=== PATIENT | female | born 1970 | race Caucasian/White ===

== ENCOUNTER 2016-08-03 10:41 | Inpatient (IN) | payer OTHER ==
[~2016-08-03] VITALS: Ht 157.4 cm; Wt 110.0 kg
[2016-08-03] VITALS (8 sets, daily range): BP systolic 114–140; BP diastolic 73–95
--- NOTE | ~2016-08-03 | CON ---
[place], [place] REPORT OF CONSULTATION NAME: MELISSA ROBBINS [facility] #: [id number] UNIT #: [id number] ROOM: 522 DOCTOR: SARIKA WEAVER MD BIRTHDATE: [birth year] DOS: 08/03/2016 CARDIOLOGY CONSULTATION REASON FOR CONSULTATION: Chest pain. HISTORY OF PRESENT ILLNESS: This is one of multiple hospitalizations for this patient, who is a 46-year-old woman who is known to have coronary artery disease. She initially presented to a hospital in [place], [place], with chest pain in August 2014. She ruled out for myocardial infarction; however, a stress test was abnormal. She was taken to the catheterization laboratory on 09/11/2014. Her left main was normal. The LAD had a 90% proximal and a 50% distal stenosis. The first diagonal had a 70% stenosis. These lesions were treated with Promus drug-eluting stents. The right coronary artery was dominant and patent. The circumflex was also patent. The patient had good relief of her symptoms. She presented to the [facility] on 11/10/2014 with atypical chest pain. She ruled out for myocardial infarction. A pharmacologic stress test showed an ejection fraction of 78% with a small area of anterior ischemia. The patient was managed medically until 09/05/2015 when she presented again with chest pain. A myocardial infarction was ruled out and she was once again managed medically. She came back into the hospital in September of 2015 with worsening chest discomfort, fatigue and dyspnea. She had no evidence for myocardial damage. A pharmacologic myocardial perfusion study was felt to be normal and she was again treated medically. She presented again to the hospital in January of 2016 with chest pain. The perfusion study done at that time showed mild transient cavity dilation with a small area of distal anterolateral ischemia. Based on her recurrent chest discomfort and mildly abnormal stress test, she was referred to [facility] for catheterization. The catheterization showed a patent LAD stent and no significant coronary artery disease. It was felt that her pains were noncardiac in origin. She presented again to the hospital on 05/30/2016 with chest pain and ruled out for myocardial infarction. No other testing was done at that time. It was felt at that point that her pains were reproducible to palpation. Her symptoms resolved spontaneously, but recurred again today while she was doing laundry. The pain is a sharp left parasternal pain with some radiation to her neck and proximal left arm, it is not made worse by deep breath or exercise. Movement does make it worse. She is somewhat short of breath with the pain, but denies nausea or diaphoresis. PAST MEDICAL HISTORY: Includes the followin. Cholecystitis, the patient has been managed conservatively because of her atherosclerotic heart disease. 2. History of hypertension. 3. Gastroesophageal reflux disease. 4. Degenerative joint disease involving the left knee. 5. Diverticulitis. 6. Ovarian cyst. 7. Anxiety and depression. [place], [place] REPORT OF CONSULTATION NAME: MELISSA ROBBINS UNIT #: [id number] ROOM: 522 DOCTOR: SARIKA WEAVER MD BIRTHDATE: [birth year] 8. Lazy right eye (strabismus since childhood). 9. Presentation with unstable angina at [place], [place], in August of 2014. The patient did undergo angioplasty and stenting of the LAD and diagonal branch. Multiple hospitalizations with chest pain since then. 10. Catheterization on January 2016 showed no evidence for recurrent coronary disease. REVIEW OF SYSTEMS: The patient denies diplopia or loss of vision. She denies lightheadedness, syncope or focal weakness. She denies nausea or vomiting. She has had some dyspnea. She denies fevers, chills, sweats or recent weight change. She denies any coffee-ground emesis. She denies bleeding from any site. She denies polydipsia or polyuria. She denies heat or cold intolerance. She denies any change in her bowel or bladder habits. She denies any skin rashes. She denies any peripheral edema. The remainder of the review of systems is negative except as noted above. FAMILY HISTORY: Positive for coronary artery disease in her brother who had a catheterization. Parents do not have a history of heart disease, high blood pressure or diabetes. MEDICATIONS PRIOR TO ADMISSION: Aspirin 81 mg daily, clopidogrel 75 mg daily, furosemide 20 mg daily, lisinopril 5 mg daily, lorazepam 1 mg p.o. b.i.d. p.r.n., metformin 500 mg b.i.d., metoprolol 25 mg b.i.d., potassium 20 mEq daily, ranitidine 150 mg at bedtime and nitroglycerin sublingually p.r.n. ALLERGIES: She has no known drug allergies. SOCIAL HISTORY: The patient was a smoker, but quit about 2 years ago. She does not consume significant amounts of alcohol. PHYSICAL EXAMINATION: GENERAL: The patient is a morbidly obese white female who is awake, alert and oriented. VITAL SIGNS: Pulse is 70 and regular, blood pressure is 114/73. She is afebrile. She weighs 110 kg and has a body mass index of 44.4. HEENT: Normocephalic, atraumatic. Extraocular muscles are intact. Sclerae are clear. Pupils are equal, round and reactive to light. The oral mucosa is moist. Tongue is midline. NECK: Supple. She has no jugular distention. Carotids are full. She has no bruits. LUNGS: Respirations are unlabored. Her chest is clear to auscultation and percussion. She has no presacral edema. She does have tenderness along her left parasternal region, which does reproduce her presenting chest pain. CARDIOVASCULAR: Her heart has a regular rhythm with a soft S4 gallop, but no S3 or murmur. The PMI is not displaced. She has no precordial heave, lift or thrill. ABDOMEN: Soft and normally active without masses, organomegaly or bruits. EXTREMITIES: Showed no edema. Peripheral pulses are palpable in the feet bilaterally. [place], [place] REPORT OF CONSULTATION NAME: MELISSA ROBBINS UNIT #: [id number] ROOM: 522 DOCTOR: SARIKA WEAVER MD BIRTHDATE: [birth year] LABORATORY DATA: I reviewed her electrocardiogram, which shows sinus rhythm and is a normal tracing. CK-MB and troponin are all normal thus far. IMPRESSION: 1. Recurrent chest pain. The patient is known to have coronary artery disease and is status post stenting to the LAD and diagonal; however, her more recent pains have been atypical and a catheterization within the last 6 months showed no progression of disease or in-stent restenosis. In addition, her pain is reproducible upon palpation of her chest, it seems very unlikely therefore that her pains represent recurrent coronary artery disease and are much more likely to be musculoskeletal in origin. 2. Morbid obesity. 3. Type 2 diabetes mellitus. PLAN: I will follow serial enzymes and EKGs. If her symptoms have not changed by morning and if her EKG and enzymes remain normal, then I think we can conclude that her pains are musculoskeletal rather than coronary ischemia in origin and treat her with supportive care. I thank Dr. Romo for asking our advice regarding her care. SARIKA WEAVER MD CM:CONSTR:REPORT OF CONSULTATION 08 08/04/16 1526 interface
[~2016-08-03 10:41] MED LIST: ACID CONTROLLER20 MG PO; AMOXICILLIN500 MG PO; AMOXIL500 MG PO; ANAPROX DS550 MG PO; ASPIRIN325 MG PO; ASPIRIN81 M1 PO; AUGMENTIN 875 M1 TAB PO; B12,B-12,B 12500 MC1 PO; B12,B-12,B 12500 MCG PO; BACTRIM DS 8001 TA1 PO; BACTROBAN CREAM15 GM T; BENTYL20 MG PO; BIAXIN500 MG PO; CARAFATE1 G1 PO; CEPHALEXIN500 M1 PO; CIPRO250 MG PO; CIPRO500 MG PO; CIPROFLOXACIN500 MG PO; CLARITIN10 MG PO; CLEOCIN HCL150 MG PO; CLEOCIN150 MG PO; Carafate1 GM PO; DIFLUCAN150 MG PO; DONNATAL1 TAB PO; EFFEXOR XR75 M1 PO; EFFEXOR37.5 MG PO; HYDROCODONE BIT1 T11 PO; INDOMETHACIN25 M1 PO; K-Dur 20MEQ20 MEQ PO; KLONOPIN0.5 MG PO; LASIX20 MG PO; LIPITOR10 MG PO; LISINOPRIL/HCTZ1 TA4 PO; LISINOPRIL5 MG PO; MEDROL DOSEPAK4 MG PO; METFORMIN500 MG PO; MIRALAX POWDER255 GM PO; MOBIC15 MG PO; MOTRIN800 MG PO; Motrin,Rufen800 MG PO; NAPROSYN500 MG PO; NATURE'S BLEND F1 MG PO; NITROSTAT0.3 MG SL; NITROSTAT0.4 MG SL; PANTOPRAZOLE40 MG PO; PERCOCET 325 MG1 TA2 PO; PERCOCET 325 MG1 TA5 PO; PLAVIX75 MG PO; PRAVACHOL80 MG PO; PREDNICOT20 MG PO; PREDNISONE20 MG PO; PRILOSEC40 MG PO; PROTONIX IV40 MG PO; PROTONIX40 MG PO; PROVENTIL0.09 MG/AC IH; PYRIDIUM200 MG PO; REGLAN5 MG PO; ROBINUL FORTE2 MG PO; ROBITUSSIN AC 110 ML PO; SEPTRA DS 800 M1 TAB PO; TEMAZEPAM15 MG PO; TESSALON PERLE100 MG PO; TESSALON PERLE200 MG PO; TOPROL XL25 MG PO; TORADOL10 MG PO; TRAMADOL HCL50 MG PO; TRAZADONE HYDR100 MG PO; TRAZODONE100 MG PO; TYLENOL W/CODEI1 TA2 PO; ULTRAM50 MG PO; VENLAFAXINE HYD75 M3 PO; VENLAFAXINE150 MG PO; VICODIN 5/500 505 MG PO; VICODIN 500 MG-1 TAB PO; ZANTAC 150150 MG PO; ZESTRIL5 MG PO; ZITHROMAX Z PA250 MG PO; ZITHROMAX250 MG PO; ZOFRAN ODT4 MG SL; ZOFRAN4 MG PO; ZOLOFT100 MG PO; ZOLOFT50 MG PO; Zofran4 MG PO
[2016-08-03] MEDS ORDERED: LORAZEPAM1 MG PO (10:51)
[2016-08-03] MEDS ORDERED: NITROGLYCERIN0.4 MG SL (10:51)
[2016-08-03 11:15] LABS: BASO % 0.4 % (0.0-1.0); EOS # 0.1 10*3/uL (0.0-0.4); EOS % 0.7 % (1.0-4.0); HEMATOCRIT 41.1 % (37.0-47.0); HEMOGLOBIN 13.5 g/dl (12.0-16.0); LYMPH # 2.1 10*3/uL (1.3-4.4); LYMPH % 25.3 % (27.0-41.0); MEAN CELL VOLUME 88.2 fl (81.0-99.0); MEAN CORPUSCULAR HGB CONC 32.8 g/dl (33.0-37.0); MEAN PLATELET VOLUME 9.5 fl (9.6-12.3); MONO # 0.4 10*3/uL (0.1-1.0); MONO % 4.7 % (3.0-9.0); NEUT # 5.6 10*3/uL (2.3-7.9); NEUT % 68.5 % (47.0-73.0); PLATELET COUNT AUTOMATED 321 10*3/uL (130-400); RED BLOOD COUNT 4.66 10*6/uL (4.10-5.10); RED CELL DISTRI WIDTH 13.3 % (0-14.5); WHITE BLOOD COUNT 8.2 10*3/uL (4.8-10.8)
[2016-08-03 11:32] LABS: BUN 7 mg/dl (7-24); CARBON DIOXIDE 26 mmol/L (21-32); CHLORIDE 108 mmol/L (98-107); EST GLOM FILT AFRICAN AMERICAN > 60 ml/min; GLUCOSE 90 mg/dL (65-99); POTASSIUM 3.9 mmol/L (3.5-5.1); SODIUM 144 mmol/L (136-145)
[2016-08-03 11:37] LABS: TROPONIN I < 0.015 ng/ml (<0.5)
[2016-08-03 18:34] LABS: CPK 54 U/L (26-192)
[2016-08-03 18:36] LABS: CKMB < 0.5 ng/ml (0.5-3.6); TROPONIN I < 0.015 ng/ml (<0.5)
[2016-08-04] VITALS: BP 102/66
[2016-08-04 00:48] LABS: CKMB < 0.5 ng/ml (0.5-3.6); CPK 49 U/L (26-192); TROPONIN I < 0.015 ng/ml (<0.5)
[2016-08-04 06:12] LABS: BASO % 0.3 % (0.0-1.0); EOS # 0.1 10*3/uL (0.0-0.4); EOS % 1.8 % (1.0-4.0); HEMOGLOBIN 12.8 g/dl (12.0-16.0); LYMPH # 2.8 10*3/uL (1.3-4.4); MEAN CELL VOLUME 88.4 fl (81.0-99.0); MEAN CORPUSCULAR HGB CONC 32.8 g/dl (33.0-37.0); MEAN PLATELET VOLUME 9.4 fl (9.6-12.3); MONO # 0.4 10*3/uL (0.1-1.0); MONO % 5.2 % (3.0-9.0); NEUT # 3.9 10*3/uL (2.3-7.9); NEUT % 53.3 % (47.0-73.0); PLATELET COUNT AUTOMATED 294 10*3/uL (130-400); RED BLOOD COUNT 4.41 10*6/uL (4.10-5.10); RED CELL DISTRI WIDTH 13.3 % (0-14.5); WHITE BLOOD COUNT 7.3 10*3/uL (4.8-10.8)
[2016-08-04 06:36] LABS: CPK 45 U/L (26-192)
[2016-08-04 06:37] LABS: CKMB < 0.5 ng/ml (0.5-3.6); TROPONIN I < 0.015 ng/ml (<0.5)
[2016-08-04 06:42] LABS: ALBUMIN 3.3 gm/dl (3.1-4.5); ALKALINE PHOSPHATASE 64 U/L (45-117); BILIRUBIN, TOTAL 0.5 mg/dl (0.2-1.0); BUN 11 mg/dl (7-24); CARBON DIOXIDE 28 mmol/L (21-32); CHLORIDE 104 mmol/L (98-107); CHOLESTEROL 171 mg/dL (<200); EST GLOM FILT AFRICAN AMERICAN > 60 ml/min; FREE T4 1.17 ng/dl (0.76-1.46); GLUCOSE 83 mg/dL (65-99); HDL CHOLESTEROL 32 mg/dl (40-60); LDL CHOLESTEROL 88 mg/dL (9-159); MAGNESIUM 2.2 mg/dL (1.5-2.1); PHOSPHOROUS 3.9 mg/dL (2.5-4.9); POTASSIUM 3.6 mmol/L (3.5-5.1); SGOT/AST 14 IU/L (3-35); SGPT/ALT 19 U/L (12-78); SODIUM 143 mmol/L (136-145); TOTAL PROTEIN 7.2 gm/dL (6.4-8.2); TRIGLYCERIDES 257 mg/dl (<150); VLDL CHOLESTEROL 51 mg/dL (6-40)
[2016-08-04 07:05] LABS: FOLIC ACID 12.1 ng/mL (>5.38)
[2016-08-04 07:20] LABS: PROTHROMBIN TIME 10.7 SECONDS (9.0-12.4)
[2016-08-04 08:00] VITALS: BP 114/82
[2016-09-23] MEDS ORDERED: BACTRIM DS 8001 TA1 PO (20:27)
== END 2016-08-04 11:27 | disposition home or self-care (01) | DRG 313 ==
LOC: ED 10:41 → EDHOLD 12:26 → 5E 12:26
PROVIDERS: Emergency Medicine; Hospitalist
DX: R07.89 Other chest pain (principal); I25.10 Atherosclerotic heart disease of native coronary artery without angina pectoris; E11.65 Type 2 diabetes mellitus with hyperglycemia; E88.81 Metabolic syndrome and other insulin resistance; Z68.41 Body mass index [BMI] 40.0-44.9, adult; E66.01 Morbid (severe) obesity due to excess calories; I10 Essential (primary) hypertension; K21.9 Gastro-esophageal reflux disease without esophagitis; H50.9 Unspecified strabismus; R00.0 Tachycardia, unspecified; E78.00 Pure hypercholesterolemia, unspecified; M17.12 Unilateral primary osteoarthritis, left knee; F41.9 Anxiety disorder, unspecified; F32.9 Major depressive disorder, single episode, unspecified; Z95.5 Presence of coronary angioplasty implant and graft; Z90.49 Acquired absence of other specified parts of digestive tract; Z90.710 Acquired absence of both cervix and uterus; Z98.890 Other specified postprocedural states; Z98.51 Tubal ligation status; Z87.891 Personal history of nicotine dependence; Z83.3 Family history of diabetes mellitus; Z82.49 Family history of ischemic heart disease and other diseases of the circulatory system; Z82.3 Family history of stroke; Z84.89 Family history of other specified conditions; Z79.84 Long term (current) use of oral hypoglycemic drugs

== ENCOUNTER 2016-10-01 13:23 | Emergency (ER) | payer OTHER ==
[~2016-10-01] VITALS: Wt 110.2 kg
[~2016-10-01 13:23] MED LIST changes: +LORAZEPAM1 MG PO; +NITROGLYCERIN0.4 MG SL
[2016-10-01] MEDS ORDERED: PROZAC20 MG PO (13:27)
[2016-10-01 13:52] LABS: BASO % 0.4 % (0.0-1.0); EOS # 0.1 10*3/uL (0.0-0.4); EOS % 1.2 % (1.0-4.0); HEMATOCRIT 37.9 % (37.0-47.0); HEMOGLOBIN 12.7 g/dl (12.0-16.0); LYMPH % 24.5 % (27.0-41.0); MEAN CELL VOLUME 86.9 fl (81.0-99.0); MEAN CORPUSCULAR HGB 29.1 pg (27.0-31.0); MEAN CORPUSCULAR HGB CONC 33.5 g/dl (33.0-37.0); MEAN PLATELET VOLUME 9.3 fl (9.6-12.3); MONO # 0.4 10*3/uL (0.1-1.0); MONO % 5.2 % (3.0-9.0); NEUT # 5.7 10*3/uL (2.3-7.9); NEUT % 68.3 % (47.0-73.0); PLATELET COUNT AUTOMATED 323 10*3/uL (130-400); RED BLOOD COUNT 4.36 10*6/uL (4.10-5.10); RED CELL DISTRI WIDTH 13.4 % (0-14.5); WHITE BLOOD COUNT 8.3 10*3/uL (4.8-10.8)
[2016-10-01 14:09] LABS: ALBUMIN 3.5 gm/dl (3.1-4.5); ALKALINE PHOSPHATASE 62 U/L (45-117); BILIRUBIN, TOTAL 0.2 mg/dl (0.2-1.0); BUN 7 mg/dl (7-24); CARBON DIOXIDE 24 mmol/L (21-32); CHLORIDE 107 mmol/L (98-107); EST GLOM FILT AFRICAN AMERICAN > 60 ml/min; GLUCOSE 117 mg/dL (65-99); POTASSIUM 3.5 mmol/L (3.5-5.1); SGOT/AST 15 IU/L (3-35); SGPT/ALT 21 U/L (12-78); SODIUM 143 mmol/L (136-145); TOTAL PROTEIN 7.2 gm/dL (6.4-8.2)
[2016-10-01 14:15] LABS: TROPONIN I < 0.015 ng/ml (<0.045)
[2016-10-01] MEDS ORDERED: ROBITUSSIN AC 110 ML PO (15:28)
[2016-10-01] MEDS ORDERED: Motrin,Rufen800 MG PO (15:28)
[2016-10-01] MEDS ORDERED: ULTRAM50 MG PO (15:28)
[2016-10-01] MEDS ORDERED: OMNICEF300 MG PO (15:28)
== END 2016-10-01 15:35 | disposition home or self-care (01) ==
LOC: ED 13:23
PROVIDERS: Emergency Medicine Emergency Medical Services
DX: R07.89 Other chest pain (principal); J40 Bronchitis, not specified as acute or chronic; E53.8 Deficiency of other specified B group vitamins; E11.9 Type 2 diabetes mellitus without complications; I10 Essential (primary) hypertension; K21.9 Gastro-esophageal reflux disease without esophagitis; E78.00 Pure hypercholesterolemia, unspecified; E66.01 Morbid (severe) obesity due to excess calories; Z68.42 Body mass index [BMI] 45.0-49.9, adult; Z95.5 Presence of coronary angioplasty implant and graft; Z90.710 Acquired absence of both cervix and uterus; Z90.49 Acquired absence of other specified parts of digestive tract; Z98.51 Tubal ligation status; Z87.891 Personal history of nicotine dependence; Z79.899 Other long term (current) drug therapy; Z79.82 Long term (current) use of aspirin; Z79.01 Long term (current) use of anticoagulants

== ENCOUNTER 2016-11-19 16:33 | Inpatient (IN) | payer OTHER ==
[~2016-11-19] VITALS: Ht 157.4 cm; Wt 108.9 kg
--- NOTE | ~2016-11-19 | ST ---
[place], [place] EXERCISE STRESS TEST REPORT NAME: MELISSA ROBBINS [facility] #: [id number] UNIT #: [id number] ROOM: 404 DOCTOR: SARIKA WEAVER MD BIRTHDATE: [birth year] DOS: 11/21/2016 PHARMACOLOGIC STRESS TEST INDICATIONS: Chest pain. PROCEDURE: The patient was given a rapid infusion of regadenoson 0.4 mg intravenously followed by a saline flush. She did develop nausea and an unusual sensation, but did not have any chest pain. The resting electrocardiogram was normal. No acute changes occurred with the infusion. Her resting heart rate of 63 kita to 89. The resting blood pressure of 128/78 fell to 108/58. After the infusion of regadenoson, she was given radionuclide intravenously. IMPRESSION: 1. Well tolerated infusion of regadenoson. 2. Radionuclide administered. Please see the separate imaging report for further details of the patient's stress test results. SARIKA WEAVER MD CM:STRESS:EXERCISE STRESS TEST REPORT 1011 2102 SARIKA WEAVER MD
--- NOTE | ~2016-11-19 | EKG ---
[place], [place] ELECTROCARDIOGRAM REPORT NAME: MELISSA ROBBINS UNIT #: [id number] ROOM: 404 DOCTOR: SARIKA WEAVER MD BIRTHDATE: [birth year] DOS: 11/19/2016 TIME: 04:41 p.m. Sinus rhythm with rate 86. Nonspecific T-wave flattening. An abnormal electrocardiogram. SARIKA WEAVER MD CM:EKGRPT:ELECTROCARDIOGRAM REPORT 1224 1619 SARIKA WEAVER MD
--- NOTE | ~2016-11-19 | WRIGHTHP ---
[place], [place] PATIENT HISTORY AND PHYSICAL EXAM NAME: MELISSA ROBBINS [facility] #: [id number] UNIT #: [id number] ROOM: 404 DOCTOR: JENNA HENDRICKS DO BIRTHDATE: [birth year] DOS: PRIMARY CARE PHYSICIAN: Dr. Perez. The patient was seen and evaluated with the resident on 11/20/2016. Please see the resident's note for further details. ASSESSMENT: 1. Chest pain, rule out myocardial infarction. 2. Coronary artery disease with history of stent in August 2014. 3. Abnormal cardiac stress test in January 2016 leading to a cardiac catheterization at that time which showed no significant disease and no intervention was done at that time. 4. Diabetes mellitus type 2. 5. Hyperlipidemia. 6. Gastroesophageal reflux disease. 7. Ex-smoker. 8. Obesity. 9. Obstructive sleep apnea. 10. Anxiety. 11. Echocardiogram in May 2016 measured a normal ejection fraction. PLAN: The patient will be kept again overnight. Cardiology has been consulted and evaluated the patient. A stress test has been ordered for tomorrow. Probable discharge tomorrow if the test is negative. JENNA HENDRICKS DO CM:HISPHYS:PATIENT HISTORY AND PHYSICAL EXAMINATION 1458 1523 JENNA HENDRICKS DO 11/20/16 1524 interface
--- NOTE | ~2016-11-19 | PR ---
[place], [place] PROGRESS NOTE NAME: MELISSA ROBBINS [facility] #: [id number] UNIT #: [id number] ROOM: 404 DOCTOR: SARIKA WEAVER MD BIRTHDATE: [birth year] DOS: 11/21/2016 CARDIOLOGY PROGRESS NOTE SUBJECTIVE: The patient is a 46-year-old woman who is seen today 11/21/2016 for followup of her atherosclerotic heart disease and newly occurring chest discomfort. She is a 46-year-old woman who does have a history of atherosclerotic heart disease and is status post 2 previously placed stents 2 years ago in [place], [place]. She has risk factors of diabetes, hypertension and hyperlipidemia and also has a history of obstructive sleep apnea. She presented after she developed pressure in her left chest radiating to her left shoulder while doing some light work. She states that taking a deep breath may make the pain a little better, but there is nothing that she can do that makes it worse. The pain does come and go on its own. Since she has been in the hospital, she has had no elevation in cardiac biomarkers and generally feels a little bit better. PHYSICAL EXAMINATION: VITAL SIGNS: Today, her pulse is 57 and regular, blood pressure is 132/74, she is afebrile. She weighs 108.9 kilograms with a body mass index of 44. HEENT: Head is normocephalic and atraumatic. Extraocular muscles are intact. Sclerae are clear. NECK: Supple. She has no jugular distention. Carotids are full. She has no neck or supraclavicular masses. LUNGS: Respirations are unlabored. Her chest is clear to auscultation and percussion. She has no presacral edema. HEART: Has a regular rhythm with a soft S4 gallop, but no S3 or murmur. The PMI was not displaced. I could not reproduce her chest pain by palpation of her chest. ABDOMEN: Benign. EXTREMITIES: Showed no edema. DIAGNOSTIC DATA: Her electrocardiogram today shows sinus rhythm and is a normal tracing. IMPRESSION: 1. Chest pain with radiation to the left shoulder. No evidence for acute myocardial infarction. 2. History of coronary artery disease, status post previously placed stents. 3. Diabetes. 4. Hypertension. 5. Hyperlipidemia. 6. Obesity. 7. Obstructive sleep apnea. PLAN: There are both typical and atypical portions to the patient's presentation. In order to evaluate her further, we will proceed with a pharmacologic stress test. Further recommendations will depend upon the results of the stress examination. [place], [place] PROGRESS NOTE NAME: MELISSA ROBBINS UNIT #: [id number] ROOM: [facility] DOCTOR: SARIKA WEAVER MD BIRTHDATE: [birth year] SARIKA WEAVER MD CM:PNTRANS 1005 12 SARIKA WEAVER MD 11/21/16 2013 interface
--- NOTE | ~2016-11-19 | CON ---
[place], [place] REPORT OF CONSULTATION [id number] UNIT #: [id number] ROOM: 404 DOCTOR: FLOR CASH MD BIRTHDATE: [birth year] DOS: 11/20/2016 REQUESTING PHYSICIAN: Dr. Verduzco. REASON FOR CONSULTATION: Chest pain. ASSESSMENT: 1. Current presentation with classic chest pain, heaviness and tightness. 2. History of coronary artery disease with previously placed 2 stents 2 years ago in [place]. 3. Diabetes. 4. Hypertension. 5. Unknown level of lipid. 6. Obesity with known history of obstructive sleep apnea, currently patient on CPAP. 7. Possible early family history of heart disease. PLAN: Proceed with: 1. Cycle cardiac enzymes. 2. Keep the patient n.p.o. for a stress test in a.m. 3. Lopressor 25 mg 1 tablet p.o. b.i.d. 4. Enteric-coated aspirin 81 mg once a day. 5. Consider exercise and weight loss. 6. Call back for recurrent complaint of chest pain despite the possibility of normal stress test. 7. Obtain old record from [place]. 8. Okay to discharge following the stress test. HISTORY AND PHYSICAL: The patient is a pleasant 46-year-old female unknown to our practice, was referred by Dr. Verduzco for further evaluation of complaint of chest pain that occurred yesterday while the patient at work, walking with activity. The pain is substernal heaviness, tightness along with pressure, it did reach almost 8/10, lasted about 30 minutes with radiation towards the left shoulder and arm and in a circular fashion to the back. The patient had different kind of pain prior to stent placement. No nausea, vomiting or diaphoresis. The pain though did improve with nitroglycerin upon presentation to the Emergency Room. The patient has been relatively active. She appeared to be [place] Heart [employer] class 2-3, she denies ever any symptomatic palpitation or any associated dizziness, lightheadedness, or syncope. She sleeps on 1 pillow with no reported PND, orthopnea, or pedal edema. No fever, no chills, no night sweats, maintained good appetite. No recent weight loss. PAST MEDICAL HISTORY: As detailed in my assessment. SOCIAL HISTORY: The patient quit smoking 1 year ago. Also, the patient quit alcohol abuse about 4 months ago. Denies any illicit drug abuse, though. FAMILY HISTORY: The patient's mother at age 73 of [place] and congestive heart failure, she is not sure when did her heart problem started. The patient's father is unknown to the patient. She has 4 brothers and no sisters, one of her [place], [place] REPORT OF CONSULTATION NAME: MELISSA ROBBINS UNIT #: [id number] ROOM: 404 DOCTOR: FLOR CASH MD BIRTHDATE: [birth year] brothers at age 51 had a pacemaker. CURRENT MEDICATIONS: Lovenox, Zofran, bisacodyl, Tylenol and nitroglycerin along with aspirin. ALLERGIES: The patient has no known drug allergies. REVIEW OF SYSTEMS: Currently, the patient denies any headache, diplopia or blurry vision. No fever, no chills, no night sweats. No abdominal pain, no bright red blood per rectum, no tarry stools. The patient admits to joint pain, but no muscular pain, admits to low back pain. No anxiety, no depression. No polyuria, no polydipsia, no skin rash. Review of all other systems has been negative. PHYSICAL EXAMINATION: GENERAL: The patient is alert, oriented x3, pleasant, sitting up in bed, does not appear in distress. VITAL SIGNS: Blood pressure 132/80, heart rate 68, respiratory rate of 14, temperature 98.3. HEENT: Extraocular muscles intact. Pupils equal, round, and reactive to light. Conjunctivae: No pallor. Throat: No petechiae. NECK: Good upstroke. Unable to appreciate any bruit, no lymphadenopathy, no thyromegaly. HEART: S1, S2 with holosystolic murmur left upper sternal border, loud P2. CHEST AND BACK: No deformities. LUNGS: Significant decreased air movement, no naya wheezing or rales. ABDOMEN: Morbidly obese, soft, nontender, present bowel sounds, no masses, no bruits. LOWER EXTREMITIES: Mild edema bilateral with faint distal pulses. NEUROLOGIC: Grossly nonfocal. SKIN: No significant rash. LABORATORY DATA: White count 7.6, hemoglobin 12.7. Potassium 3.7, GFR more than 60, magnesium 2.3. Troponin less than 0.015 on two occasions. Total cholesterol is 183, LDL is 83, HDL 28. Triglyceride is 361. TSH 1.070. FLOR CASH MD CM:CONSTR:REPORT OF CONSULTATION 1021 11/20/16 1616 interface
[~2016-11-19 16:33] MED LIST changes: +OMNICEF300 MG PO; +PROZAC20 MG PO
[2016-11-19 16:37] VITALS: BP 123/76
[2016-11-19 16:48] LABS: BASO % 0.2 % (0.0-1.0); EOS # 0.1 10*3/uL (0.0-0.4); EOS % 1.2 % (1.0-4.0); HEMOGLOBIN 13.4 g/dl (12.0-16.0); IG # 0.1 10*3/uL (0.0-0.1); LYMPH # 2.8 10*3/uL (1.3-4.4); LYMPH % 26.7 % (27.0-41.0); MEAN CELL VOLUME 85.7 fl (81.0-99.0); MEAN CORPUSCULAR HGB 28.7 pg (27.0-31.0); MEAN CORPUSCULAR HGB CONC 33.5 g/dl (33.0-37.0); MEAN PLATELET VOLUME 9.5 fl (9.6-12.3); MONO # 0.4 10*3/uL (0.1-1.0); MONO % 3.8 % (3.0-9.0); NEUT # 7.1 10*3/uL (2.3-7.9); NEUT % 67.6 % (47.0-73.0); PLATELET COUNT AUTOMATED 380 10*3/uL (130-400); RED BLOOD COUNT 4.67 10*6/uL (4.10-5.10); RED CELL DISTRI WIDTH 13.2 % (0-14.5); WHITE BLOOD COUNT 10.5 10*3/uL (4.8-10.8)
[2016-11-19 16:57] LABS: PROTHROMBIN TIME 10.9 SECONDS (9.0-12.4)
[2016-11-19 17:07] LABS: ALBUMIN 3.5 gm/dl (3.1-4.5); ALKALINE PHOSPHATASE 70 U/L (45-117); BILIRUBIN, TOTAL 0.3 mg/dl (0.2-1.0); BUN 9 mg/dl (7-24); C-REACTIVE PROTEIN 1.73 MG/DL (0-0.3); CARBON DIOXIDE 27 mmol/L (21-32); CHLORIDE 104 mmol/L (98-107); CPK 113 U/L (26-192); EST GLOM FILT AFRICAN AMERICAN > 60 ml/min; GLUCOSE 103 mg/dL (65-99); MAGNESIUM 1.8 mg/dL (1.5-2.1); POTASSIUM 3.4 mmol/L (3.5-5.1); SGOT/AST 17 IU/L (3-35); SGPT/ALT 20 U/L (12-78); SODIUM 137 mmol/L (136-145); TOTAL PROTEIN 7.5 gm/dL (6.4-8.2)
[2016-11-19 17:08] LABS: TROPONIN I < 0.015 ng/ml (<0.045)
[2016-11-19 17:39] VITALS: BP 138/75
[2016-11-19 18:46] LABS: LA>2 REFLEX 2 HR DRAW NOW
[2016-11-19 18:51] VITALS: BP 139/82
[2016-11-20] VITALS: BP 133/86
[2016-11-20 06:32] LABS: BASO % 0.5 % (0.0-1.0); EOS # 0.2 10*3/uL (0.0-0.4); EOS % 2.4 % (1.0-4.0); HEMOGLOBIN 12.7 g/dl (12.0-16.0); LYMPH # 2.7 10*3/uL (1.3-4.4); LYMPH % 35.4 % (27.0-41.0); MEAN CELL VOLUME 88.2 fl (81.0-99.0); MEAN CORPUSCULAR HGB 29.5 pg (27.0-31.0); MEAN CORPUSCULAR HGB CONC 33.4 g/dl (33.0-37.0); MEAN PLATELET VOLUME 9.6 fl (9.6-12.3); MONO # 0.4 10*3/uL (0.1-1.0); MONO % 5.8 % (3.0-9.0); NEUT # 4.2 10*3/uL (2.3-7.9); NEUT % 55.5 % (47.0-73.0); NUCLEATED RED BLOOD CELL 0.4 % (0.0-0.0); PLATELET COUNT AUTOMATED 316 10*3/uL (130-400); RED BLOOD COUNT 4.31 10*6/uL (4.10-5.10); RED CELL DISTRI WIDTH 13.2 % (0-14.5); WHITE BLOOD COUNT 7.6 10*3/uL (4.8-10.8)
[2016-11-20 06:54] LABS: ALKALINE PHOSPHATASE 62 U/L (45-117); BILIRUBIN, TOTAL 0.3 mg/dl (0.2-1.0); BUN 9 mg/dl (7-24); CARBON DIOXIDE 26 mmol/L (21-32); CHLORIDE 107 mmol/L (98-107); CHOLESTEROL 183 mg/dL (<200); EST GLOM FILT AFRICAN AMERICAN > 60 ml/min; GLUCOSE 95 mg/dL (65-99); HDL CHOLESTEROL 28 mg/dl (40-60); LDL CHOLESTEROL 83 mg/dL (9-159); MAGNESIUM 2.3 mg/dL (1.5-2.1); POTASSIUM 3.7 mmol/L (3.5-5.1); SGOT/AST 19 IU/L (3-35); SGPT/ALT 19 U/L (12-78); SODIUM 142 mmol/L (136-145); TOTAL PROTEIN 6.7 gm/dL (6.4-8.2); TRIGLYCERIDES 361 mg/dl (<150); VLDL CHOLESTEROL 72 mg/dL (6-40)
[2016-11-20 08:00] VITALS: BP 130/82
[2016-11-20 12:00] VITALS: BP 149/90
[2016-11-20 16:00] VITALS: BP 132/77
[2016-11-20 20:00] VITALS: BP 147/98
[2016-11-21] VITALS: BP 138/87
[2016-11-21 07:32] LABS: BASO % 0.5 % (0.0-1.0); EOS # 0.2 10*3/uL (0.0-0.4); EOS % 2.3 % (1.0-4.0); HEMATOCRIT 39.4 % (37.0-47.0); HEMOGLOBIN 12.9 g/dl (12.0-16.0); IG # 0.1 10*3/uL (0.0-0.1); LYMPH # 2.4 10*3/uL (1.3-4.4); LYMPH % 29.4 % (27.0-41.0); MEAN CORPUSCULAR HGB 28.5 pg (27.0-31.0); MEAN CORPUSCULAR HGB CONC 32.7 g/dl (33.0-37.0); MEAN PLATELET VOLUME 9.7 fl (9.6-12.3); MONO # 0.5 10*3/uL (0.1-1.0); MONO % 5.5 % (3.0-9.0); NEUT # 5.1 10*3/uL (2.3-7.9); NEUT % 61.6 % (47.0-73.0); PLATELET COUNT AUTOMATED 317 10*3/uL (130-400); RED BLOOD COUNT 4.53 10*6/uL (4.10-5.10); RED CELL DISTRI WIDTH 13.2 % (0-14.5); WHITE BLOOD COUNT 8.2 10*3/uL (4.8-10.8)
[2016-11-21 08:00] VITALS: BP 132/74
[2016-11-21 08:02] LABS: ALBUMIN 3.2 gm/dl (3.1-4.5); ALKALINE PHOSPHATASE 66 U/L (45-117); BILIRUBIN, TOTAL 0.4 mg/dl (0.2-1.0); BUN 11 mg/dl (7-24); CARBON DIOXIDE 28 mmol/L (21-32); CHLORIDE 106 mmol/L (98-107); EST GLOM FILT AFRICAN AMERICAN > 60 ml/min; GLUCOSE 91 mg/dL (65-99); MAGNESIUM 2.4 mg/dL (1.5-2.1); POTASSIUM 3.9 mmol/L (3.5-5.1); SGOT/AST 16 IU/L (3-35); SGPT/ALT 17 U/L (12-78); SODIUM 143 mmol/L (136-145); TOTAL PROTEIN 7.1 gm/dL (6.4-8.2)
[2016-11-21 12:00] VITALS: BP 151/86
[2016-11-21 16:00] VITALS: BP 134/80
[2016-11-21] MEDS ORDERED: PRAVACHOL40 MG PO (19:40)
[2016-11-21] MEDS ORDERED: LOPRESSOR25 MG PO (19:40)
[2016-11-21 20:00] VITALS: BP 133/78
== END 2016-11-21 21:40 | disposition home or self-care (01) | DRG 391 ==
LOC: ED 16:33 → 4E 17:48 → EDHOLD 17:48 → 4E 18:07
PROVIDERS: Emergency Medicine; Family Medicine Adult Medicine; Student in an Organized Health Care Education/Training Program
PROC: 4A02XM4 Measurement of Cardiac Total Activity, External Approach (ICD-10-PCS; principal; 2016-11-21)
PROC: 3E073KZ Introduction of Other Diagnostic Substance into Coronary Artery, Percutaneous Approach (ICD-10-PCS; 2016-11-21)
DX: K21.9 Gastro-esophageal reflux disease without esophagitis (principal); J18.9 Pneumonia, unspecified organism; E44.1 Mild protein-calorie malnutrition; E11.65 Type 2 diabetes mellitus with hyperglycemia; Z68.42 Body mass index [BMI] 45.0-49.9, adult; F41.9 Anxiety disorder, unspecified; R07.89 Other chest pain; I25.10 Atherosclerotic heart disease of native coronary artery without angina pectoris; I10 Essential (primary) hypertension; E53.8 Deficiency of other specified B group vitamins; E66.01 Morbid (severe) obesity due to excess calories; E78.00 Pure hypercholesterolemia, unspecified; E78.5 Hyperlipidemia, unspecified; G47.33 Obstructive sleep apnea (adult) (pediatric); Z87.891 Personal history of nicotine dependence; Z95.5 Presence of coronary angioplasty implant and graft; Z90.710 Acquired absence of both cervix and uterus; Z90.49 Acquired absence of other specified parts of digestive tract; Z82.49 Family history of ischemic heart disease and other diseases of the circulatory system; Z82.3 Family history of stroke; Z84.89 Family history of other specified conditions; Z79.82 Long term (current) use of aspirin; Z79.899 Other long term (current) drug therapy

== ENCOUNTER → 2016-12-09 | Day surgery (SDC) | payer OTHER ==
[~2016-12-09] VITALS: Ht 157.4 cm; Wt 106.1 kg
[~2016-12-09] MED LIST changes: +LOPRESSOR25 MG PO; +PRAVACHOL40 MG PO
--- NOTE | ~2016-12-09 | PROC NOTE ---
[place], [place] PROCEDURE NOTE NAME: MELISSA ROBBINS [facility] #: [id number] UNIT #: [id number] ROOM: DOCTOR: BEAU CRESPO MD BIRTHDATE: [birth year] DOS: 12/09/2016 PREOPERATIVE DIAGNOSIS: Epigastric pain, history of gastroesophageal reflux disease. POSTOPERATIVE DIAGNOSIS: Gastroesophageal reflux disease, retained stomach contents. PROCEDURE: Esophagogastroduodenoscopy. ENDOSCOPIST: Beau Crespo MD DOBBY LOOM CHAIN PEGGER: None. ANESTHESIA: MAC. INDICATIONS: This is a 46-year-old lady with a history of epigastric pain and also previously diagnosed GERD and gastritis, who is here for an EGD. The procedure and its complications were explained to the patient in detail preoperatively. Complications that were discussed included but were not limited to bleeding, missed lesions and stomach perforation. She agreed to proceed. DESCRIPTION OF PROCEDURE: After identifying the patient, the patient was brought to the endoscopy suite and laid in the left lateral position. After time-out procedure was called, IV sedation was administered and a bite block was placed. An adult gastroscope was now passed through the bite block into the mouth and advanced sequentially into the pharynx, esophagus, stomach and the first 2 parts of the duodenum. Upon entering the stomach, there was found to be some retained food and also in the region of the pylorus, there was some retained food that could be visualized. There was no obvious obstruction distally in the region of the first and the second parts of the duodenum. Upon retroflexion of the scope, there were no mucosal lesions that could be seen or any active bleeding that could be visualized. The scope was then withdrawn and the esophagus was found to be normal. The patient was then taken to the recovery room in a sterile fashion. The patient was stable throughout the case. Beau Crespo MD CM:PROCNOTE:PROCEDURE NOTE [id number] 0203 BEAU CRESPO MD
[2016-12-09 08:03] VITALS: BP 91/40
[2016-12-09 08:15] VITALS: BP 96/42
[2016-12-09 08:29] VITALS: BP 110/73
== END | disposition home or self-care (01) ==
LOC: SDC 12-06 08:00
DX: R10.13 Epigastric pain (principal); K21.9 Gastro-esophageal reflux disease without esophagitis; F41.9 Anxiety disorder, unspecified; I10 Essential (primary) hypertension; F32.9 Major depressive disorder, single episode, unspecified; I25.10 Atherosclerotic heart disease of native coronary artery without angina pectoris; M17.12 Unilateral primary osteoarthritis, left knee; Z86.14 Personal history of Methicillin resistant Staphylococcus aureus infection; E11.9 Type 2 diabetes mellitus without complications; Z95.818 Presence of other cardiac implants and grafts; Z98.51 Tubal ligation status; Z98.890 Other specified postprocedural states; Z87.891 Personal history of nicotine dependence; Z82.49 Family history of ischemic heart disease and other diseases of the circulatory system; Z82.3 Family history of stroke

== ENCOUNTER 2016-12-26 14:17 | Emergency (ER) | payer OTHER ==
[~2016-12-26] VITALS: Ht 157.4 cm; Wt 106.1 kg
[2016-12-26 15:06] LABS: BASO % 0.2 % (0.0-1.0); EOS # 0.2 10*3/uL (0.0-0.4); EOS % 1.2 % (1.0-4.0); HEMATOCRIT 40.6 % (37.0-47.0); HEMOGLOBIN 13.4 g/dl (12.0-16.0); IG # 0.1 10*3/uL (0.0-0.1); LYMPH # 3.1 10*3/uL (1.3-4.4); LYMPH % 25.6 % (27.0-41.0); MEAN CELL VOLUME 85.8 fl (81.0-99.0); MEAN CORPUSCULAR HGB 28.3 pg (27.0-31.0); MEAN PLATELET VOLUME 9.9 fl (9.6-12.3); MONO # 0.6 10*3/uL (0.1-1.0); MONO % 4.8 % (3.0-9.0); NEUT # 8.1 10*3/uL (2.3-7.9); NEUT % 67.8 % (47.0-73.0); PLATELET COUNT AUTOMATED 394 10*3/uL (130-400); RED BLOOD COUNT 4.73 10*6/uL (4.10-5.10); RED CELL DISTRI WIDTH 13.2 % (0-14.5)
[2016-12-26 15:20] LABS: ALBUMIN 3.9 gm/dl (3.1-4.5); ALKALINE PHOSPHATASE 78 U/L (45-117); BILIRUBIN, TOTAL 0.6 mg/dl (0.2-1.0); BUN 8 mg/dl (7-24); CARBON DIOXIDE 25 mmol/L (21-32); CHLORIDE 104 mmol/L (98-107); EST GLOM FILT AFRICAN AMERICAN > 60 ml/min; GLUCOSE 85 mg/dL (65-99); SGOT/AST 22 IU/L (3-35); SGPT/ALT 21 U/L (12-78); SODIUM 142 mmol/L (136-145); TOTAL PROTEIN 8.4 gm/dL (6.4-8.2)
[2016-12-26 17:08] VITALS: BP 109/55
[2016-12-26 17:09] LABS: BILIRUBIN NEGATIVE (NEGATIVE); BLOOD NEGATIVE (NEGATIVE); CLARITY SL CLOUDY (CLEAR); COLOR YELLOW (YELLOW); GLUCOSE NEGATIVE (NEGATIVE); KETONE TRACE (NEGATIVE); LEUKO ESTERASE NEGATIVE (NEGATIVE); NITRITE NEGATIVE (NEGATIVE); PROTEIN NEGATIVE (NEGATIVE); SPECIFIC GRAVITY <= 1.005 (1.005-1.030); UROBILINOGEN 0.2 E.U./dl (0.2-1.0)
[2016-12-26 17:16] LABS: BACTERIA 1+; EPITHELIAL CELLS TNTC; URINE REFLEX COMMENT NO (NO)
[2016-12-26] MEDS ORDERED: OMEPRAZOLE40 MG PO (17:52)
== END 2016-12-26 17:32 | disposition home or self-care (01) ==
LOC: ED 14:17
PROVIDERS: Registered Nurse
DX: R10.31 Right lower quadrant pain (principal); Z79.82 Long term (current) use of aspirin; Z79.899 Other long term (current) drug therapy; Z87.891 Personal history of nicotine dependence

== ENCOUNTER 2017-01-09 11:21 | Emergency (ER) | payer OTHER ==
[~2017-01-09] VITALS: Ht 162.5 cm; Wt 90.7 kg
[2017-01-09 11:21] VITALS: BP 118/97
[~2017-01-09 11:21] MED LIST changes: +OMEPRAZOLE40 MG PO
[2017-01-09 11:58] LABS: BILIRUBIN NEGATIVE (NEGATIVE); BLOOD TRACE-INTACT (NEGATIVE); CLARITY CLOUDY (CLEAR); COLOR YELLOW (YELLOW); GLUCOSE NEGATIVE (NEGATIVE); KETONE NEGATIVE (NEGATIVE); LEUKO ESTERASE 1+ (NEGATIVE); NITRITE NEGATIVE (NEGATIVE); PROTEIN NEGATIVE (NEGATIVE); UROBILINOGEN 0.2 E.U./dl (0.2-1.0)
[2017-01-09 12:00] LABS: BASO % 0.2 % (0.0-1.0); EOS # 0.1 10*3/uL (0.0-0.4); EOS % 1.4 % (1.0-4.0); HEMATOCRIT 39.6 % (37.0-47.0); HEMOGLOBIN 12.8 g/dl (12.0-16.0); LYMPH # 2.1 10*3/uL (1.3-4.4); MEAN CELL VOLUME 87.2 fl (81.0-99.0); MEAN CORPUSCULAR HGB 28.2 pg (27.0-31.0); MEAN CORPUSCULAR HGB CONC 32.3 g/dl (33.0-37.0); MEAN PLATELET VOLUME 9.4 fl (9.6-12.3); MONO # 0.4 10*3/uL (0.1-1.0); MONO % 4.3 % (3.0-9.0); NEUT # 6.5 10*3/uL (2.3-7.9); NEUT % 70.7 % (47.0-73.0); PLATELET COUNT AUTOMATED 395 10*3/uL (130-400); RED BLOOD COUNT 4.54 10*6/uL (4.10-5.10); RED CELL DISTRI WIDTH 13.2 % (0-14.5); WHITE BLOOD COUNT 9.2 10*3/uL (4.8-10.8)
[2017-01-09 12:09] LABS: BACTERIA TRACE; EPITHELIAL CELLS TNTC; URINE REFLEX COMMENT YES (NO)
[2017-01-09 12:10] LABS: WBC 0-2 wbc/hpf (0-5)
[2017-01-09 12:16] LABS: ALBUMIN 3.4 gm/dl (3.1-4.5); ALKALINE PHOSPHATASE 72 U/L (45-117); BILIRUBIN, TOTAL 0.4 mg/dl (0.2-1.0); BUN 13 mg/dl (7-24); CARBON DIOXIDE 28 mmol/L (21-32); CHLORIDE 104 mmol/L (98-107); EST GLOM FILT AFRICAN AMERICAN > 60 ml/min; GLUCOSE 90 mg/dL (65-99); POTASSIUM 4.3 mmol/L (3.5-5.1); SGOT/AST 21 IU/L (3-35); SGPT/ALT 22 U/L (12-78); SODIUM 141 mmol/L (136-145); TOTAL PROTEIN 7.9 gm/dL (6.4-8.2)
[2017-01-09] MEDS ORDERED: NAPROSYN500 MG PO (14:52)
== END 2017-01-09 15:14 | disposition home or self-care (01) ==
LOC: ED 11:21
PROVIDERS: Emergency Medicine
DX: R10.31 Right lower quadrant pain (principal); R11.0 Nausea; Z87.891 Personal history of nicotine dependence; Z95.5 Presence of coronary angioplasty implant and graft; Z90.49 Acquired absence of other specified parts of digestive tract; I10 Essential (primary) hypertension; E78.00 Pure hypercholesterolemia, unspecified; I25.10 Atherosclerotic heart disease of native coronary artery without angina pectoris; K21.9 Gastro-esophageal reflux disease without esophagitis; E11.9 Type 2 diabetes mellitus without complications; Z79.82 Long term (current) use of aspirin; Z79.899 Other long term (current) drug therapy

== ENCOUNTER 2017-01-19 13:44 | Emergency (ER) | payer OTHER ==
[~2017-01-19] VITALS: Ht 157.4 cm; Wt 113.4 kg
[2017-01-19 14:04] VITALS: BP 154/94
[2017-01-19 14:37] LABS: BASO % 0.3 % (0.0-1.0); EOS # 0.1 10*3/uL (0.0-0.4); EOS % 1.1 % (1.0-4.0); HEMATOCRIT 37.4 % (37.0-47.0); HEMOGLOBIN 12.5 g/dl (12.0-16.0); LYMPH # 2.3 10*3/uL (1.3-4.4); LYMPH % 25.9 % (27.0-41.0); MEAN CELL VOLUME 85.4 fl (81.0-99.0); MEAN CORPUSCULAR HGB 28.5 pg (27.0-31.0); MEAN CORPUSCULAR HGB CONC 33.4 g/dl (33.0-37.0); MEAN PLATELET VOLUME 9.6 fl (9.6-12.3); MONO # 0.4 10*3/uL (0.1-1.0); MONO % 4.8 % (3.0-9.0); NEUT % 67.4 % (47.0-73.0); PLATELET COUNT AUTOMATED 320 10*3/uL (130-400); RED BLOOD COUNT 4.38 10*6/uL (4.10-5.10); RED CELL DISTRI WIDTH 13.3 % (0-14.5); WHITE BLOOD COUNT 8.8 10*3/uL (4.8-10.8)
[2017-01-19 14:40] LABS: ALBUMIN 3.4 gm/dl (3.1-4.5); ALKALINE PHOSPHATASE 66 U/L (45-117); BILIRUBIN, TOTAL 0.4 mg/dl (0.2-1.0); BUN 10 mg/dl (7-24); C-REACTIVE PROTEIN 0.99 MG/DL (0-0.3); CARBON DIOXIDE 27 mmol/L (21-32); CHLORIDE 106 mmol/L (98-107); EST GLOM FILT AFRICAN AMERICAN > 60 ml/min; GLUCOSE 86 mg/dL (65-99); POTASSIUM 3.6 mmol/L (3.5-5.1); SGOT/AST 21 IU/L (3-35); SGPT/ALT 22 U/L (12-78); SODIUM 141 mmol/L (136-145); TOTAL PROTEIN 7.5 gm/dL (6.4-8.2)
[2017-01-19 15:31] LABS: BILIRUBIN NEGATIVE (NEGATIVE); BLOOD NEGATIVE (NEGATIVE); CLARITY SL CLOUDY (CLEAR); COLOR YELLOW (YELLOW); GLUCOSE NEGATIVE (NEGATIVE); KETONE NEGATIVE (NEGATIVE); LEUKO ESTERASE NEGATIVE (NEGATIVE); NITRITE NEGATIVE (NEGATIVE); PROTEIN NEGATIVE (NEGATIVE); UROBILINOGEN 0.2 E.U./dl (0.2-1.0)
[2017-01-19 15:40] LABS: BACTERIA 1+
[2017-01-19 15:41] LABS: EPITHELIAL CELLS 21-30; URINE REFLEX COMMENT NO (NO)
[2017-01-19] MEDS ORDERED: ZANTAC 150150 MG PO (17:50)
[2017-01-19] MEDS ORDERED: ZOFRAN ODT4 MG SL (17:50)
== END 2017-01-19 18:09 | disposition home or self-care (01) ==
LOC: ED 13:44
PROVIDERS: Physician Assistant
DX: R10.31 Right lower quadrant pain (principal); R11.2 Nausea with vomiting, unspecified; Z87.891 Personal history of nicotine dependence; Z95.5 Presence of coronary angioplasty implant and graft; Z90.49 Acquired absence of other specified parts of digestive tract; Z79.82 Long term (current) use of aspirin; Z79.899 Other long term (current) drug therapy; Z87.442 Personal history of urinary calculi

== ENCOUNTER 2017-02-26 23:55 | Inpatient (IN) | payer OTHER ==
[~2017-02-26] VITALS: Ht 157.4 cm; Wt 112.0 kg
--- NOTE | ~2017-02-26 | CON ---
[place], [place] REPORT OF CONSULTATION NAME: MELISSA ROBBINS UNIT #: [id number] ROOM: 519 DOCTOR: TALYA CAMPANA BIRTHDATE: [birth year] DOS: 02/28/2017 HISTORY OF PRESENT ILLNESS: The patient is a 46-year-old female with history of coronary artery stent placed at the age of 44, presented via the Emergency Room with chest discomfort. No acute EKG changes suggestion of myocardial injury or infarction. She was admitted. In November, she had a negative stress test. Cardiac you, she has done quite well. She also states that she has a ____ and gastroesophageal reflux disease which appears to be normal. Right now, she has remained chest pain free, as mentioned no acute EKG changes suggestion of myocardial ischemia. PAST MEDICAL HISTORY: Significant for coronary artery disease, diabetes mellitus, hypertension, hyperlipidemia, metabolic syndrome, ____, obesity and pericarditis. PAST SURGICAL HISTORY: History of coronary artery stent placement, hysterectomy and cholecystectomy. SOCIAL HISTORY: Currently nondrinker, does not use drugs. Former cigarette smoker, smoked about 1 pack per day for 6 years. FAMILY HISTORY: Positive for coronary artery disease. ALLERGIES: None. HOME MEDICATIONS: Aspirin, metformin, nitroglycerin, potassium and Zantac. REVIEW OF SYSTEMS: CONSTITUTIONAL: No fever, no chills. HEENT: No visual disturbances or hearing problems. CARDIOVASCULAR: As per HPI. GASTROINTESTINAL: No nausea, no vomiting, sometimes abdominal pain. GENITOURINARY: Denies any dysuria, hematuria. ENDOCRINE: Intact. SKIN: Normal. PHYSICAL EXAMINATION: VITAL SIGNS: Blood pressure is 130/70. She is in sinus rhythm. HEENT: Unremarkable. NECK: Supple, no JVD, no thyromegaly, no lymphadenopathy. LUNGS: Clear to auscultation and percussion. CARDIOVASCULAR: Heart sounds are regular. No murmur, no rub. ABDOMEN: Soft, nontender. NEUROLOGICAL: Stable. LABORATORY DATA: Sodium 142, potassium 3.2. GFR is normal. Liver functions are normal. Troponins have been negative. INR is normal. Hemoglobin 11.4 and hematocrit 35.2. IMPRESSION: The patient with known coronary artery with chest pain, [place], [place] REPORT OF CONSULTATION NAME: MELISSA ROBBINS UNIT #: [id number] ROOM: [facility] DOCTOR: ANA BABIN MD BIRTHDATE: [birth year] gastroesophageal reflux disease, diabetes, hypertension and hyperlipidemia. Recent stress test is normal. RECOMMENDATIONS: I agree with getting CT of the abdomen and pelvis, which basically was done yesterday and basically showed several small stones in the left kidney, but no evidence of any hydronephrosis, no acute etiology. Continue the present care. Supplement the potassium. Continue the clopidogrel and aspirin. The patient is not on any antianginals or beta- blockers in spite after having significant coronary artery disease. I would recommend to start the patient on a very small dose of beta-blockers and maximize with small dose of nitrates like metoprolol 25 b.i.d. and Imdur 30 mg daily. Aggressive medical management as per guidelines because of the recent stress test and if she continues to be symptomatic ____ in spite of a negative stress test, then we have no other choice other than proceeding with a heart catheterization as per guidelines and appropriate use criteria and we will follow up. ANA BABIN MD CM:CONSTR:REPORT OF CONSULTATION 0707 03/01/17 1110 interface
[2017-02-26 23:55] VITALS: BP 109/61
[2017-02-27] VITALS (7 sets, daily range): BP systolic 107–148; BP diastolic 70–96
[2017-02-27 00:26] LABS: BASO % 0.2 % (0.0-1.0); EOS # 0.1 10*3/uL (0.0-0.4); EOS % 1.6 % (1.0-4.0); HEMATOCRIT 35.1 % (37.0-47.0); HEMOGLOBIN 11.6 g/dl (12.0-16.0); LYMPH # 3.3 10*3/uL (1.3-4.4); MEAN CELL VOLUME 86.9 fl (81.0-99.0); MEAN CORPUSCULAR HGB 28.7 pg (27.0-31.0); MEAN PLATELET VOLUME 9.2 fl (9.6-12.3); MONO # 0.6 10*3/uL (0.1-1.0); MONO % 6.5 % (3.0-9.0); NEUT # 4.9 10*3/uL (2.3-7.9); NEUT % 54.4 % (47.0-73.0); PLATELET COUNT AUTOMATED 298 10*3/uL (130-400); RED BLOOD COUNT 4.04 10*6/uL (4.10-5.10); RED CELL DISTRI WIDTH 13.6 % (0-14.5); WHITE BLOOD COUNT 8.9 10*3/uL (4.8-10.8)
[2017-02-27 00:35] LABS: PROTHROMBIN TIME 10.4 SECONDS (9.0-12.4)
[2017-02-27 00:38] LABS: ALKALINE PHOSPHATASE 69 U/L (45-117); BILIRUBIN, TOTAL 0.2 mg/dl (0.2-1.0); BUN 8 mg/dl (7-24); CARBON DIOXIDE 29 mmol/L (21-32); CHLORIDE 105 mmol/L (98-107); EST GLOM FILT AFRICAN AMERICAN > 60 ml/min; GLUCOSE 115 mg/dL (65-99); MAGNESIUM 1.7 mg/dL (1.5-2.1); POTASSIUM 3.6 mmol/L (3.5-5.1); SGOT/AST 16 IU/L (3-35); SGPT/ALT 20 U/L (12-78); SODIUM 140 mmol/L (136-145); TOTAL PROTEIN 6.9 gm/dL (6.4-8.2)
[2017-02-27 00:39] LABS: TROPONIN I < 0.015 ng/ml (<0.045)
[2017-02-27] MEDS ORDERED: KLONOPIN1 M1 PO (02:00)
[2017-02-27 06:28] LABS: BASO % 0.2 % (0.0-1.0); EOS # 0.2 10*3/uL (0.0-0.4); EOS % 2.3 % (1.0-4.0); HEMATOCRIT 35.8 % (37.0-47.0); HEMOGLOBIN 11.4 g/dl (12.0-16.0); LYMPH # 2.4 10*3/uL (1.3-4.4); LYMPH % 37.4 % (27.0-41.0); MEAN CELL VOLUME 87.3 fl (81.0-99.0); MEAN CORPUSCULAR HGB 27.8 pg (27.0-31.0); MEAN CORPUSCULAR HGB CONC 31.8 g/dl (33.0-37.0); MEAN PLATELET VOLUME 9.5 fl (9.6-12.3); MONO # 0.4 10*3/uL (0.1-1.0); MONO % 5.6 % (3.0-9.0); NEUT # 3.5 10*3/uL (2.3-7.9); PLATELET COUNT AUTOMATED 264 10*3/uL (130-400); RED CELL DISTRI WIDTH 13.6 % (0-14.5); WHITE BLOOD COUNT 6.4 10*3/uL (4.8-10.8)
[2017-02-27 06:54] LABS: ALBUMIN 2.9 gm/dl (3.1-4.5); BILIRUBIN, TOTAL 0.2 mg/dl (0.2-1.0); BUN 7 mg/dl (7-24); CARBON DIOXIDE 26 mmol/L (21-32); CHLORIDE 109 mmol/L (98-107); EST GLOM FILT AFRICAN AMERICAN > 60 ml/min; GLUCOSE 101 mg/dL (65-99); MAGNESIUM 2.1 mg/dL (1.5-2.1); PHOSPHOROUS 3.1 mg/dL (2.5-4.9); POTASSIUM 3.2 mmol/L (3.5-5.1); SGOT/AST 16 IU/L (3-35); SGPT/ALT 18 U/L (12-78); SODIUM 142 mmol/L (136-145); TOTAL PROTEIN 6.7 gm/dL (6.4-8.2)
[2017-02-27 06:55] LABS: PROTHROMBIN TIME 10.4 SECONDS (9.0-12.4)
[2017-02-27 07:03] LABS: ALKALINE PHOSPHATASE 63 U/L (45-117)
[2017-02-27 16:59] LABS: BILIRUBIN NEGATIVE (NEGATIVE); BLOOD NEGATIVE (NEGATIVE); CLARITY SL CLOUDY (CLEAR); COLOR YELLOW (YELLOW); GLUCOSE NEGATIVE (NEGATIVE); KETONE NEGATIVE (NEGATIVE); LEUKO ESTERASE NEGATIVE (NEGATIVE); NITRITE NEGATIVE (NEGATIVE); PH 6.5 (5.0-9.0); PROTEIN NEGATIVE (NEGATIVE); SPECIFIC GRAVITY <= 1.005 (1.005-1.030); UROBILINOGEN 0.2 E.U./dl (0.2-1.0)
[2017-02-27 17:08] LABS: BACTERIA 1+; RBC 0-2 rbc/hpf (0-2)
[2017-02-28] VITALS: BP 147/64
[2017-02-28 04:00] VITALS: BP 163/86
[2017-02-28 06:49] LABS: BASO % 0.3 % (0.0-1.0); EOS # 0.2 10*3/uL (0.0-0.4); EOS % 2.5 % (1.0-4.0); HEMOGLOBIN 11.8 g/dl (12.0-16.0); LYMPH # 2.3 10*3/uL (1.3-4.4); LYMPH % 30.2 % (27.0-41.0); MEAN CELL VOLUME 86.7 fl (81.0-99.0); MEAN CORPUSCULAR HGB 27.6 pg (27.0-31.0); MEAN CORPUSCULAR HGB CONC 31.9 g/dl (33.0-37.0); MEAN PLATELET VOLUME 9.5 fl (9.6-12.3); MONO # 0.4 10*3/uL (0.1-1.0); MONO % 5.4 % (3.0-9.0); NEUT # 4.7 10*3/uL (2.3-7.9); NEUT % 61.1 % (47.0-73.0); PLATELET COUNT AUTOMATED 271 10*3/uL (130-400); RED BLOOD COUNT 4.27 10*6/uL (4.10-5.10); RED CELL DISTRI WIDTH 13.5 % (0-14.5); WHITE BLOOD COUNT 7.7 10*3/uL (4.8-10.8)
[2017-02-28 07:06] LABS: BUN 8 mg/dl (7-24); CARBON DIOXIDE 31 mmol/L (21-32); CHLORIDE 107 mmol/L (98-107); EST GLOM FILT AFRICAN AMERICAN > 60 ml/min; GLUCOSE 92 mg/dL (65-99); SODIUM 142 mmol/L (136-145)
[2017-02-28 08:00] VITALS: BP 154/86
[2017-02-28 12:00] VITALS: BP 126/83
[2017-02-28] MEDS ORDERED: IMDUR SA30 MG PO (12:04)
== END 2017-02-28 13:15 | disposition home or self-care (01) | DRG 391 ==
LOC: ED 23:55 → 5E 02-27 02:01 → EDHOLD 02-27 02:01 → 4E 02-27 02:09 → 5E 02-27 02:35
PROVIDERS: Emergency Medicine Emergency Medical Services; Hospitalist; Internal Medicine
DX: K21.9 Gastro-esophageal reflux disease without esophagitis (principal); J18.9 Pneumonia, unspecified organism; E11.8 Type 2 diabetes mellitus with unspecified complications; K31.84 Gastroparesis; E88.81 Metabolic syndrome and other insulin resistance; E44.1 Mild protein-calorie malnutrition; E11.43 Type 2 diabetes mellitus with diabetic autonomic (poly)neuropathy; Z68.42 Body mass index [BMI] 45.0-49.9, adult; E66.01 Morbid (severe) obesity due to excess calories; I25.10 Atherosclerotic heart disease of native coronary artery without angina pectoris; I10 Essential (primary) hypertension; E78.00 Pure hypercholesterolemia, unspecified; E53.8 Deficiency of other specified B group vitamins; H50.9 Unspecified strabismus; R07.89 Other chest pain; Z90.710 Acquired absence of both cervix and uterus; Z90.49 Acquired absence of other specified parts of digestive tract; Z79.4 Long term (current) use of insulin; Z98.61 Coronary angioplasty status; Z87.891 Personal history of nicotine dependence; Z83.3 Family history of diabetes mellitus; Z82.49 Family history of ischemic heart disease and other diseases of the circulatory system; Z82.3 Family history of stroke

== ENCOUNTER 2017-03-05 10:17 | Emergency (ER) | payer OTHER ==
[~2017-03-05] VITALS: Wt 108.9 kg
[~2017-03-05 10:17] MED LIST changes: +IMDUR SA30 MG PO; +KLONOPIN1 M1 PO
[2017-03-05 10:21] VITALS: BP 154/96
[2017-03-05] MEDS ORDERED: LEVOFLOXACIN500 MG PO (11:22)
[2017-03-05] MEDS ORDERED: Fioricet 325 MG1 TAB PO (11:23)
== END 2017-03-05 11:32 | disposition home or self-care (01) ==
LOC: ED 10:17
DX: L03.032 Cellulitis of left toe (principal); K21.9 Gastro-esophageal reflux disease without esophagitis; I10 Essential (primary) hypertension; E11.9 Type 2 diabetes mellitus without complications; I25.10 Atherosclerotic heart disease of native coronary artery without angina pectoris; E78.00 Pure hypercholesterolemia, unspecified; Z79.82 Long term (current) use of aspirin; Z79.899 Other long term (current) drug therapy; Z87.891 Personal history of nicotine dependence

== ENCOUNTER 2017-03-29 11:48 | Emergency (ER) | payer OTHER ==
[~2017-03-29] VITALS: Ht 157.4 cm; Wt 108.9 kg
--- NOTE | ~2017-03-29 | EKG ---
[place], [place] ELECTROCARDIOGRAM REPORT NAME: MELISSA ROBBINS UNIT #: [id number] ROOM: DOCTOR: PAMELA DOLAN BIRTHDATE: [birth year] DOS: 03/29/2017 TIME: 1336 hours. Normal sinus rhythm at 76 beats per minute. The tracing is within normal limits. No previous tracing is available for comparison. Pamela Dolan NP CM:EKGRPT:ELECTROCARDIOGRAM REPORT [id number] 2155 PAMELA DOLAN
[~2017-03-29 11:48] MED LIST changes: +Fioricet 325 MG1 TAB PO; +LEVOFLOXACIN500 MG PO
[2017-03-29 12:26] LABS: BASO % 0.3 % (0.0-1.0); EOS # 0.1 10*3/uL (0.0-0.4); EOS % 1.5 % (1.0-4.0); HEMATOCRIT 39.2 % (37.0-47.0); HEMOGLOBIN 12.7 g/dl (12.0-16.0); LYMPH # 1.8 10*3/uL (1.3-4.4); LYMPH % 28.4 % (27.0-41.0); MEAN CELL VOLUME 85.8 fl (81.0-99.0); MEAN CORPUSCULAR HGB 27.8 pg (27.0-31.0); MEAN CORPUSCULAR HGB CONC 32.4 g/dl (33.0-37.0); MEAN PLATELET VOLUME 9.7 fl (9.6-12.3); MONO # 0.3 10*3/uL (0.1-1.0); MONO % 5.3 % (3.0-9.0); NEUT % 64.2 % (47.0-73.0); PLATELET COUNT AUTOMATED 268 10*3/uL (130-400); RED BLOOD COUNT 4.57 10*6/uL (4.10-5.10); RED CELL DISTRI WIDTH 14.2 % (0-14.5); WHITE BLOOD COUNT 6.2 10*3/uL (4.8-10.8)
[2017-03-29 13:49] LABS: CKMB 1.1 ng/ml (0.5-3.6); CPK 69 U/L (26-192); LDH 194 U/L (84-246); TROPONIN I < 0.015 ng/ml (<0.045)
[2017-03-29 13:58] LABS: BUN 11 mg/dl (7-24); CHLORIDE 106 mmol/L (98-107); CREATININE 0.68 mg/dL (0.55-1.02); POTASSIUM 3.2 mmol/L (3.5-5.1); SODIUM 144 mmol/L (136-145)
[2017-03-29 13:59] LABS: ALBUMIN 3.1 gm/dl (3.1-4.5); ALKALINE PHOSPHATASE 72 U/L (45-117); SGOT/AST 16 IU/L (3-35); SGPT/ALT 20 U/L (12-78); TOTAL PROTEIN 7.5 gm/dL (6.4-8.2)
[2017-03-29 14:07] VITALS: BP 134/79
[2017-03-29] MEDS ORDERED: NORCO 5-325 TA1 EACH PO (14:49)
[2017-03-29] MEDS ORDERED: CEPHALEXIN500 M1 PO (14:49)
== END 2017-03-29 15:25 | disposition home or self-care (01) ==
LOC: ED 11:48
PROVIDERS: Physician Assistant
DX: M79.604 Pain in right leg (principal); Z79.899 Other long term (current) drug therapy; Z79.82 Long term (current) use of aspirin; Z87.891 Personal history of nicotine dependence

== ENCOUNTER 2017-05-09 13:20 | Inpatient (IN) | payer OTHER ==
[~2017-05-09] VITALS: Ht 157.4 cm; Wt 108.5 kg
--- NOTE | ~2017-05-09 | CON ---
[place], [place] REPORT OF CONSULTATION NAME: MELISSA ROBBINS UNIT #: [id number] ROOM: 412 DOCTOR: ANA BABIN MD BIRTHDATE: [birth year] DOS: HISTORY OF PRESENT ILLNESS: A 47-year-old female apparently with significant left-sided chest discomfort and coronary artery disease, stent placement in 2014. Re-admitted with chest discomfort. The patient had a stress test in November, which was completely normal. Her echo showed an ejection fraction well preserved. EKG showed no acute abnormality. The patient was started on nitroglycerin and her pain is a lot better. Right now, she is chest pain free, but she states that she is having intermittent chest pain on and off for the last 6 months and recently getting worse. She is already on aspirin and Plavix. PAST MEDICAL HISTORY: Coronary artery disease, diabetes, hypertension, hyperlipidemia, history of pericarditis. PAST SURGICAL HISTORY: Hysterectomy, stent placement, cholecystectomy. SOCIAL HISTORY: Nonalcoholic nondrinker, former smoker. FAMILY HISTORY: Positive for coronary artery disease. ALLERGIES: None. HOME MEDICATIONS: Aspirin, Lasix, metformin, potassium and sucralfate. REVIEW OF SYSTEMS: CONSTITUTIONAL: No fever, no chills. HEENT: No visual disturbances or hearing problems. CARDIOVASCULAR: Does have chest discomfort. RESPIRATORY: No nausea, no vomiting. GASTROINTESTINAL: No nausea, no vomiting. NEUROLOGIC: No syncope. ENDOCRINE: Intact. PHYSICAL EXAMINATION: VITAL SIGNS: Blood pressure is 130/80. HEENT: Unremarkable. NECK: Supple, no JVD. LUNGS: Clear to auscultation and percussion. HEART: Heart sounds are regular. No murmur, no rub. ABDOMEN: Soft, nontender. NEUROLOGICAL: Stable. LABORATORY DATA: Electrolytes are normal. Creatinine is normal. INR is normal, hemoglobin 12.4, hematocrit 37.4. EKG sinus rhythm with nonspecific ST-T changes. IMPRESSION: The patient with known history of severe coronary artery stent placement with having recurrent angina, hypertension, hyperlipidemia. RECOMMENDATIONS: Maximize the medicines. Add nitrates to the current regimen. [place], [place] REPORT OF CONSULTATION NAME: MELISSA ROBBINS UNIT #: [id number] ROOM: 412 DOCTOR: ANA BABIN MD BIRTHDATE: [birth year] The patient is also a diabetic with metabolic syndrome. Because of her persistent chest discomfort on maximum medications and the patient continues to be symptomatic, we will schedule her for a heart catheterization intervention. Discussed with the patient in detail risks and benefits, she wants to do it as an outpatient. ANA BABIN MD CM:CONSTR:REPORT OF CONSULTATION 1036 05/10/17 2017 interface
[~2017-05-09 13:20] MED LIST changes: +NORCO 5-325 TA1 EACH PO
[2017-05-09 13:32] VITALS: BP 123/65
[2017-05-09 13:56] LABS: BASO % 0.3 % (0.0-1.0); EOS # 0.1 10*3/uL (0.0-0.4); EOS % 1.4 % (1.0-4.0); HEMATOCRIT 37.4 % (37.0-47.0); HEMOGLOBIN 12.4 g/dl (12.0-16.0); LYMPH # 2.3 10*3/uL (1.3-4.4); LYMPH % 29.4 % (27.0-41.0); MEAN CELL VOLUME 84.4 fl (81.0-99.0); MEAN CORPUSCULAR HGB CONC 33.2 g/dl (33.0-37.0); MEAN PLATELET VOLUME 9.8 fl (9.6-12.3); MONO # 0.4 10*3/uL (0.1-1.0); NEUT # 4.9 10*3/uL (2.3-7.9); NEUT % 63.5 % (47.0-73.0); PLATELET COUNT AUTOMATED 290 10*3/uL (130-400); RED BLOOD COUNT 4.43 10*6/uL (4.10-5.10); RED CELL DISTRI WIDTH 13.3 % (0-14.5); WHITE BLOOD COUNT 7.8 10*3/uL (4.8-10.8)
--- NOTE | 2017-05-09 13:57 | NUR ---
ATTEMPTED TO GIVE THE PATIENT ASA. PATIENT STATES EMS GAVE HER 4 IN [facility] ALONG WITH NITRO X 2 WITH NO RELIEF OFD HER PAIN. MADE AWARE. ROBERT PRADO RN
[2017-05-09 14:16] LABS: ALBUMIN 2.9 gm/dl (3.1-4.5); ALKALINE PHOSPHATASE 63 U/L (45-117); BUN 8 mg/dl (7-24); CHLORIDE 110 mmol/L (98-107); CREATININE 0.85 mg/dL (0.55-1.02); MAGNESIUM 2.1 mg/dL (1.5-2.1); POTASSIUM 3.5 mmol/L (3.5-5.1); SGOT/AST 16 IU/L (3-35); SGPT/ALT 21 U/L (12-78); SODIUM 143 mmol/L (136-145); TOTAL PROTEIN 7.1 gm/dL (6.4-8.2)
[2017-05-09 14:18] LABS: TROPONIN I < 0.015 ng/ml (<0.045)
[2017-05-09 14:19] LABS: ACT PARTIAL THROMBO TIME 25.1 SECONDS (20.8-31.5)
[2017-05-09 15:02] VITALS: BP 133/8
--- NOTE | 2017-05-09 15:40 | NUR ---
A 47, admitted to , under the services of MANUEL Diaz DO with a diagnosis of CHEST PAIN. Chief complaint is MIDSTERNAL CHEST PAIN RADIATING TO LEFT ARM\. Patient arrived via bed from ER. Monitor applied. Initial assessment completed. Vital signs taken and recorded. MANUEL DIAZ DO notified of admission to the unit. Orders received. See assessment for past medical history, medications and allergies. Patient and/or family oriented to unit. [facility] visitation policy reviewed. Clothing/patient valuable form completed. LISSA DE LA VEGA
[2017-05-09 16:00] VITALS: BP 136/74
[2017-05-09] MEDS ORDERED: CLONAZEPAM1 MG PO (16:46)
[2017-05-09] MEDS ORDERED: CARAFATE1 GM PO (16:47)
--- NOTE | 2017-05-09 17:33 | NUR ---
PAGED AT THIS TIME FOR CONSULT
--- NOTE | 2017-05-09 17:37 | NUR ---
SPOKE WITH REGARDING CONSULT ,HE WILL SEE HER IN THE AM
[2017-05-09 20:00] VITALS: BP 147/86
--- NOTE | 2017-05-09 23:00 | NUR ---
PATIENT LYING IN BED, DENIES ANY CHEST PAIN AT THIS TIME. PATIENT STATED THE MORPHINE WAS EFFECTIVE FOR PAIN. WILL CONTINUE TO MONITOR. PATIENT LEFT WITH CALL LIGHT IN REACH.
--- NOTE | 2017-05-09 23:00 | NUR ---
PT STATES THAT PRN MORPHINE WAS EFFECTIVE FOR PAIN RELIEF.
[2017-05-10] VITALS: BP 143/81
--- NOTE | 2017-05-10 00:23 | NUR ---
24 HR chart check completed.
--- NOTE | 2017-05-10 01:30 | NUR ---
PATIENT HAS COMPLAINT OF CHEST PAIN, RATES 9/10. MORPHINE GIVEN. WILL MONITOR AND REASSESS.
[2017-05-10 05:57] LABS: BASO % 0.4 % (0.0-1.0); EOS # 0.2 10*3/uL (0.0-0.4); EOS % 2.2 % (1.0-4.0); HEMATOCRIT 36.1 % (37.0-47.0); HEMOGLOBIN 11.7 g/dl (12.0-16.0); LYMPH # 2.8 10*3/uL (1.3-4.4); LYMPH % 33.9 % (27.0-41.0); MEAN CELL VOLUME 85.7 fl (81.0-99.0); MEAN CORPUSCULAR HGB 27.8 pg (27.0-31.0); MEAN CORPUSCULAR HGB CONC 32.4 g/dl (33.0-37.0); MEAN PLATELET VOLUME 10.1 fl (9.6-12.3); MONO # 0.4 10*3/uL (0.1-1.0); MONO % 4.9 % (3.0-9.0); NEUT # 4.8 10*3/uL (2.3-7.9); NEUT % 58.2 % (47.0-73.0); PLATELET COUNT AUTOMATED 281 10*3/uL (130-400); RED BLOOD COUNT 4.21 10*6/uL (4.10-5.10); RED CELL DISTRI WIDTH 13.6 % (0-14.5); WHITE BLOOD COUNT 8.2 10*3/uL (4.8-10.8)
[2017-05-10 06:02] LABS: ALBUMIN 2.9 gm/dl (3.1-4.5); BUN 13 mg/dl (7-24); CHLORIDE 107 mmol/L (98-107); CHOLESTEROL 159 mg/dL (<200); CREATININE 0.65 mg/dL (0.55-1.02); MAGNESIUM 2.3 mg/dL (1.5-2.1); PHOSPHOROUS 4.6 mg/dL (2.5-4.9); POTASSIUM 3.8 mmol/L (3.5-5.1); SGOT/AST 16 IU/L (3-35); SGPT/ALT 20 U/L (12-78); SODIUM 143 mmol/L (136-145); TOTAL PROTEIN 6.8 gm/dL (6.4-8.2); TRIGLYCERIDES 347 mg/dl (<150); VLDL CHOLESTEROL 69 mg/dL (6-40)
[2017-05-10 06:03] LABS: ALKALINE PHOSPHATASE 58 U/L (45-117); HDL CHOLESTEROL 25 mg/dl (40-60); LDL CHOLESTEROL 65 mg/dL (9-159)
[2017-05-10 07:14] LABS: VITAMIN D, 25-HYDROXY 15.2 ng/mL (30-100)
[2017-05-10 08:00] VITALS: BP 110/78
--- NOTE | 2017-05-10 09:00 | NUR ---
Marketing Professional in to talk to patient. Patient states lives at home with alone. There are no steps in the home. Physician: delia [facility]: [facility] Home health services: none Patient's level of ADLs: INDEPENDENT Patient has working utilities: all working DME: none Follow-up physician's appointment after d/c: will be made by hospitalist nurse director upon discharge Does patient want to access PORTAL?: no Discharge plan discussed with patient, patient lives at home alone, is independent in adls and ambulation, patient states she will return home and denies any home needs. ERICA EDWARDS
[2017-05-10] MEDS ORDERED: VITAMIN D32000 UNIT PO (10:36)
[2017-05-10] MEDS ORDERED: IMDUR SA30 MG PO (10:36)
[2017-05-10] MEDS ORDERED: NATURE'S BLEND F1 MG PO (10:36)
--- NOTE | 2017-05-10 11:18 | NUR ---
Discharge instructions reviewed with patient/family. Patient receptive and verbalizes understanding. Follow-up care arranged. Written instructions given to patient/family. FIFI ROMERO
== END 2017-05-10 11:18 | disposition home or self-care (01) | DRG 303 ==
LOC: ED 13:20 → EDHOLD 14:35 → 4E 14:35
PROVIDERS: Internal Medicine; Student in an Organized Health Care Education/Training Program; ADMIT Internal Medicine
DX: I25.110 Atherosclerotic heart disease of native coronary artery with unstable angina pectoris (principal); E88.81 Metabolic syndrome and other insulin resistance; E44.0 Moderate protein-calorie malnutrition; E66.01 Morbid (severe) obesity due to excess calories; K31.84 Gastroparesis; E11.65 Type 2 diabetes mellitus with hyperglycemia; Z68.41 Body mass index [BMI] 40.0-44.9, adult; R10.31 Right lower quadrant pain; I10 Essential (primary) hypertension; K21.9 Gastro-esophageal reflux disease without esophagitis; E78.00 Pure hypercholesterolemia, unspecified; Z90.49 Acquired absence of other specified parts of digestive tract; Z90.710 Acquired absence of both cervix and uterus; Z95.5 Presence of coronary angioplasty implant and graft; Z87.891 Personal history of nicotine dependence; Z83.3 Family history of diabetes mellitus; Z82.49 Family history of ischemic heart disease and other diseases of the circulatory system; Z82.3 Family history of stroke; Z79.82 Long term (current) use of aspirin; Z79.84 Long term (current) use of oral hypoglycemic drugs; Z79.899 Other long term (current) drug therapy

== ENCOUNTER 2017-06-13 13:59 | Inpatient (IN) | payer OTHER ==
[~2017-06-13] VITALS: Ht 157.5 cm; Wt 112.1 kg
[2017-06-13] VITALS (7 sets, daily range): BP systolic 120–148; BP diastolic 54–96
[~2017-06-13 13:59] MED LIST changes: +CARAFATE1 GM PO; +CLONAZEPAM1 MG PO; +VITAMIN D32000 UNIT PO
[2017-06-13 14:19] LABS: BASO % 0.4 % (0.0-1.0); EOS # 0.1 10*3/uL (0.0-0.4); EOS % 1.2 % (1.0-4.0); HEMATOCRIT 41.6 % (37.0-47.0); HEMOGLOBIN 13.7 g/dl (12.0-16.0); LYMPH # 2.7 10*3/uL (1.3-4.4); LYMPH % 24.6 % (27.0-41.0); MEAN CELL VOLUME 84.9 fl (81.0-99.0); MEAN CORPUSCULAR HGB CONC 32.9 g/dl (33.0-37.0); MEAN PLATELET VOLUME 9.5 fl (9.6-12.3); MONO # 0.7 10*3/uL (0.1-1.0); MONO % 6.2 % (3.0-9.0); NEUT # 7.4 10*3/uL (2.3-7.9); NEUT % 66.8 % (47.0-73.0); PLATELET COUNT AUTOMATED 352 10*3/uL (130-400); RED CELL DISTRI WIDTH 13.8 % (0-14.5); WHITE BLOOD COUNT 11.1 10*3/uL (4.8-10.8)
[2017-06-13 14:27] LABS: ACT PARTIAL THROMBO TIME 24.2 SECONDS (20.8-31.5)
[2017-06-13 14:36] LABS: ALBUMIN 3.5 gm/dl (3.1-4.5); ALKALINE PHOSPHATASE 84 U/L (45-117); BUN 8 mg/dl (7-24); CHLORIDE 108 mmol/L (98-107); POTASSIUM 3.8 mmol/L (3.5-5.1); SGOT/AST 19 IU/L (3-35); SGPT/ALT 22 U/L (12-78); SODIUM 142 mmol/L (136-145); TOTAL PROTEIN 7.8 gm/dL (6.4-8.2)
[2017-06-13 14:38] LABS: TROPONIN I < 0.015 ng/ml (<0.045)
[2017-06-13 16:00] LABS: BILIRUBIN NEGATIVE (NEGATIVE); BLOOD NEGATIVE (NEGATIVE); CLARITY SL CLOUDY (CLEAR); COLOR YELLOW (YELLOW); GLUCOSE NEGATIVE (NEGATIVE); KETONE TRACE (NEGATIVE); LEUKO ESTERASE NEGATIVE (NEGATIVE); NITRITE NEGATIVE (NEGATIVE); SPECIFIC GRAVITY 1.015 (1.005-1.030)
[2017-06-13 16:15] LABS: BACTERIA TRACE; EPITHELIAL CELLS 21-30; WBC 0-2 wbc/hpf (0-5)
--- NOTE | 2017-06-13 19:20 | NUR ---
A 47, admitted to , under the services of JENNA Cross DO with a diagnosis of CHEST PAIN/ABDOMINAL PAIN. Chief complaint is CHEST PAIN. Patient arrived via ambulatory from ER. Monitor applied. Initial assessment completed. Vital signs taken and recorded. JENNA CROSS DO notified of admission to the unit. Orders received. See assessment for past medical history, medications and allergies. Patient and/or family oriented to unit. visitation policy reviewed. Clothing/patient valuable form completed. RADHA BELL
--- NOTE | 2017-06-13 19:30 | NUR ---
ASSUMED CARE OF PT AT THIS TIME, RESPS EASY AND NONLABORED WITH NO S/S OF DISTRESS CALL LIGHT WITH IN REACH
[2017-06-13] MEDS ORDERED: METFORMIN500 MG PO (19:32)
--- NOTE | 2017-06-13 20:18 | NUR ---
PT C//O LLQ PAIN, RATING PAIN 02/23, REQUESTED PAIN MEDICATION ADMINSISTERED NORCO PO PRN PER ORDERS, CALL LIGHT WITH IN REACH
--- NOTE | 2017-06-13 21:38 | NUR ---
DR. DAHL NOTIFIED OF CONSULT, PT TO REMAIN NPO
--- NOTE | 2017-06-13 22:51 | NUR ---
GENET INEFFECTIVE, REQUESTED MORPHINE ADMISNITERED IVP PRN PER ORDER, WILL CONTINUE TO MONITOR, CALL LIGHT WITH IN REACH
[2017-06-14] VITALS: BP 138/99
--- NOTE | 2017-06-14 03:08 | NUR ---
RESTING IN BED WITH EYES CLOSED RESPS EASY AND NONLABORED WITH NO S/S OF DISTRESS CALL LIGHT WTIH IN REACH
--- NOTE | 2017-06-14 04:59 | NUR ---
PT C/O RLQ PAIN, REQUESTED AND ADMINSITERED MORPHINE IVP PRN PER ORDERS, WILL MONITOR EFFECTS, CALL LIGHT WITH IN REACH
--- NOTE | 2017-06-14 06:09 | NUR ---
PT RESTING IN BED AT THIS TIME, REPORTS DECREASED PAIN LEVEL, RESPS EASY AND NONLABORED WITH NO S/S OF DISTRESS CALL LIGHT WITH IN REACH
[2017-06-14 07:21] LABS: BASO % 0.2 % (0.0-1.0); EOS # 0.1 10*3/uL (0.0-0.4); HEMATOCRIT 38.7 % (37.0-47.0); HEMOGLOBIN 12.1 g/dl (12.0-16.0); LYMPH # 2.2 10*3/uL (1.3-4.4); LYMPH % 35.1 % (27.0-41.0); MEAN CELL VOLUME 87.8 fl (81.0-99.0); MEAN CORPUSCULAR HGB 27.4 pg (27.0-31.0); MEAN CORPUSCULAR HGB CONC 31.3 g/dl (33.0-37.0); MEAN PLATELET VOLUME 9.5 fl (9.6-12.3); MONO # 0.4 10*3/uL (0.1-1.0); MONO % 5.5 % (3.0-9.0); NEUT # 3.6 10*3/uL (2.3-7.9); NEUT % 56.6 % (47.0-73.0); PLATELET COUNT AUTOMATED 256 10*3/uL (130-400); RED BLOOD COUNT 4.41 10*6/uL (4.10-5.10); RED CELL DISTRI WIDTH 13.9 % (0-14.5); WHITE BLOOD COUNT 6.4 10*3/uL (4.8-10.8)
[2017-06-14 07:53] LABS: BUN 8 mg/dl (7-24); CHLORIDE 112 mmol/L (98-107); CHOLESTEROL 185 mg/dL (<200); CREATININE 0.64 mg/dL (0.55-1.02); POTASSIUM 3.6 mmol/L (3.5-5.1); SODIUM 145 mmol/L (136-145)
[2017-06-14 07:57] LABS: ACT PARTIAL THROMBO TIME 26.2 SECONDS (20.8-31.5)
[2017-06-14 08:00] VITALS: BP 145/92
[2017-06-14 08:02] LABS: HDL CHOLESTEROL 30 mg/dl (40-60); LDL CHOLESTEROL 104 mg/dL (9-159); TRIGLYCERIDES 254 mg/dl (<150); VLDL CHOLESTEROL 51 mg/dL (6-40)
[2017-06-14 08:30] LABS: VITAMIN D, 25-HYDROXY 20.7 ng/mL (30-100)
--- NOTE | 2017-06-14 08:30 | NUR ---
Bench Assembly Inspector in to talk to patient. Patient states lives at HOME with A FRIEND. There are MANY STEPS steps in the home. Physician: DR VILLEGAS Pharmacy: [facility] Home health services: NONE Patient's level of ADLs: INDEPENDENT Patient has working utilities: YES DME: NONE Follow-up physician's appointment after d/c: MÓNICA BE MADE PRIOR TO DC Does patient want to access PORTAL?: Discharge plan HOME. TODD PARK
--- NOTE | 2017-06-14 09:30 | NUR ---
PRN PAIN MED GIVEN FOR PT REPORT 8/10 RLQ PAIN.
--- NOTE | 2017-06-14 10:30 | NUR ---
PRN PAIN MED EFFECTIVE, PT REPORTS PAIN 5/10 TO RLQ.
--- NOTE | 2017-06-14 10:58 | NUR ---
PHONE CALL TO DR DAHL ABOUT PT BEING ON MULTIPLE BLOOD THINNERS. HE STATED TO HOLD AT THIS TIME.
[2017-06-14 12:00] VITALS: BP 129/80
--- NOTE | 2017-06-14 13:00 | NUR ---
PRN PAIN MED GIVEN FOR 7/10 PAIN TO RLQ.
--- NOTE | 2017-06-14 14:00 | NUR ---
PRN PAIN MED MINIMALLY EFFECTIVE, PT REPORTS HER PAIN 5/10.
--- NOTE | 2017-06-14 16:10 | NUR ---
Discharge instructions reviewed with patient/family. Patient receptive and verbalizes understanding. Follow-up care arranged. Written instructions given to patient/family. DAVID RYDER
== END 2017-06-14 16:35 | disposition home or self-care (01) | DRG 871 ==
LOC: ED 13:59 → EDHOLD 18:23 → 4E 18:23
PROVIDERS: Emergency Medicine; Internal Medicine; ADMIT Emergency Medicine
DX: A41.9 Sepsis, unspecified organism (principal); K35.3 Acute appendicitis with localized peritonitis; E66.01 Morbid (severe) obesity due to excess calories; E88.81 Metabolic syndrome and other insulin resistance; E87.8 Other disorders of electrolyte and fluid balance, not elsewhere classified; E11.65 Type 2 diabetes mellitus with hyperglycemia; I24.9 Acute ischemic heart disease, unspecified; Z68.41 Body mass index [BMI] 40.0-44.9, adult; F41.9 Anxiety disorder, unspecified; K31.84 Gastroparesis; E11.43 Type 2 diabetes mellitus with diabetic autonomic (poly)neuropathy; I10 Essential (primary) hypertension; E78.00 Pure hypercholesterolemia, unspecified; I25.118 Atherosclerotic heart disease of native coronary artery with other forms of angina pectoris; A08.4 Viral intestinal infection, unspecified; R07.89 Other chest pain; E55.9 Vitamin D deficiency, unspecified; X58.XXXA Exposure to other specified factors, initial encounter; K21.9 Gastro-esophageal reflux disease without esophagitis; S29.011A Strain of muscle and tendon of front wall of thorax, initial encounter; Z79.1 Long term (current) use of non-steroidal anti-inflammatories (NSAID); Z79.899 Other long term (current) drug therapy; Z90.710 Acquired absence of both cervix and uterus; Z95.5 Presence of coronary angioplasty implant and graft; Z90.49 Acquired absence of other specified parts of digestive tract; Z98.51 Tubal ligation status; Z87.891 Personal history of nicotine dependence; Z83.3 Family history of diabetes mellitus; Z82.49 Family history of ischemic heart disease and other diseases of the circulatory system; Z82.3 Family history of stroke; Z90.721 Acquired absence of ovaries, unilateral; Z79.82 Long term (current) use of aspirin; Z79.84 Long term (current) use of oral hypoglycemic drugs; Y93.89 Activity, other specified; Y92.89 Other specified places as the place of occurrence of the external cause; Y99.8 Other external cause status

== ENCOUNTER 2017-07-20 00:23 | Inpatient (IN) | payer OTHER ==
[~2017-07-20] VITALS: Ht 157.4 cm; Wt 108.2 kg
[2017-07-20] VITALS (13 sets, daily range): BP systolic 102–155; BP diastolic 68–91
--- NOTE | ~2017-07-20 | PR ---
[place], [place] PROGRESS NOTE [id number] UNIT #: [id number] ROOM: 415 DOCTOR: ANA BABIN MD BIRTHDATE: [birth year] DOS: 07/21/2017 SUBJECTIVE: A 24-hour events noted. Discussed with the nursing staff. Dr. Redding saw this patient on behalf of me yesterday. Cardiac enzymes have been negative. I had done a heart catheterization on her showed the patency of the previously placed stents and the recent catheterization was completely normal. Hemodynamically, the patient is stable. Denies any chest discomfort. NECK: Supple, no JVD. LUNGS: Clear. HEART: Sounds are regular. ABDOMEN: Soft, nontender. NEUROLOGIC: Stable. REVIEW OF SYSTEMS: A 6-8 systems reviewed and negative. Lab work reviewed. Cardiac enzymes have been negative. IMPRESSION: The patient with hypertension with atypical chest discomfort with a recent heart catheterization of patent coronary arteries. RECOMMENDATIONS: Probable noncardiac chest pain. Increase activity and will follow up. ANA BABIN MD CM:PNTRANS [id number] ANA BABIN MD 07/21/17 0744 interface
--- NOTE | ~2017-07-20 | CON ---
[place], [place] REPORT OF CONSULTATION NAME: [facility] ROBBINS [id number] UNIT #: [id number] ROOM: 415 DOCTOR: FERN VILLEGAS MD BIRTHDATE: [birth year] DOS: 07/20/2017 HISTORY OF PRESENT ILLNESS: This is a 47-year-old -[place] woman with a history of coronary artery disease. She had stent deployed in the left anterior descending artery in the remote past and in February 2015, she had a heart catheterization, which demonstrated widely patent stents and no abnormalities. I believe she had another heart catheterization done in April of last year, which demonstrated normal circumflex, normal left and right coronary artery and widely patent stent in the LAD with only mildly jailed small diagonal branch. She came to the hospital because she had a dizzy spell where she had this feeling of being off balance for about 15 minutes, not accompanied by any vertigo, nausea or any double vision or . She felt a little hot around that time. She had very localized pain over the left fourth intercostal space that lasted for about 15 minutes. She has not had any PND, orthopnea, or swelling of the lower extremities. She does have some exertional shortness of breath because of obesity. PAST MEDICAL HISTORY: Includes coronary artery disease as described above, diabetes mellitus type 2, essential hypertension, gastroparesis, GERD, hypercholesterolemia, metabolic syndrome, morbid obesity. She has had an endometrial ablative procedure, hysterectomy. PHYSICAL EXAMINATION: GENERAL: This is a patient who is moderately obese, alert, oriented, comfortable, not diaphoretic. VITAL SIGNS: Temperature is normal, pulse is regular at 72, blood pressure 150/91. NECK: Normal JVP. No bruit in the neck. HEART: There is no cardiomegaly. No murmurs are present. EXTREMITIES: Good pedal pulses. Legs are large, but no pitting edema. LUNGS: Clear to auscultation. ECG showed normal sinus rhythm with slightly low voltage T waves and troponin levels are normal. IMPRESSION: 1. Acute chest pain is very localized and is noncardiac, recent heart catheterization was unremarkable, therefore she does not require any further workup. This pain was noncardiac. 2. She was unsteady on her feet for about 15 minutes, but I do not suspect any dysrhythmias. From cardiac standpoint, she may be discharged to home. I thank you on behalf of Dr. Chicas for this consult. [place], [place] REPORT OF CONSULTATION NAME: MELISSA ROBBINS UNIT #: [id number] ROOM: 415 DOCTOR: FERN VILLEGAS MD BIRTHDATE: [birth year] FERN VILLEGAS MD CM:CONSTR:REPORT OF CONSULTATION 16 07/21/17 0021 interface
[2017-07-20 00:43] LABS: BASO % 0.1 % (0.0-1.0); EOS # 0.2 10*3/uL (0.0-0.4); EOS % 1.9 % (1.0-4.0); HEMATOCRIT 37.6 % (37.0-47.0); HEMOGLOBIN 12.4 g/dl (12.0-16.0); LYMPH # 2.3 10*3/uL (1.3-4.4); LYMPH % 27.6 % (27.0-41.0); MEAN CELL VOLUME 85.8 fl (81.0-99.0); MEAN CORPUSCULAR HGB 28.3 pg (27.0-31.0); MONO # 0.6 10*3/uL (0.1-1.0); MONO % 6.6 % (3.0-9.0); NEUT # 5.3 10*3/uL (2.3-7.9); NEUT % 63.6 % (47.0-73.0); PLATELET COUNT AUTOMATED 288 10*3/uL (130-400); RED BLOOD COUNT 4.38 10*6/uL (4.10-5.10); RED CELL DISTRI WIDTH 13.9 % (0-14.5); WHITE BLOOD COUNT 8.4 10*3/uL (4.8-10.8)
[2017-07-20 00:52] LABS: ACT PARTIAL THROMBO TIME 25.9 SECONDS (20.8-31.5)
[2017-07-20 01:01] LABS: ALBUMIN 3.2 gm/dl (3.1-4.5); ALKALINE PHOSPHATASE 78 U/L (45-117); BUN 15 mg/dl (7-24); CHLORIDE 110 mmol/L (98-107); CREATININE 0.79 mg/dL (0.55-1.02); POTASSIUM 3.5 mmol/L (3.5-5.1); SGOT/AST 21 IU/L (3-35); SGPT/ALT 22 U/L (12-78); SODIUM 144 mmol/L (136-145); TOTAL PROTEIN 7.1 gm/dL (6.4-8.2)
[2017-07-20 01:17] LABS: TROPONIN I < 0.015 ng/ml (<0.045)
[2017-07-20 06:31] LABS: BASO % 0.1 % (0.0-1.0); EOS # 0.1 10*3/uL (0.0-0.4); EOS % 2.1 % (1.0-4.0); HEMATOCRIT 36.7 % (37.0-47.0); LYMPH # 1.9 10*3/uL (1.3-4.4); LYMPH % 28.2 % (27.0-41.0); MEAN CELL VOLUME 85.9 fl (81.0-99.0); MEAN CORPUSCULAR HGB 28.1 pg (27.0-31.0); MEAN CORPUSCULAR HGB CONC 32.7 g/dl (33.0-37.0); MEAN PLATELET VOLUME 9.6 fl (9.6-12.3); MONO # 0.4 10*3/uL (0.1-1.0); MONO % 5.9 % (3.0-9.0); NEUT # 4.3 10*3/uL (2.3-7.9); NEUT % 63.6 % (47.0-73.0); PLATELET COUNT AUTOMATED 245 10*3/uL (130-400); RED BLOOD COUNT 4.27 10*6/uL (4.10-5.10); WHITE BLOOD COUNT 6.8 10*3/uL (4.8-10.8)
[2017-07-20 07:00] LABS: ALBUMIN 3.2 gm/dl (3.1-4.5); ALKALINE PHOSPHATASE 73 U/L (45-117); BUN 14 mg/dl (7-24); CHLORIDE 108 mmol/L (98-107); CHOLESTEROL 148 mg/dL (<200); CREATININE 0.68 mg/dL (0.55-1.02); HDL CHOLESTEROL 27 mg/dl (40-60); LDL CHOLESTEROL 72 mg/dL (9-159); PHOSPHOROUS 5.3 mg/dL (2.5-4.9); POTASSIUM 3.1 mmol/L (3.5-5.1); SGOT/AST 10 IU/L (3-35); SGPT/ALT 19 U/L (12-78); SODIUM 144 mmol/L (136-145); TOTAL PROTEIN 6.8 gm/dL (6.4-8.2); TRIGLYCERIDES 245 mg/dl (<150); VLDL CHOLESTEROL 49 mg/dL (6-40)
[2017-07-20 07:05] LABS: THYROID STIM HORMONE (HS) 0.838 uIU/ml (0.358-4.75)
[2017-07-20 08:37] LABS: VITAMIN D, 25-HYDROXY 21.1 ng/mL (30-100)
[2017-07-21] VITALS: BP 148/85
[2017-07-21 06:06] LABS: BUN 11 mg/dl (7-24); CHLORIDE 105 mmol/L (98-107); POTASSIUM 3.3 mmol/L (3.5-5.1); SODIUM 142 mmol/L (136-145)
[2017-07-21 06:12] LABS: BASO % 0.3 % (0.0-1.0); EOS # 0.2 10*3/uL (0.0-0.4); EOS % 2.4 % (1.0-4.0); HEMOGLOBIN 12.4 g/dl (12.0-16.0); LYMPH # 1.8 10*3/uL (1.3-4.4); MEAN CELL VOLUME 87.4 fl (81.0-99.0); MEAN CORPUSCULAR HGB 28.5 pg (27.0-31.0); MEAN CORPUSCULAR HGB CONC 32.6 g/dl (33.0-37.0); MEAN PLATELET VOLUME 10.2 fl (9.6-12.3); MONO # 0.3 10*3/uL (0.1-1.0); MONO % 5.2 % (3.0-9.0); NEUT # 4.1 10*3/uL (2.3-7.9); NEUT % 63.9 % (47.0-73.0); PLATELET COUNT AUTOMATED 287 10*3/uL (130-400); RED BLOOD COUNT 4.35 10*6/uL (4.10-5.10); RED CELL DISTRI WIDTH 13.9 % (0-14.5); WHITE BLOOD COUNT 6.4 10*3/uL (4.8-10.8)
[2017-07-21 09:00] VITALS: BP 129/70
[2017-07-21] MEDS ORDERED: VICODIN 5-3001 EACH PO (10:37)
[2017-07-21] MEDS ORDERED: SIMVASTATIN40 MG PO (10:37)
[2017-07-21] MEDS ORDERED: SEPTDS PO (10:37)
[2017-07-21] MEDS ORDERED: B12,B-12,B 12500 MC1 PO (10:37)
[2017-07-21] MEDS ORDERED: VITAMIN D31000 UNI1 PO (10:37)
== END 2017-07-21 10:59 | disposition home or self-care (01) | DRG 313 ==
LOC: ED 00:23 → 4E 03:41 → EDHOLD 03:41 → 4E 03:46
PROVIDERS: Emergency Medicine Emergency Medical Services; Hospitalist; Internal Medicine Hospice and Palliative Medicine
DX: R07.89 Other chest pain (principal); I25.10 Atherosclerotic heart disease of native coronary artery without angina pectoris; E88.81 Metabolic syndrome and other insulin resistance; E87.8 Other disorders of electrolyte and fluid balance, not elsewhere classified; K31.84 Gastroparesis; E66.01 Morbid (severe) obesity due to excess calories; E11.43 Type 2 diabetes mellitus with diabetic autonomic (poly)neuropathy; Z68.41 Body mass index [BMI] 40.0-44.9, adult; K21.9 Gastro-esophageal reflux disease without esophagitis; F41.9 Anxiety disorder, unspecified; I10 Essential (primary) hypertension; L73.2 Hidradenitis suppurativa; E78.00 Pure hypercholesterolemia, unspecified; Z95.5 Presence of coronary angioplasty implant and graft; Z82.49 Family history of ischemic heart disease and other diseases of the circulatory system; Z79.82 Long term (current) use of aspirin; Z87.891 Personal history of nicotine dependence; Z79.899 Other long term (current) drug therapy; Z79.84 Long term (current) use of oral hypoglycemic drugs; Z90.721 Acquired absence of ovaries, unilateral; Z90.49 Acquired absence of other specified parts of digestive tract; Z90.79 Acquired absence of other genital organ(s); Z83.3 Family history of diabetes mellitus; Z82.3 Family history of stroke; Z83.1 Family history of other infectious and parasitic diseases; Z84.89 Family history of other specified conditions; Z98.51 Tubal ligation status

== ENCOUNTER 2017-07-28 15:18 | Emergency (ER) | payer OTHER ==
[~2017-07-28] VITALS: Ht 157.4 cm; Wt 108.9 kg
[~2017-07-28 15:18] MED LIST changes: +SEPTDS PO; +SIMVASTATIN40 MG PO; +VICODIN 5-3001 EACH PO; +VITAMIN D31000 UNI1 PO
[2017-07-28 15:25] VITALS: BP 144/114
[2017-07-28 15:42] LABS: BASO % 0.3 % (0.0-1.0); EOS # 0.2 10*3/uL (0.0-0.4); EOS % 2.1 % (1.0-4.0); HEMATOCRIT 37.3 % (37.0-47.0); HEMOGLOBIN 12.2 g/dl (12.0-16.0); LYMPH # 2.1 10*3/uL (1.3-4.4); LYMPH % 28.9 % (27.0-41.0); MEAN CORPUSCULAR HGB 27.5 pg (27.0-31.0); MEAN CORPUSCULAR HGB CONC 32.7 g/dl (33.0-37.0); MEAN PLATELET VOLUME 9.6 fl (9.6-12.3); MONO # 0.4 10*3/uL (0.1-1.0); MONO % 5.4 % (3.0-9.0); NEUT # 4.5 10*3/uL (2.3-7.9); PLATELET COUNT AUTOMATED 322 10*3/uL (130-400); RED BLOOD COUNT 4.44 10*6/uL (4.10-5.10); RED CELL DISTRI WIDTH 13.5 % (0-14.5); WHITE BLOOD COUNT 7.1 10*3/uL (4.8-10.8)
[2017-07-28 15:59] LABS: ALBUMIN 3.2 gm/dl (3.1-4.5); ALKALINE PHOSPHATASE 79 U/L (45-117); BUN 12 mg/dl (7-24); CHLORIDE 107 mmol/L (98-107); LIPASE 222 U/L (73-393); POTASSIUM 3.6 mmol/L (3.5-5.1); SGOT/AST 19 IU/L (3-35); SGPT/ALT 28 U/L (12-78); SODIUM 143 mmol/L (136-145); TOTAL PROTEIN 7.2 gm/dL (6.4-8.2)
[2017-07-28 16:01] LABS: BILIRUBIN NEGATIVE (NEGATIVE); BLOOD NEGATIVE (NEGATIVE); CLARITY CLEAR (CLEAR); COLOR YELLOW (YELLOW); GLUCOSE NEGATIVE (NEGATIVE); KETONE NEGATIVE (NEGATIVE); LEUKO ESTERASE NEGATIVE (NEGATIVE); NITRITE NEGATIVE (NEGATIVE); PH 5.5 (5.0-9.0); SPECIFIC GRAVITY 1.025 (1.005-1.030); UROBILINOGEN 0.2 E.U./dl (0.2-1.0)
[2017-07-28 16:09] LABS: BACTERIA 2+; MUCOUS TRACE; RBC 0-2 rbc/hpf (0-2)
[2017-07-28] MEDS ORDERED: MIRALAX POWDER17 G1 PO (16:36)
[2017-07-28] MEDS ORDERED: ZOFRAN4 MG PO (16:36)
[2017-08-01] MEDS ORDERED: ZANTAC 150150 MG PO (10:52)
== END 2017-07-28 16:40 | disposition home or self-care (01) ==
LOC: ED 15:18
PROVIDERS: Nurse Practitioner Family
DX: K59.00 Constipation, unspecified (principal); I10 Essential (primary) hypertension; E11.9 Type 2 diabetes mellitus without complications; K21.9 Gastro-esophageal reflux disease without esophagitis; E78.00 Pure hypercholesterolemia, unspecified; E66.01 Morbid (severe) obesity due to excess calories; Z98.890 Other specified postprocedural states; Z98.51 Tubal ligation status; Z90.710 Acquired absence of both cervix and uterus; Z79.82 Long term (current) use of aspirin; Z79.899 Other long term (current) drug therapy

== ENCOUNTER → 2017-08-03 | Day surgery (SDC) | payer OTHER ==
[~2017-08-03] VITALS: Ht 157.4 cm; Wt 108.9 kg
[~2017-08-03] MED LIST changes: +MIRALAX POWDER17 G1 PO
--- NOTE | ~2017-08-03 | PROC NOTE ---
[place], [place] PROCEDURE NOTE NAME: MELISSA ROBBINS [facility] #: [id number] UNIT #: [id number] ROOM: DOCTOR: BEAU CRESPO MD BIRTHDATE: [birth year] DOS: 08/03/2017 PREOPERATIVE DIAGNOSIS: Right axillary cyst. POSTOPERATIVE DIAGNOSIS: Right axillary cyst. PROCEDURE: Excision of right axillary cyst. SURGEON: Beau Crespo MD MAITRE D: MS4. ANESTHESIA: MAC with local. INDICATIONS: This is a 47-year-old lady who has got a history of an infected right axillary cyst who is here for the above-mentioned procedure. The procedure and its complications are explained to the patient in detail preoperatively. Complications that have been discussed included but were not limited to bleeding, infection, hematoma/seroma/abscess formation, and prolonged pain. She agreed to proceed. DESCRIPTION OF PROCEDURE: After identifying the patient, the patient was brought to the operating suite and laid in the supine position. After IV sedation was administered, the parts were painted and draped in the usual sterile fashion and a time-out procedure was called. An elliptical incision was marked over the cyst and local anesthesia (approximately 9 mL of 1% plain lidocaine) were injected. The skin and the subcutaneous tissue were incised in an elliptical fashion and the specimen was removed with the help of electrocautery and sent for histopathological diagnosis. Thereafter, hemostasis was achieved with the help of electrocautery and the skin edges were then approximated with the help of 3-0 Vicryl in a running fashion. Dressing was placed. The patient tolerated the procedure well and was brought back to the recovery room in stable fashion. There were no complications. Dr. Beau Crespo, the attending surgeon, was present throughout the operating case. Beau Crespo MD CM:PROCNOTE:PROCEDURE NOTE 0924 1102 BEAU CRESPO MD
[2017-08-03 07:11] VITALS: BP 137/63
[2017-08-03 07:59] VITALS: BP 138/73
[2017-08-03 08:14] VITALS: BP 107/54
[2017-08-03 08:29] VITALS: BP 156/83
[2017-08-03 08:39] VITALS: BP 137/80
== END | disposition home or self-care (01) ==
LOC: SDC 07-31 10:15
DX: L72.0 Epidermal cyst (principal); E11.9 Type 2 diabetes mellitus without complications; F41.9 Anxiety disorder, unspecified; I10 Essential (primary) hypertension; K21.9 Gastro-esophageal reflux disease without esophagitis; F32.9 Major depressive disorder, single episode, unspecified; I25.10 Atherosclerotic heart disease of native coronary artery without angina pectoris; Z86.14 Personal history of Methicillin resistant Staphylococcus aureus infection; Z95.5 Presence of coronary angioplasty implant and graft; Z90.710 Acquired absence of both cervix and uterus; Z82.49 Family history of ischemic heart disease and other diseases of the circulatory system; Z87.891 Personal history of nicotine dependence; Z79.899 Other long term (current) drug therapy

== ENCOUNTER 2017-08-11 12:47 | Emergency (ER) | payer OTHER ==
[~2017-08-11] VITALS: Ht 157.4 cm; Wt 108.4 kg
--- NOTE | ~2017-08-11 | EKG ---
[place], [place] ELECTROCARDIOGRAM REPORT NAME: MELISSA ROBBINS UNIT #: [id number] ROOM: DOCTOR: FERN VILLEGAS MD BIRTHDATE: [birth year] DOS: 08/11/2017 ELECTROCARDIOGRAM REPORT TIME: 1413 hours. RESULTS: 1. Normal sinus rhythm at 68 beats per minute. 2. Tracing is within normal limits. 3. No previous tracing is available for comparison. FERN VILLEGAS MD CM:EKGRPT:ELECTROCARDIOGRAM REPORT 1720 2308 FERN VILLEGAS MD
[2017-08-11 13:00] VITALS: BP 128/84
[2017-08-11 13:22] LABS: BILIRUBIN NEGATIVE (NEGATIVE); BLOOD TRACE-LYSED (NEGATIVE); CLARITY CLOUDY (CLEAR); COLOR YELLOW (YELLOW); GLUCOSE NEGATIVE (NEGATIVE); KETONE NEGATIVE (NEGATIVE); LEUKO ESTERASE 1+ (NEGATIVE); NITRITE NEGATIVE (NEGATIVE); UROBILINOGEN 0.2 E.U./dl (0.2-1.0)
[2017-08-11 13:36] LABS: BACTERIA 1+; EPITHELIAL CELLS TNTC; WBC 16-20 wbc/hpf (0-5)
[2017-08-11 14:28] LABS: BASO % 0.3 % (0.0-1.0); EOS # 0.1 10*3/uL (0.0-0.4); EOS % 2.1 % (1.0-4.0); HEMATOCRIT 36.6 % (37.0-47.0); HEMOGLOBIN 12.1 g/dl (12.0-16.0); LYMPH # 2.5 10*3/uL (1.3-4.4); LYMPH % 36.6 % (27.0-41.0); MEAN CELL VOLUME 86.1 fl (81.0-99.0); MEAN CORPUSCULAR HGB 28.5 pg (27.0-31.0); MEAN CORPUSCULAR HGB CONC 33.1 g/dl (33.0-37.0); MEAN PLATELET VOLUME 9.5 fl (9.6-12.3); MONO # 0.4 10*3/uL (0.1-1.0); MONO % 6.5 % (3.0-9.0); NEUT # 3.7 10*3/uL (2.3-7.9); NEUT % 54.1 % (47.0-73.0); PLATELET COUNT AUTOMATED 266 10*3/uL (130-400); RED BLOOD COUNT 4.25 10*6/uL (4.10-5.10); RED CELL DISTRI WIDTH 13.9 % (0-14.5); WHITE BLOOD COUNT 6.8 10*3/uL (4.8-10.8)
[2017-08-11 14:44] LABS: ALBUMIN 3.3 gm/dl (3.1-4.5); ALKALINE PHOSPHATASE 66 U/L (45-117); BUN 7 mg/dl (7-24); CHLORIDE 107 mmol/L (98-107); CREATININE 0.62 mg/dL (0.55-1.02); LIPASE 201 U/L (73-393); POTASSIUM 3.8 mmol/L (3.5-5.1); SGOT/AST 19 IU/L (3-35); SGPT/ALT 22 U/L (12-78); SODIUM 141 mmol/L (136-145); TOTAL PROTEIN 7.2 gm/dL (6.4-8.2); TROPONIN I < 0.015 ng/ml (<0.045)
== END 2017-08-11 17:44 | disposition home or self-care (01) ==
LOC: ED 12:47
PROVIDERS: Student in an Organized Health Care Education/Training Program
DX: R10.31 Right lower quadrant pain (principal); I25.10 Atherosclerotic heart disease of native coronary artery without angina pectoris; I10 Essential (primary) hypertension; K21.9 Gastro-esophageal reflux disease without esophagitis; E11.9 Type 2 diabetes mellitus without complications; E66.01 Morbid (severe) obesity due to excess calories; E78.00 Pure hypercholesterolemia, unspecified; Z87.891 Personal history of nicotine dependence; Z98.890 Other specified postprocedural states; Z98.51 Tubal ligation status; Z90.710 Acquired absence of both cervix and uterus; Z79.899 Other long term (current) drug therapy; Z79.82 Long term (current) use of aspirin

== ENCOUNTER 2017-08-15 00:15 | Emergency (ER) | payer OTHER ==
[~2017-08-15] VITALS: Wt 108.4 kg
[2017-08-15 00:33] LABS: BASO % 0.6 % (0.0-1.0); EOS # 0.2 10*3/uL (0.0-0.4); EOS % 3.1 % (1.0-4.0); HEMATOCRIT 39.2 % (37.0-47.0); HEMOGLOBIN 12.9 g/dl (12.0-16.0); LYMPH # 2.6 10*3/uL (1.3-4.4); LYMPH % 37.9 % (27.0-41.0); MEAN CELL VOLUME 86.3 fl (81.0-99.0); MEAN CORPUSCULAR HGB 28.4 pg (27.0-31.0); MEAN CORPUSCULAR HGB CONC 32.9 g/dl (33.0-37.0); MEAN PLATELET VOLUME 9.8 fl (9.6-12.3); MONO # 0.5 10*3/uL (0.1-1.0); MONO % 6.8 % (3.0-9.0); NEUT # 3.5 10*3/uL (2.3-7.9); NEUT % 51.3 % (47.0-73.0); PLATELET COUNT AUTOMATED 303 10*3/uL (130-400); RED BLOOD COUNT 4.54 10*6/uL (4.10-5.10); WHITE BLOOD COUNT 6.8 10*3/uL (4.8-10.8)
[2017-08-15 00:47] LABS: ACT PARTIAL THROMBO TIME 24.9 SECONDS (20.8-31.5)
[2017-08-15 00:50] LABS: ALBUMIN 3.6 gm/dl (3.1-4.5); ALKALINE PHOSPHATASE 73 U/L (45-117); BUN 11 mg/dl (7-24); CHLORIDE 110 mmol/L (98-107); CREATININE 0.87 mg/dL (0.55-1.02); LIPASE 256 U/L (73-393); POTASSIUM 3.5 mmol/L (3.5-5.1); SGOT/AST 22 IU/L (3-35); SGPT/ALT 23 U/L (12-78); SODIUM 147 mmol/L (136-145); TOTAL PROTEIN 7.7 gm/dL (6.4-8.2)
[2017-08-15 00:51] LABS: TROPONIN I < 0.015 ng/ml (<0.045)
[2017-08-15 01:32] VITALS: BP 118/71
== END 2017-08-15 01:44 | disposition home or self-care (01) ==
LOC: ED 00:15
PROVIDERS: Nurse Practitioner Family
DX: M94.0 Chondrocostal junction syndrome [Tietze] (principal); R07.9 Chest pain, unspecified; E11.9 Type 2 diabetes mellitus without complications; I10 Essential (primary) hypertension; K21.9 Gastro-esophageal reflux disease without esophagitis; E78.00 Pure hypercholesterolemia, unspecified; E66.01 Morbid (severe) obesity due to excess calories; I25.10 Atherosclerotic heart disease of native coronary artery without angina pectoris; Z87.891 Personal history of nicotine dependence; Z98.890 Other specified postprocedural states; Z90.710 Acquired absence of both cervix and uterus; Z98.51 Tubal ligation status; Z79.82 Long term (current) use of aspirin; Z79.899 Other long term (current) drug therapy

== ENCOUNTER 2017-08-25 10:53 | Emergency (ER) | payer OTHER ==
[~2017-08-25] VITALS: Ht 157.4 cm; Wt 108.4 kg
[2017-08-25 12:07] LABS: BASO % 0.3 % (0.0-1.0); EOS # 0.1 10*3/uL (0.0-0.4); EOS % 1.4 % (1.0-4.0); HEMATOCRIT 37.9 % (37.0-47.0); HEMOGLOBIN 12.5 g/dl (12.0-16.0); LYMPH # 1.7 10*3/uL (1.3-4.4); LYMPH % 29.2 % (27.0-41.0); MEAN CELL VOLUME 84.4 fl (81.0-99.0); MEAN CORPUSCULAR HGB 27.8 pg (27.0-31.0); MEAN PLATELET VOLUME 9.5 fl (9.6-12.3); MONO # 0.3 10*3/uL (0.1-1.0); MONO % 5.8 % (3.0-9.0); NEUT # 3.7 10*3/uL (2.3-7.9); NEUT % 63.1 % (47.0-73.0); PLATELET COUNT AUTOMATED 272 10*3/uL (130-400); RED BLOOD COUNT 4.49 10*6/uL (4.10-5.10); RED CELL DISTRI WIDTH 13.8 % (0-14.5); WHITE BLOOD COUNT 5.9 10*3/uL (4.8-10.8)
[2017-08-25 12:30] LABS: ALBUMIN 3.4 gm/dl (3.1-4.5); ALKALINE PHOSPHATASE 73 U/L (45-117); BUN 10 mg/dl (7-24); CHLORIDE 109 mmol/L (98-107); CREATININE 0.73 mg/dL (0.55-1.02); POTASSIUM 3.7 mmol/L (3.5-5.1); SGOT/AST 21 IU/L (3-35); SGPT/ALT 24 U/L (12-78); SODIUM 143 mmol/L (136-145); TOTAL PROTEIN 7.5 gm/dL (6.4-8.2)
[2017-08-25 13:29] LABS: BILIRUBIN 1+ (NEGATIVE); BLOOD NEGATIVE (NEGATIVE); CLARITY CLEAR (CLEAR); COLOR YELLOW (YELLOW); GLUCOSE NEGATIVE (NEGATIVE); KETONE NEGATIVE (NEGATIVE); LEUKO ESTERASE NEGATIVE (NEGATIVE); NITRITE NEGATIVE (NEGATIVE); PH 7.5 (5.0-9.0); SPECIFIC GRAVITY 1.015 (1.005-1.030)
[2017-08-25 13:37] LABS: BACTERIA 2+; MUCOUS 1+
[2017-08-25 15:51] VITALS: BP 128/79
== END 2017-08-25 16:27 | disposition home or self-care (01) ==
LOC: ED 10:53
PROVIDERS: Emergency Medicine
DX: R10.31 Right lower quadrant pain (principal); R11.2 Nausea with vomiting, unspecified; E11.9 Type 2 diabetes mellitus without complications; I10 Essential (primary) hypertension; K21.9 Gastro-esophageal reflux disease without esophagitis; E78.00 Pure hypercholesterolemia, unspecified; E66.01 Morbid (severe) obesity due to excess calories; I25.10 Atherosclerotic heart disease of native coronary artery without angina pectoris; Z98.51 Tubal ligation status; Z87.891 Personal history of nicotine dependence; Z90.49 Acquired absence of other specified parts of digestive tract; Z98.890 Other specified postprocedural states; Z95.5 Presence of coronary angioplasty implant and graft; Z79.82 Long term (current) use of aspirin

== ENCOUNTER 2017-08-28 21:33 | Emergency (ER) | payer OTHER ==
[~2017-08-28] VITALS: Ht 157.4 cm; Wt 108.4 kg
[2017-08-28 21:41] VITALS: BP 126/71
[2017-08-28 22:05] LABS: BASO % 0.4 % (0.0-1.0); EOS # 0.1 10*3/uL (0.0-0.4); EOS % 2.3 % (1.0-4.0); HEMATOCRIT 36.3 % (37.0-47.0); HEMOGLOBIN 12.3 g/dl (12.0-16.0); LYMPH # 2.2 10*3/uL (1.3-4.4); LYMPH % 39.1 % (27.0-41.0); MEAN CELL VOLUME 83.3 fl (81.0-99.0); MEAN CORPUSCULAR HGB 28.2 pg (27.0-31.0); MEAN CORPUSCULAR HGB CONC 33.9 g/dl (33.0-37.0); MEAN PLATELET VOLUME 9.8 fl (9.6-12.3); MONO # 0.4 10*3/uL (0.1-1.0); MONO % 6.3 % (3.0-9.0); NEUT # 2.9 10*3/uL (2.3-7.9); NEUT % 51.7 % (47.0-73.0); PLATELET COUNT AUTOMATED 259 10*3/uL (130-400); RED BLOOD COUNT 4.36 10*6/uL (4.10-5.10); RED CELL DISTRI WIDTH 13.7 % (0-14.5); WHITE BLOOD COUNT 5.6 10*3/uL (4.8-10.8)
[2017-08-28 22:14] LABS: ACT PARTIAL THROMBO TIME 25.8 SECONDS (20.8-31.5)
[2017-08-28 22:25] LABS: ALBUMIN 3.3 gm/dl (3.1-4.5); BUN 11 mg/dl (7-24); CHLORIDE 108 mmol/L (98-107); CREATININE 0.75 mg/dL (0.55-1.02); POTASSIUM 3.5 mmol/L (3.5-5.1); SGOT/AST 17 IU/L (3-35); SGPT/ALT 23 U/L (12-78); SODIUM 143 mmol/L (136-145)
[2017-08-28 22:27] LABS: ALKALINE PHOSPHATASE 72 U/L (45-117)
[2017-08-28 22:28] LABS: TROPONIN I < 0.015 ng/ml (<0.045)
== END 2017-08-29 00:37 | disposition home or self-care (01) ==
LOC: ED 21:33
PROVIDERS: Student in an Organized Health Care Education/Training Program
DX: R07.89 Other chest pain (principal); E11.9 Type 2 diabetes mellitus without complications; I10 Essential (primary) hypertension; K21.9 Gastro-esophageal reflux disease without esophagitis; E66.01 Morbid (severe) obesity due to excess calories; I25.10 Atherosclerotic heart disease of native coronary artery without angina pectoris; E78.00 Pure hypercholesterolemia, unspecified; Z79.899 Other long term (current) drug therapy; Z87.891 Personal history of nicotine dependence; Z98.51 Tubal ligation status; Z98.890 Other specified postprocedural states; Z90.49 Acquired absence of other specified parts of digestive tract; Z79.82 Long term (current) use of aspirin

== ENCOUNTER 2017-09-27 10:47 | Inpatient (IN) | payer OTHER ==
[2017-09-27] VITALS (9 sets, daily range): BP systolic 103–150; BP diastolic 55–81
[~2017-09-27] VITALS: Ht 157.4 cm; Wt 100.5 kg
--- NOTE | ~2017-09-27 | CON ---
[place], [place] REPORT OF CONSULTATION [id number] UNIT #: [id number] ROOM: 516 DOCTOR: FERN VILLEGAS MD BIRTHDATE: [birth year] DOS: 09/28/2017 HISTORY OF PRESENT ILLNESS: This is a 47-year-old -Turkish woman with a history of coronary artery disease. She has a stent in the left anterior descending artery and she had a heart catheterization done in February 2015, which demonstrated patent stents and normal LV systolic function. She has never had heart failure or rhythm disorder of the heart. She has essential hypertension, has had diabetes mellitus with gastroparesis and GERD, hypercholesterolemia, morbid obesity. She has had hysterectomy in the remote past. She does not smoke nor does she drink alcoholic beverages. She lives at home. She is a very active lady who manages her household. She is generally active without any chest pain or undue shortness of breath, has not had any swelling of the lower extremities, orthopnea; however, she the night before this admission, she woke up with lower retrosternal chest squeezing feeling that lasted for about 15 minutes. It went into the left anterior part of the chest, but it did not radiate to the shoulder, neck, or into the back. She had no accompanying palpitations, sweating, nausea or any breathing difficulty. She did not pass out. Since admission, she has been well and has not had any symptoms. HOME MEDICATIONS: Aspirin, cholecalciferol, clonazepam, clopidogrel, B12, p.o. doxycycline, fluoxetine, furosemide, Wallace 5/325, lorazepam, metformin, MiraLax, potassium chloride, ranitidine, Carafate, and sublingual nitroglycerin. PHYSICAL EXAMINATION: GENERAL: The is a patient who is short and moderately obese, very pleasant, alert. Her complexion is fine, i.e., no cyanosis, jaundice, or anemia. VITAL SIGNS: Pulse is 64 and regular, blood pressure 129/77. NECK: Normal JVP. No bruit in the neck. HEART: There is no cardiomegaly, no murmurs are present. EXTREMITIES: Good pedal pulses and no edema in the lower extremity. RESPIRATORY: Lungs are clear to percussion and auscultation. However, there is quite a bit of tenderness over the third, fourth and fifth left costochondral junctions and not so on the right side. DIAGNOSTIC STUDIES: ECG are normal. Troponin I levels are also normal. I walked this lady for 500 yards at a good pace and she did not have any symptoms. IMPRESSION: This patient probably had pain due to her gastroesophageal reflux problem. I doubt that this represented ischemia. She is asymptomatic and walked aggressively in the hallway without symptoms. From cardiac standpoint, she can be discharged home. She has an appointment to see me in the near future and she should keep that. I thank you for this consult. [place], [place] REPORT OF CONSULTATION NAME: MELISSA ROBBINS UNIT #: [id number] ROOM: 516 DOCTOR: FERN VILLEGAS MD BIRTHDATE: [birth year] FERN VILLEGAS MD CM:CONSTR:REPORT OF CONSULTATION 1054 09/28/17 1139 interface
[~2017-09-27 10:47] MED LIST changes: +DOXYCYCLINE50 M2 PO
[2017-09-27 11:02] LABS: BASO % 0.4 % (0.0-1.0); EOS # 0.1 10*3/uL (0.0-0.4); EOS % 1.1 % (1.0-4.0); LYMPH # 1.6 10*3/uL (1.3-4.4); LYMPH % 30.5 % (27.0-41.0); MEAN CELL VOLUME 84.7 fl (81.0-99.0); MEAN CORPUSCULAR HGB 27.5 pg (27.0-31.0); MEAN CORPUSCULAR HGB CONC 32.5 g/dl (33.0-37.0); MEAN PLATELET VOLUME 9.1 fl (9.6-12.3); MONO # 0.4 10*3/uL (0.1-1.0); MONO % 6.7 % (3.0-9.0); NEUT # 3.2 10*3/uL (2.3-7.9); NEUT % 61.1 % (47.0-73.0); PLATELET COUNT AUTOMATED 284 10*3/uL (130-400); RED BLOOD COUNT 4.72 10*6/uL (4.10-5.10); RED CELL DISTRI WIDTH 13.5 % (0-14.5); WHITE BLOOD COUNT 5.2 10*3/uL (4.8-10.8)
[2017-09-27 11:14] LABS: ACT PARTIAL THROMBO TIME 24.8 SECONDS (20.8-31.5)
[2017-09-27 11:19] LABS: ALBUMIN 3.5 gm/dl (3.1-4.5); ALKALINE PHOSPHATASE 80 U/L (45-117); BUN 12 mg/dl (7-24); CHLORIDE 106 mmol/L (98-107); CREATININE 0.71 mg/dL (0.55-1.02); POTASSIUM 3.9 mmol/L (3.5-5.1); SGOT/AST 18 IU/L (3-35); SGPT/ALT 22 U/L (12-78); SODIUM 140 mmol/L (136-145); TOTAL PROTEIN 7.4 gm/dL (6.4-8.2); TROPONIN I < 0.015 ng/ml (<0.045)
[2017-09-27] MEDS ORDERED: PROZAC40 M1 PO (13:39)
[2017-09-28] VITALS: BP 134/76
[2017-09-28 04:00] VITALS: BP 129/77
[2017-09-28 06:01] LABS: BASO % 0.4 % (0.0-1.0); EOS # 0.1 10*3/uL (0.0-0.4); EOS % 1.6 % (1.0-4.0); HEMATOCRIT 40.5 % (37.0-47.0); HEMOGLOBIN 13.3 g/dl (12.0-16.0); LYMPH # 1.6 10*3/uL (1.3-4.4); LYMPH % 29.6 % (27.0-41.0); MEAN CELL VOLUME 86.2 fl (81.0-99.0); MEAN CORPUSCULAR HGB 28.3 pg (27.0-31.0); MEAN CORPUSCULAR HGB CONC 32.8 g/dl (33.0-37.0); MEAN PLATELET VOLUME 9.3 fl (9.6-12.3); MONO # 0.3 10*3/uL (0.1-1.0); MONO % 5.8 % (3.0-9.0); NEUT # 3.4 10*3/uL (2.3-7.9); NEUT % 62.1 % (47.0-73.0); PLATELET COUNT AUTOMATED 267 10*3/uL (130-400); RED CELL DISTRI WIDTH 13.6 % (0-14.5); WHITE BLOOD COUNT 5.5 10*3/uL (4.8-10.8)
[2017-09-28 06:22] LABS: ALBUMIN 3.2 gm/dl (3.1-4.5); ALKALINE PHOSPHATASE 79 U/L (45-117); BUN 10 mg/dl (7-24); CHLORIDE 106 mmol/L (98-107); CHOLESTEROL 184 mg/dL (<200); CREATININE 0.71 mg/dL (0.55-1.02); HDL CHOLESTEROL 25 mg/dl (40-60); LDL CHOLESTEROL 104 mg/dL (9-159); PHOSPHOROUS 3.5 mg/dL (2.5-4.9); POTASSIUM 3.6 mmol/L (3.5-5.1); SGOT/AST 20 IU/L (3-35); SGPT/ALT 26 U/L (12-78); SODIUM 141 mmol/L (136-145); TOTAL PROTEIN 6.9 gm/dL (6.4-8.2); TRIGLYCERIDES 274 mg/dl (<150); VLDL CHOLESTEROL 55 mg/dL (6-40)
[2017-09-28 08:00] VITALS: BP 102/60
[2017-09-28 12:00] VITALS: BP 113/70
[2017-09-28] MEDS ORDERED: METFORMIN500 MG PO (12:05)
== END 2017-09-28 14:50 | disposition home or self-care (01) | DRG 392 ==
LOC: ED 10:47 → EDHOLD 12:48 → 5E 12:48
PROVIDERS: Emergency Medicine; Family Medicine
DX: K21.9 Gastro-esophageal reflux disease without esophagitis (principal); E11.69 Type 2 diabetes mellitus with other specified complication; K31.84 Gastroparesis; E88.81 Metabolic syndrome and other insulin resistance; E83.41 Hypermagnesemia; E66.01 Morbid (severe) obesity due to excess calories; E11.43 Type 2 diabetes mellitus with diabetic autonomic (poly)neuropathy; Z68.41 Body mass index [BMI] 40.0-44.9, adult; E83.51 Hypocalcemia; I25.10 Atherosclerotic heart disease of native coronary artery without angina pectoris; H50.9 Unspecified strabismus; Z95.5 Presence of coronary angioplasty implant and graft; E78.00 Pure hypercholesterolemia, unspecified; I10 Essential (primary) hypertension; Z90.721 Acquired absence of ovaries, unilateral; Z90.79 Acquired absence of other genital organ(s); F41.9 Anxiety disorder, unspecified; Z98.890 Other specified postprocedural states; K59.00 Constipation, unspecified; E78.5 Hyperlipidemia, unspecified; Z87.891 Personal history of nicotine dependence; Z82.3 Family history of stroke; Z82.49 Family history of ischemic heart disease and other diseases of the circulatory system; Z79.82 Long term (current) use of aspirin; Z79.84 Long term (current) use of oral hypoglycemic drugs; Z79.899 Other long term (current) drug therapy; Z90.49 Acquired absence of other specified parts of digestive tract

== ENCOUNTER 2017-10-13 19:10 | Emergency (ER) | payer OTHER ==
[~2017-10-13] VITALS: Ht 154.9 cm; Wt 81.6 kg
[~2017-10-13 19:10] MED LIST changes: +PROZAC40 M1 PO
[2017-10-13 19:13] VITALS: BP 180/112
[2017-10-13] MEDS ORDERED: KEFLEX500 M1 PO (19:16)
[2017-10-13] MEDS ORDERED: SEPTDS PO (19:16)
[2017-10-13] MEDS ORDERED: Bactroban Oint22 GM T (19:16)
== END 2017-10-13 19:22 | disposition home or self-care (01) ==
LOC: ED 19:10
DX: S40.861A Insect bite (nonvenomous) of right upper arm, initial encounter (principal); I25.10 Atherosclerotic heart disease of native coronary artery without angina pectoris; E11.9 Type 2 diabetes mellitus without complications; K21.9 Gastro-esophageal reflux disease without esophagitis; E78.00 Pure hypercholesterolemia, unspecified; E66.01 Morbid (severe) obesity due to excess calories; I10 Essential (primary) hypertension; Z87.891 Personal history of nicotine dependence; Z98.890 Other specified postprocedural states; Z98.51 Tubal ligation status; Z79.899 Other long term (current) drug therapy; Z79.82 Long term (current) use of aspirin; W57.XXXA Bitten or stung by nonvenomous insect and other nonvenomous arthropods, initial encounter; Y93.89 Activity, other specified; Y92.89 Other specified places as the place of occurrence of the external cause; Y99.9 Unspecified external cause status

== ENCOUNTER 2017-11-08 17:40 | Emergency (ER) | payer OTHER ==
[~2017-11-08] VITALS: Wt 99.3 kg
[~2017-11-08 17:40] MED LIST changes: +Bactroban Oint22 GM T; +KEFLEX500 M1 PO
[2017-11-08 17:42] VITALS: BP 168/93
[2017-11-08] MEDS ORDERED: VIBRAMYCIN100 MG PO (19:50)
[2017-11-08] MEDS ORDERED: DELTASONE20 M1 PO (19:50)
== END 2017-11-08 20:10 | disposition home or self-care (01) ==
LOC: ED 17:40
DX: J40 Bronchitis, not specified as acute or chronic (principal); Z87.891 Personal history of nicotine dependence; Z98.890 Other specified postprocedural states; Z90.710 Acquired absence of both cervix and uterus; Z98.51 Tubal ligation status; Z79.899 Other long term (current) drug therapy; Z79.82 Long term (current) use of aspirin

== ENCOUNTER → 2017-11-20 | Outpatient (CLI) | payer OTHER ==
[~2017-11-20] MED LIST changes: +DELTASONE20 M1 PO; +VIBRAMYCIN100 MG PO
== END | disposition home or self-care (01) ==
LOC: NM 07:00
DX: R10.11 Right upper quadrant pain (principal)

== ENCOUNTER 2017-11-27 14:07 | Emergency (ER) | payer OTHER ==
[~2017-11-27] VITALS: Ht 157.4 cm; Wt 99.8 kg
[2017-11-27 14:35] LABS: BASO % 0.3 % (0.0-1.0); EOS # 0.1 10*3/uL (0.0-0.4); EOS % 0.9 % (1.0-4.0); HEMATOCRIT 41.2 % (37.0-47.0); HEMOGLOBIN 14.1 g/dl (12.0-16.0); LYMPH % 30.4 % (27.0-41.0); MEAN CELL VOLUME 82.7 fl (81.0-99.0); MEAN CORPUSCULAR HGB 28.3 pg (27.0-31.0); MEAN CORPUSCULAR HGB CONC 34.2 g/dl (33.0-37.0); MEAN PLATELET VOLUME 9.7 fl (9.6-12.3); MONO # 0.5 10*3/uL (0.1-1.0); MONO % 7.8 % (3.0-9.0); NEUT % 60.5 % (47.0-73.0); PLATELET COUNT AUTOMATED 310 10*3/uL (130-400); RED BLOOD COUNT 4.98 10*6/uL (4.10-5.10); RED CELL DISTRI WIDTH 14.2 % (0-14.5); WHITE BLOOD COUNT 6.7 10*3/uL (4.8-10.8)
[2017-11-27 14:50] LABS: BILIRUBIN NEGATIVE (NEGATIVE); BLOOD NEGATIVE (NEGATIVE); CLARITY SL CLOUDY (CLEAR); COLOR YELLOW (YELLOW); GLUCOSE NEGATIVE (NEGATIVE); KETONE NEGATIVE (NEGATIVE); LEUKO ESTERASE NEGATIVE (NEGATIVE); NITRITE NEGATIVE (NEGATIVE); PH 5.5 (5.0-9.0); UROBILINOGEN 0.2 E.U./dl (0.2-1.0)
[2017-11-27 14:51] LABS: ALBUMIN 3.5 gm/dl (3.1-4.5); ALKALINE PHOSPHATASE 81 U/L (45-117); BUN 10 mg/dl (7-24); CHLORIDE 107 mmol/L (98-107); CREATININE 0.67 mg/dL (0.55-1.02); LIPASE 412 U/L (73-393); POTASSIUM 3.3 mmol/L (3.5-5.1); SGOT/AST 21 IU/L (3-35); SGPT/ALT 27 U/L (12-78); SODIUM 142 mmol/L (136-145); TOTAL PROTEIN 7.6 gm/dL (6.4-8.2)
[2017-11-27 14:53] LABS: B-hCG (QUALITATIVE) NEGATIVE (NEGATIVE)
[2017-11-27 14:57] LABS: BACTERIA 2+; MUCOUS TRACE; WBC 0-2 wbc/hpf (0-5)
[2017-11-27 14:58] LABS: ACT PARTIAL THROMBO TIME 21.5 SECONDS (20.8-31.5)
[2017-11-27 15:22] VITALS: BP 130/80
== END 2017-11-27 16:32 | disposition home or self-care (01) ==
LOC: ED 14:07
PROVIDERS: Emergency Medicine
DX: G89.29 Other chronic pain (principal); R10.31 Right lower quadrant pain; R11.0 Nausea; R35.0 Frequency of micturition; R91.1 Solitary pulmonary nodule; E11.9 Type 2 diabetes mellitus without complications; K21.9 Gastro-esophageal reflux disease without esophagitis; E78.00 Pure hypercholesterolemia, unspecified; I10 Essential (primary) hypertension; Z87.891 Personal history of nicotine dependence; Z79.899 Other long term (current) drug therapy; Z79.82 Long term (current) use of aspirin; Z90.49 Acquired absence of other specified parts of digestive tract

== ENCOUNTER → 2018-01-24 | Day surgery (SDC) | payer OTHER ==
[~2018-01-24] VITALS: Ht 170.1 cm; Wt 98.4 kg
[~2018-01-24] MED LIST changes: +GLUCOPHAGE500 M1 PO; +PROTONIX20 MG PO; -PROZAC40 M1 PO
--- NOTE | ~2018-01-24 | O ---
[place], [place] OPERATIVE NOTE NAME: MELISSA ROBBINS UNIT #: [id number] ROOM: DOCTOR: ANAM VIEIRA MD BIRTHDATE: [birth year] DOS: 01/24/2018 GASTROENDOSCOPIC REPORT INDICATIONS: A 47-year-old patient who was presented with chief complaint of right lower quadrant abdominal pain, dyspepsia, nausea. ALLERGIES: The patient is allergic to no medication. FAMILY HISTORY: Noncontributory. PAST SURGICAL HISTORY: Cholecystectomy, hysterectomy, cardiac stents x 2. PAST MEDICAL HISTORY: Obesity, anxiety, depression, diabetes mellitus. SOCIAL HISTORY: CT scan has been done in [facility] that is not available to us yet. PROCEDURE: Today's procedure part of investigation is panendoscopy and colonoscopy. PREMEDICATION: Propofol. SCOPE: Olympus forward-viewing gastroscope Q10 video. REPORT: After putting the patient in left lateral position and application of lubricant to the scope, the scope was introduced. Thereafter, under direct visualization, advanced through the length of esophagus without difficulty. Esophagus, cervical, thoracic distally within normal limit. Gastric pouch was entered. Gastritis of moderate degree noticed. Antral biopsy obtained. Duodenal bulb, second and third part within normal limit. The patient extubated, tolerated procedure well. IMPRESSION: Moderate gastritis, status post biopsy. PLAN AND DISCUSSION: The patient has been on Zantac 150 mg orally and Carafate 1 tablet at bedtime. I am going to hold both the above and we are going to start her on omeprazole 40 mg daily. Antireflux measures with elevation of the head of the bed 6 inches all time and I am going to proceed with colonoscopy. COLONOSCOPY INDICATIONS: The patient has presented with right lower quadrant pain, undergoing investigation. PROCEDURE: Today's procedure part of investigation is colonoscopy plus piecemeal polypectomy. PREMEDICATION: Propofol. [place], [place] OPERATIVE NOTE NAME: MELISSA ROBBINS UNIT #: [id number] ROOM: DOCTOR[facility] [birth year] SCOPE: Olympus forward-viewing colonoscope 10L video. REPORT: After putting the patient in left lateral position and application of lubricant to rectal pouch and digital examination, scope was introduced. Thereafter, under direct visualization, advanced through the length of colon without difficulty. Colon mucosa and vascularity carefully examined. Base of the cecum explored, appendiceal orifice identified, ileocecal valve was defined. Photographic series obtained. Air was suctioned out, scope was withdrawn to about sigmoid colon, a sessile polypoid lesion with piecemeal polypectomy removed. Air was suctioned out. The patient was extubated, tolerated the procedure well. IMPRESSION: Sessile colonic polyp, sigmoid colon, status post piecemeal polypectomy. PLAN: High fiber fruit diet, low fat diet. We are still awaiting the CT scan result from [facility]. She is advised to see if she can seek that records from medical record and otherwise clinically we will reassess the patient. I thank you very much indeed for your kind referral. The patient advised to have a routine followup with you in office. Workup in progress. ANAM VIEIRA MD CM:OPRECORD:OPERATIVE NOTE 0810 0835 ANAM VIEIRA MD 01/24/18 0833 interface
[2018-01-24 07:28] VITALS: BP 163/94
[2018-01-24 08:05] VITALS: BP 108/62
[2018-01-24 08:20] VITALS: BP 128/83
[2018-01-24 08:35] VITALS: BP 133/81
== END | disposition home or self-care (01) ==
LOC: SDC 01-18 08:45
DX: D12.5 Benign neoplasm of sigmoid colon (principal); K29.50 Unspecified chronic gastritis without bleeding; E11.9 Type 2 diabetes mellitus without complications; I25.10 Atherosclerotic heart disease of native coronary artery without angina pectoris; M17.12 Unilateral primary osteoarthritis, left knee; F32.9 Major depressive disorder, single episode, unspecified; F41.9 Anxiety disorder, unspecified; E66.01 Morbid (severe) obesity due to excess calories; E66.09 Other obesity due to excess calories; Z90.710 Acquired absence of both cervix and uterus; Z90.49 Acquired absence of other specified parts of digestive tract; Z95.5 Presence of coronary angioplasty implant and graft; Z79.899 Other long term (current) drug therapy; Z82.3 Family history of stroke; Z82.49 Family history of ischemic heart disease and other diseases of the circulatory system; Z68.34 Body mass index [BMI] 34.0-34.9, adult

== ENCOUNTER 2018-02-06 13:37 | Inpatient (IN) | payer OTHER ==
[~2018-02-06] VITALS: Ht 157.4 cm; Wt 100.7 kg
--- NOTE | ~2018-02-06 | EKG ---
[place], [place] ELECTROCARDIOGRAM REPORT NAME: MELISSA ROBBINS UNIT #: [id number] ROOM: 532 DOCTOR: BALDEMAR DRAFT REPORT BIRTHDATE: [birth year] [facility] Test Date: 2018-02-06 Test Time: 16:53:03 Pat Name: MELISSA ROBBINS Department: Room: Gender: F Civil Engineer: OLIVA : 1970 Requested By: JENNA HENDRICKS Order Number: [id number] Reading MD: Regulo hCicas MD Measurements Intervals [place] Rate: 59 P: 42 NC: 111 QRS: 16 QRSD: 102 T: 19 QT: 473 QTc: 469 Interpretive Statements Sinus rhythm Borderline short NC interval Electronically Signed On 02-08-2018 11:30:11 PDT by Regulo Chicas MD CM:EKGRPT:ELECTROCARDIOGRAM REPORT 1653 1130 JENNA BADILLO DRAFT REPORT JENNA HENDRICKS DO
--- NOTE | ~2018-02-06 | EKG ---
[place], [place] ELECTROCARDIOGRAM REPORT NAME: MELISSA ROBBINS UNIT #: [id number] ROOM: 532 DOCTOR: BALDEMAR DRAFT REPORT BIRTHDATE: [birth year] [facility] Test Date: 2018-02-06 Test Time: 19:55:44 Pat Name: MELISSA ROBBINS Department: Room: Gender: F Customer Engagement Specialist: OLIVA : 1970 Requested By: JENNA HENDRICKS Order Number: [id number] Reading MD: Regulo Chicas MD Measurements Intervals [place] Rate: 59 P: 51 RI: 119 QRS: 23 QRSD: 98 T: 23 QT: 457 QTc: 453 Interpretive Statements Sinus rhythm Borderline short RI interval Electronically Signed On 02-08-2018 11:30:27 PDT by Regulo Chicas MD CM:EKGRPT:ELECTROCARDIOGRAM REPORT 54 1130 JENNA BADILLO DRAFT REPORT JENNA HENDRICKS DO
--- NOTE | ~2018-02-06 | CON ---
[place], [place] REPORT OF CONSULTATION NAME: MELISSA ROBBINS UNIT #: [id number] ROOM: 532 DOCTOR: ANA BABIN MD BIRTHDATE: [birth year] DOS: 02/07/2018 HISTORY OF PRESENT ILLNESS: The patient well known to me with a history of previous coronary artery disease, stent placement in 2014. Admitted with left-sided precordial chest discomfort. The patient does have a history of diabetes mellitus and hypertension. The patient is alert, oriented x 3, no acute EKG changes suggestion of myocardial injury or infarction. Right now, she is chest pain free. PAST MEDICAL HISTORY: Hypertension, hyperlipidemia, coronary artery disease, diabetes mellitus, morbid obesity, metabolic syndrome. PAST SURGICAL HISTORY: Esophagoduodenoscopy, endometrial ablation, cervical biopsy, cardiac catheterization and stent placement. SOCIAL HISTORY: Nondrinker, does not use any drugs. Former smoker. HOME MEDICATIONS: Lasix, metformin, omeprazole, and potassium. REVIEW OF SYSTEMS: CONSTITUTIONAL: No fever, no chills. HEENT: Unremarkable. NECK: Supple, no JVD. LUNGS: Clear. REVIEW OF SYSTEMS: CONSTITUTIONAL: No fever, no chills. HEENT: No visual disturbances. CARDIOVASCULAR: As per HPI. GASTROINTESTINAL: No nausea, no vomiting. GENITOURINARY: No dysuria. NEUROLOGIC: No syncope. All other review of systems are negative. PHYSICAL EXAMINATION: GENERAL: The patient is alert, oriented x 3. VITAL SIGNS: Blood pressure is 120/70. The patient is in sinus rhythm. NECK: Supple, no JVD. LUNGS: Clear. HEART: Heart sounds are regular. ABDOMEN: Soft, nontender. NEUROLOGICAL: Stable. LABORATORY DATA: Electrolytes are normal. LDL is 114, hemoglobin 13.6, hematocrit 41.4, electrolytes are normal. INR is normal. EKG sinus with nonspecific ST-T changes. IMPRESSION: The patient with known history of coronary artery disease, stent placement, diabetes, looks like she did have another catheterization in May, which was unremarkable with the stent patent. No acute EKG changes. [place], [place] REPORT OF CONSULTATION NAME: MELISSA ROBBINS UNIT #: [id number] ROOM: 532 DOCTOR: ANA BABIN MD BIRTHDATE: [birth year] Cardiac enzymes are all been negative. RECOMMENDATIONS: Add isosorbide to the current regimen. Schedule a stress test and we will closely follow up. ANA BABIN MD CM:CONSTR:REPORT OF CONSULTATION 1803 02/08/18 0136 interface
--- NOTE | ~2018-02-06 | EKG ---
[place], [place] ELECTROCARDIOGRAM REPORT NAME: MELISSA ROBBINS UNIT #: [id number] ROOM: 532 DOCTOR: BALDEMAR DRAFT REPORT BIRTHDATE: [birth year] [facility] Test Date: 2018-02-06 Test Time: 13:40:22 Pat Name: MELISSA ROBBINS Department: Room: Gender: F Senior Energy Consultant: : 1970 Requested By: JENNA HENDRICKS Order Number: [id number] Reading MD: Regulo Chicas MD Measurements Intervals [place] Rate: 77 P: 58 NE: 116 QRS: 23 QRSD: 78 T: 29 QT: 407 QTc: 461 Interpretive Statements Sinus rhythm Borderline short NE interval Low voltage, precordial leads Electronically Signed On 02-08-2018 11:29:31 PDT by Regulo Chicas MD CM:EKGRPT:ELECTROCARDIOGRAM REPORT 1340 1129 JENNA BADILLO DRAFT REPORT JENNA HENDRICKS DO
[~2018-02-06 13:37] MED LIST changes: -GLUCOPHAGE500 M1 PO
[2018-02-06 13:38] VITALS: BP 166/108
[2018-02-06 14:07] LABS: BASO % 0.3 % (0.0-1.0); EOS # 0.1 10*3/uL (0.0-0.4); EOS % 1.3 % (1.0-4.0); HEMATOCRIT 41.1 % (37.0-47.0); HEMOGLOBIN 13.9 g/dl (12.0-16.0); LYMPH # 2.3 10*3/uL (1.3-4.4); LYMPH % 34.9 % (27.0-41.0); MEAN CELL VOLUME 84.6 fl (81.0-99.0); MEAN CORPUSCULAR HGB 28.6 pg (27.0-31.0); MEAN CORPUSCULAR HGB CONC 33.8 g/dl (33.0-37.0); MEAN PLATELET VOLUME 9.3 fl (9.6-12.3); MONO # 0.4 10*3/uL (0.1-1.0); MONO % 5.5 % (3.0-9.0); NEUT # 3.8 10*3/uL (2.3-7.9); NEUT % 57.4 % (47.0-73.0); PLATELET COUNT AUTOMATED 299 10*3/uL (130-400); RED BLOOD COUNT 4.86 10*6/uL (4.10-5.10); WHITE BLOOD COUNT 6.7 10*3/uL (4.8-10.8)
[2018-02-06 14:13] LABS: ACT PARTIAL THROMBO TIME 23.5 SECONDS (20.8-31.5)
[2018-02-06 14:27] LABS: ALBUMIN 3.5 gm/dl (3.1-4.5); ALKALINE PHOSPHATASE 76 U/L (45-117); BUN 11 mg/dl (7-24); CHLORIDE 107 mmol/L (98-107); CREATININE 0.79 mg/dL (0.55-1.02); POTASSIUM 3.7 mmol/L (3.5-5.1); SGOT/AST 14 IU/L (3-35); SGPT/ALT 23 U/L (12-78); SODIUM 140 mmol/L (136-145); TOTAL PROTEIN 7.6 gm/dL (6.4-8.2)
[2018-02-06 14:33] VITALS: BP 160/92
[2018-02-06 14:37] LABS: TROPONIN I < 0.015 ng/ml (<0.045)
[2018-02-06 15:44] VITALS: BP 132/86
[2018-02-06 16:00] VITALS: BP 142/88
[2018-02-06 20:00] VITALS: BP 130/76
[2018-02-07] VITALS: BP 105/46
[2018-02-07 06:23] LABS: BASO % 0.3 % (0.0-1.0); EOS # 0.1 10*3/uL (0.0-0.4); EOS % 1.4 % (1.0-4.0); HEMATOCRIT 41.4 % (37.0-47.0); HEMOGLOBIN 13.6 g/dl (12.0-16.0); LYMPH # 2.5 10*3/uL (1.3-4.4); LYMPH % 39.6 % (27.0-41.0); MEAN CELL VOLUME 86.3 fl (81.0-99.0); MEAN CORPUSCULAR HGB 28.3 pg (27.0-31.0); MEAN CORPUSCULAR HGB CONC 32.9 g/dl (33.0-37.0); MEAN PLATELET VOLUME 9.5 fl (9.6-12.3); MONO # 0.4 10*3/uL (0.1-1.0); MONO % 6.1 % (3.0-9.0); NEUT # 3.4 10*3/uL (2.3-7.9); NEUT % 52.3 % (47.0-73.0); PLATELET COUNT AUTOMATED 256 10*3/uL (130-400); RED CELL DISTRI WIDTH 13.1 % (0-14.5); WHITE BLOOD COUNT 6.4 10*3/uL (4.8-10.8)
[2018-02-07 06:51] LABS: BUN 12 mg/dl (7-24); CHLORIDE 104 mmol/L (98-107); CHOLESTEROL 213 mg/dL (<200); CREATININE 0.75 mg/dL (0.55-1.02); POTASSIUM 3.5 mmol/L (3.5-5.1); SODIUM 139 mmol/L (136-145); TRIGLYCERIDES 353 mg/dl (<150); VLDL CHOLESTEROL 71 mg/dL (6-40)
[2018-02-07 06:58] LABS: FREE T4 1.13 ng/dl (0.76-1.46); HDL CHOLESTEROL 28 mg/dl (40-60); LDL CHOLESTEROL 114 mg/dL (9-159)
[2018-02-07 08:00] VITALS: BP 138/82
[2018-02-07 12:00] VITALS: BP 136/71
[2018-02-07 16:00] VITALS: BP 105/59
[2018-02-07 20:00] VITALS: BP 113/65
[2018-02-07] MEDS ORDERED: IMDUR SA30 MG PO (20:13)
[2018-02-20] MEDS ORDERED: GLUCOPHAGE500 M1 PO (06:09)
== END 2018-02-07 20:51 | disposition home or self-care (01) | DRG 205 ==
LOC: ED 13:37 → EDHOLD 15:27 → 5E 15:27 → EDHOLD 15:50 → 5E 15:56
PROVIDERS: Emergency Medicine; Internal Medicine
DX: M94.0 Chondrocostal junction syndrome [Tietze] (principal); J18.9 Pneumonia, unspecified organism; E11.69 Type 2 diabetes mellitus with other specified complication; E66.01 Morbid (severe) obesity due to excess calories; I25.10 Atherosclerotic heart disease of native coronary artery without angina pectoris; E88.81 Metabolic syndrome and other insulin resistance; H50.9 Unspecified strabismus; Z95.5 Presence of coronary angioplasty implant and graft; R10.13 Epigastric pain; R79.82 Elevated C-reactive protein (CRP); R79.89 Other specified abnormal findings of blood chemistry; K21.9 Gastro-esophageal reflux disease without esophagitis; E78.00 Pure hypercholesterolemia, unspecified; I10 Essential (primary) hypertension; F41.9 Anxiety disorder, unspecified; E55.9 Vitamin D deficiency, unspecified; E53.8 Deficiency of other specified B group vitamins; E78.5 Hyperlipidemia, unspecified; G89.29 Other chronic pain; R10.9 Unspecified abdominal pain; K59.00 Constipation, unspecified; Z90.710 Acquired absence of both cervix and uterus; Z90.721 Acquired absence of ovaries, unilateral; Z79.899 Other long term (current) drug therapy; Z79.82 Long term (current) use of aspirin; Z90.49 Acquired absence of other specified parts of digestive tract; Z98.51 Tubal ligation status; Z87.891 Personal history of nicotine dependence; Z83.3 Family history of diabetes mellitus; Z82.49 Family history of ischemic heart disease and other diseases of the circulatory system; Z82.3 Family history of stroke; Z83.1 Family history of other infectious and parasitic diseases; Z68.34 Body mass index [BMI] 34.0-34.9, adult

== ENCOUNTER → 2018-02-20 | Outpatient (CLI) | payer OTHER ==
[~2018-02-20] MED LIST changes: +GLUCOPHAGE500 M1 PO
--- NOTE | ~2018-02-20 | ST ---
[place], [place] EXERCISE STRESS TEST REPORT [id number] UNIT #: [id number] ROOM: DOCTOR: ANA BABIN MD BIRTHDATE: [birth year] DOS: 02/20/2018 Baseline cardiogram sinus rhythm with nonspecific ST-T changes. The patient had a constant chest pain, 0.4 mg Lexiscan, duration of 10 seconds. With Lexiscan, no new EKG changes. No chest pain, unchanged EKG. Blood pressure and heart rate response normal. Nuclear images will be reported separately. ANA BABIN MD CM:STRESS:EXERCISE STRESS TEST REPORT 4 1 ANA BABIN MD
== END | disposition home or self-care (01) ==
LOC: CARD 03:27
DX: R07.2 Precordial pain (principal)

== ENCOUNTER 2018-02-26 11:54 | Emergency (ER) | payer OTHER ==
[~2018-02-26] VITALS: Ht 157.4 cm; Wt 102.1 kg
[2018-02-26 12:08] VITALS: BP 120/63
[2018-02-26 12:23] LABS: BASO % 0.3 % (0.0-1.0); EOS # 0.1 10*3/uL (0.0-0.4); EOS % 1.3 % (1.0-4.0); HEMATOCRIT 41.4 % (37.0-47.0); HEMOGLOBIN 13.8 g/dl (12.0-16.0); LYMPH # 2.1 10*3/uL (1.3-4.4); LYMPH % 34.4 % (27.0-41.0); MEAN CELL VOLUME 86.3 fl (81.0-99.0); MEAN CORPUSCULAR HGB 28.8 pg (27.0-31.0); MEAN CORPUSCULAR HGB CONC 33.3 g/dl (33.0-37.0); MEAN PLATELET VOLUME 9.1 fl (9.6-12.3); MONO # 0.3 10*3/uL (0.1-1.0); MONO % 5.4 % (3.0-9.0); NEUT # 3.6 10*3/uL (2.3-7.9); NEUT % 58.4 % (47.0-73.0); PLATELET COUNT AUTOMATED 288 10*3/uL (130-400); RED CELL DISTRI WIDTH 13.2 % (0-14.5); WHITE BLOOD COUNT 6.1 10*3/uL (4.8-10.8)
[2018-02-26 12:26] LABS: BILIRUBIN NEGATIVE (NEGATIVE); BLOOD NEGATIVE (NEGATIVE); CLARITY CLEAR (CLEAR); COLOR YELLOW (YELLOW); GLUCOSE NEGATIVE (NEGATIVE); KETONE NEGATIVE (NEGATIVE); LEUKO ESTERASE NEGATIVE (NEGATIVE); NITRITE NEGATIVE (NEGATIVE); UROBILINOGEN 0.2 E.U./dl (0.2-1.0)
[2018-02-26 12:41] LABS: ALBUMIN 3.6 gm/dl (3.1-4.5); ALKALINE PHOSPHATASE 75 U/L (45-117); BUN 11 mg/dl (7-24); CHLORIDE 105 mmol/L (98-107); LIPASE 193 U/L (73-393); POTASSIUM 4.1 mmol/L (3.5-5.1); SGOT/AST 17 IU/L (3-35); SGPT/ALT 27 U/L (12-78); SODIUM 141 mmol/L (136-145); TOTAL PROTEIN 7.7 gm/dL (6.4-8.2)
[2018-02-26 12:47] LABS: BACTERIA 2+; RBC 0-2 rbc/hpf (0-2)
== END 2018-02-26 13:42 | disposition home or self-care (01) ==
LOC: ED 11:54
PROVIDERS: Emergency Medicine
DX: G89.29 Other chronic pain (principal); R10.9 Unspecified abdominal pain; E11.9 Type 2 diabetes mellitus without complications; I10 Essential (primary) hypertension; K21.9 Gastro-esophageal reflux disease without esophagitis; E78.00 Pure hypercholesterolemia, unspecified; Z79.899 Other long term (current) drug therapy; Z79.82 Long term (current) use of aspirin; Z87.891 Personal history of nicotine dependence

== ENCOUNTER 2018-04-15 12:47 | Emergency (ER) | payer OTHER ==
[~2018-04-15] VITALS: Ht 157.4 cm; Wt 97.1 kg
[2018-04-15 14:33] VITALS: BP 163/94
[2018-04-15] MEDS ORDERED: AMOXICILLIN500 M2 PO (14:54)
[2018-04-15] MEDS ORDERED: PREDNISONE20 M1 PO (14:54)
[2018-06-19] MEDS ORDERED: AMOXICILLIN500 M2 PO (20:33)
[2018-06-19] MEDS ORDERED: NAPROSYN500 MG PO (20:33)
== END 2018-04-15 15:00 | disposition home or self-care (01) ==
LOC: ED 12:47
DX: J20.9 Acute bronchitis, unspecified (principal); Z79.899 Other long term (current) drug therapy; Z79.82 Long term (current) use of aspirin; Z87.891 Personal history of nicotine dependence

== ENCOUNTER → 2018-05-04 | Outpatient (CLI) | payer OTHER ==
[~2018-05-04] MED LIST changes: +AMOXICILLIN500 M2 PO; +LISINOPRIL20 MG PO; +PREDNISONE20 M1 PO; +SIMVASTATIN20 MG PO
== END | disposition home or self-care (01) ==
LOC: US 09:59
DX: K76.0 Fatty (change of) liver, not elsewhere classified (principal); N20.0 Calculus of kidney

== ENCOUNTER → 2018-06-05 | Outpatient (CLI) | payer OTHER | END | disposition home or self-care (01) | LOC: CT 15:04 | DX: R91.1 Solitary pulmonary nodule (principal); I10 Essential (primary) hypertension; Z90.49 Acquired absence of other specified parts of digestive tract ==

== ENCOUNTER 2018-06-24 14:55 | Inpatient (IN) | payer OTHER ==
[~2018-06-24] VITALS: Ht 157.4 cm; Wt 104.5 kg
--- NOTE | ~2018-06-24 | EKG ---
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1970 Requested By: MERLY JAY Order Number: [id number] Reading MD: Regulo Chicas MD Measurements Intervals [place] Rate: 71 P: 187 [place]: 118 QRS: -28 QRSD: 62 T: QT: 526 QTc: 572 Interpretive Statements Sinus or ectopic atrial rhythm Borderline short [place] interval Inferior infarct, old Lateral leads are also involved Prolonged QT interval Compared to ECG 02/06/2018 19:55:44 Ectopic atrial rhythm now present Myocardial infarct finding now present Prolonged QT interval now present Sinus rhythm no longer present Electronically Signed On 06-25-2018 8:12:00 PST by Regulo Chicas MD CM:EKGRPT:ELECTROCARDIOGRAM REPORT [id number] MERLY MCDERMOTT DRAFT REPORT MERLY JAY MD
--- NOTE | ~2018-06-24 | EKG ---
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
--- NOTE | ~2018-06-24 | EKG ---
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
[~2018-06-24 14:55] MED LIST changes: -LISINOPRIL20 MG PO; -SIMVASTATIN20 MG PO
[2018-06-24 15:00] VITALS: BP 142/89
[2018-06-24 15:10] LABS: BASO % 0.3 % (0.0-1.0); EOS # 0.1 10*3/uL (0.0-0.4); EOS % 1.8 % (1.0-4.0); HEMATOCRIT 40.4 % (37.0-47.0); HEMOGLOBIN 13.8 g/dl (12.0-16.0); LYMPH % 33.6 % (27.0-41.0); MEAN CELL VOLUME 86.3 fl (81.0-99.0); MEAN CORPUSCULAR HGB 29.5 pg (27.0-31.0); MEAN CORPUSCULAR HGB CONC 34.2 g/dl (33.0-37.0); MEAN PLATELET VOLUME 9.5 fl (9.6-12.3); MONO # 0.4 10*3/uL (0.1-1.0); MONO % 6.9 % (3.0-9.0); NEUT # 3.5 10*3/uL (2.3-7.9); NEUT % 57.1 % (47.0-73.0); PLATELET COUNT AUTOMATED 292 10*3/uL (130-400); RED BLOOD COUNT 4.68 10*6/uL (4.10-5.10); RED CELL DISTRI WIDTH 13.7 % (0-14.5); WHITE BLOOD COUNT 6.1 10*3/uL (4.8-10.8)
[2018-06-24] MEDS ORDERED: SIMVASTATIN20 MG PO (15:18)
[2018-06-24] MEDS ORDERED: OMEPRAZOLE40 MG PO (15:18)
[2018-06-24] MEDS ORDERED: LISINOPRIL20 MG PO (15:18)
[2018-06-24 15:19] LABS: ACT PARTIAL THROMBO TIME 23.5 SECONDS (20.8-31.5)
[2018-06-24 15:25] LABS: ALBUMIN 3.6 gm/dl (3.1-4.5); ALKALINE PHOSPHATASE 66 U/L (45-117); BUN 13 mg/dl (7-24); CHLORIDE 110 mmol/L (98-107); CREATININE 0.68 mg/dL (0.55-1.02); POTASSIUM 3.6 mmol/L (3.5-5.1); SGOT/AST 19 IU/L (3-35); SGPT/ALT 28 U/L (12-78); SODIUM 143 mmol/L (136-145); TOTAL PROTEIN 7.4 gm/dL (6.4-8.2)
[2018-06-24 15:29] LABS: TROPONIN I < 0.015 ng/ml (<0.045)
[2018-06-24 18:00] VITALS: BP 125/87
[2018-06-24 20:00] VITALS: BP 104/64
[2018-06-24 20:45] VITALS: BP 106/64
[2018-06-25] VITALS: BP 125/77
[2018-06-25 06:36] LABS: BASO % 0.2 % (0.0-1.0); EOS # 0.2 10*3/uL (0.0-0.4); EOS % 2.8 % (1.0-4.0); HEMATOCRIT 37.7 % (37.0-47.0); HEMOGLOBIN 12.2 g/dl (12.0-16.0); LYMPH # 2.4 10*3/uL (1.3-4.4); LYMPH % 45.4 % (27.0-41.0); MEAN CELL VOLUME 87.7 fl (81.0-99.0); MEAN CORPUSCULAR HGB 28.4 pg (27.0-31.0); MEAN CORPUSCULAR HGB CONC 32.4 g/dl (33.0-37.0); MEAN PLATELET VOLUME 9.7 fl (9.6-12.3); MONO # 0.4 10*3/uL (0.1-1.0); MONO % 6.7 % (3.0-9.0); NEUT # 2.4 10*3/uL (2.3-7.9); NEUT % 44.5 % (47.0-73.0); PLATELET COUNT AUTOMATED 240 10*3/uL (130-400); RED CELL DISTRI WIDTH 13.6 % (0-14.5); WHITE BLOOD COUNT 5.4 10*3/uL (4.8-10.8)
[2018-06-25 06:46] LABS: BUN 13 mg/dl (7-24); CHLORIDE 111 mmol/L (98-107); CHOLESTEROL 158 mg/dL (<200); CREATININE 0.63 mg/dL (0.55-1.02); PHOSPHOROUS 4.2 mg/dL (2.5-4.9); POTASSIUM 3.5 mmol/L (3.5-5.1); SODIUM 145 mmol/L (136-145); TRIGLYCERIDES 306 mg/dl (<150); VLDL CHOLESTEROL 61 mg/dL (6-40)
[2018-06-25 06:55] LABS: HDL CHOLESTEROL 25 mg/dl (40-60); LDL CHOLESTEROL 72 mg/dL (9-159); THYROID STIM HORMONE (HS) 0.964 uIU/ml (0.358-4.75)
[2018-06-25 07:47] LABS: VITAMIN D, 25-HYDROXY 28.1 ng/mL (30-100)
== END 2018-06-25 10:30 | disposition home or self-care (01) | DRG 641 ==
LOC: ED 14:55 → 5E 16:27 → EDHOLD 16:27 → 5E 16:57
PROVIDERS: Emergency Medicine; Student in an Organized Health Care Education/Training Program
DX: E86.0 Dehydration (principal); Z68.41 Body mass index [BMI] 40.0-44.9, adult; F41.9 Anxiety disorder, unspecified; E83.41 Hypermagnesemia; K21.9 Gastro-esophageal reflux disease without esophagitis; I25.118 Atherosclerotic heart disease of native coronary artery with other forms of angina pectoris; I10 Essential (primary) hypertension; E66.01 Morbid (severe) obesity due to excess calories; E11.69 Type 2 diabetes mellitus with other specified complication; E11.65 Type 2 diabetes mellitus with hyperglycemia; E78.5 Hyperlipidemia, unspecified; Z72.0 Tobacco use; Z71.6 Tobacco abuse counseling; Z95.5 Presence of coronary angioplasty implant and graft; Z90.710 Acquired absence of both cervix and uterus; Z90.721 Acquired absence of ovaries, unilateral; Z90.79 Acquired absence of other genital organ(s); Z90.49 Acquired absence of other specified parts of digestive tract; Z98.51 Tubal ligation status; Z83.3 Family history of diabetes mellitus; Z82.49 Family history of ischemic heart disease and other diseases of the circulatory system; Z82.3 Family history of stroke; Z79.82 Long term (current) use of aspirin; Z79.899 Other long term (current) drug therapy; Z79.02 Long term (current) use of antithrombotics/antiplatelets

== ENCOUNTER 2018-07-25 17:52 | Emergency (ER) | payer OTHER ==
[~2018-07-25] VITALS: Ht 157.4 cm; Wt 117.9 kg
[~2018-07-25 17:52] MED LIST changes: +LISINOPRIL20 MG PO; +SIMVASTATIN20 MG PO
[2018-07-25 18:32] LABS: BILIRUBIN NEGATIVE (NEGATIVE); BLOOD NEGATIVE (NEGATIVE); CLARITY SL CLOUDY (CLEAR); COLOR YELLOW (YELLOW); GLUCOSE NEGATIVE (NEGATIVE); KETONE NEGATIVE (NEGATIVE); LEUKO ESTERASE NEGATIVE (NEGATIVE); NITRITE NEGATIVE (NEGATIVE); SPECIFIC GRAVITY 1.025 (1.005-1.030)
[2018-07-25 18:33] LABS: BASO % 0.3 % (0.0-1.0); EOS # 0.1 10*3/uL (0.0-0.4); EOS % 1.7 % (1.0-4.0); HEMATOCRIT 39.7 % (37.0-47.0); HEMOGLOBIN 13.3 g/dl (12.0-16.0); LYMPH # 2.1 10*3/uL (1.3-4.4); LYMPH % 30.7 % (27.0-41.0); MEAN CELL VOLUME 86.3 fl (81.0-99.0); MEAN CORPUSCULAR HGB 28.9 pg (27.0-31.0); MEAN CORPUSCULAR HGB CONC 33.5 g/dl (33.0-37.0); MEAN PLATELET VOLUME 9.5 fl (9.6-12.3); MONO # 0.5 10*3/uL (0.1-1.0); MONO % 7.3 % (3.0-9.0); NEUT # 4.1 10*3/uL (2.3-7.9); NEUT % 59.6 % (47.0-73.0); PLATELET COUNT AUTOMATED 302 10*3/uL (130-400); RED CELL DISTRI WIDTH 13.7 % (0-14.5); WHITE BLOOD COUNT 6.9 10*3/uL (4.8-10.8)
[2018-07-25 18:44] LABS: BACTERIA TRACE
[2018-07-25 18:50] LABS: ALBUMIN 3.3 gm/dl (3.1-4.5); ALKALINE PHOSPHATASE 78 U/L (45-117); BUN 13 mg/dl (7-24); CHLORIDE 108 mmol/L (98-107); CREATININE 0.75 mg/dL (0.55-1.02); LIPASE 160 U/L (73-393); SGOT/AST 23 IU/L (3-35); SGPT/ALT 30 U/L (12-78); SODIUM 141 mmol/L (136-145); TOTAL PROTEIN 7.5 gm/dL (6.4-8.2)
[2018-07-25 20:15] VITALS: BP 111/678
[2018-07-25] MEDS ORDERED: ZANTAC 150150 MG PO (20:43)
== END 2018-07-25 20:45 | disposition home or self-care (01) ==
LOC: ED 17:52
PROVIDERS: Physician Assistant
DX: K29.70 Gastritis, unspecified, without bleeding (principal); F17.200 Nicotine dependence, unspecified, uncomplicated; Z79.899 Other long term (current) drug therapy; Z79.82 Long term (current) use of aspirin; Z79.84 Long term (current) use of oral hypoglycemic drugs; Z90.710 Acquired absence of both cervix and uterus; Z90.49 Acquired absence of other specified parts of digestive tract

== ENCOUNTER 2020-12-24 19:43 | Emergency (ER) | payer OTHER ==
[~2020-12-24] VITALS: Ht 157.4 cm; Wt 127.5 kg
[2020-12-24 20:00] VITALS: BP 156/78
[2020-12-24 20:29] LABS: BASO % 0.4 % (0.0-1.0); EOS # 0.1 10*3/uL (0.0-0.4); HEMATOCRIT 36.7 % (37.0-47.0); LYMPH # 2.3 10*3/uL (1.3-4.4); LYMPH % 31.5 % (27.0-41.0); MEAN CELL VOLUME 89.7 fl (81.0-99.0); MEAN CORPUSCULAR HGB 29.3 pg (27.0-31.0); MEAN CORPUSCULAR HGB CONC 32.7 g/dl (33.0-37.0); MEAN PLATELET VOLUME 9.2 fl (9.6-12.3); MONO # 0.5 10*3/uL (0.1-1.0); MONO % 6.9 % (3.0-9.0); NEUT # 4.4 10*3/uL (2.3-7.9); NEUT % 59.7 % (47.0-73.0); PLATELET COUNT AUTOMATED 329 10*3/uL (130-400); RED BLOOD COUNT 4.09 10*6/uL (4.10-5.10); RED CELL DISTRI WIDTH 13.5 % (0-14.5); WHITE BLOOD COUNT 7.3 10*3/uL (4.8-10.8)
[2020-12-24 20:45] LABS: ALBUMIN 3.3 gm/dl (3.1-4.5); ALKALINE PHOSPHATASE 64 U/L (45-117); BUN 12 mg/dl (7-24); CHLORIDE 107 mmol/L (98-107); CREATININE 0.82 mg/dL (0.55-1.02); LIPASE 226 U/L (73-393); POTASSIUM 3.5 mmol/L (3.5-5.1); SGOT/AST 22 IU/L (3-35); SGPT/ALT 38 U/L (12-78); SODIUM 139 mmol/L (136-145); TOTAL PROTEIN 7.4 gm/dL (6.4-8.2)
[2020-12-24 20:54] LABS: BILIRUBIN Negative (Negative); BLOOD Negative (Negative); CLARITY Clear (Clear); COLOR Yellow (Yellow); GLUCOSE Negative (Negative); KETONE Negative (Negative); LEUKO ESTERASE Negative (Negative); NITRITE Negative (Negative); PH 5.5 (4.5-8.0)
[2020-12-24 21:02] LABS: RBC 0-2 rbc/hpf (0-2)
[2020-12-24 21:03] LABS: BACTERIA 1+; EPITHELIAL CELLS 41-50
== END 2020-12-24 23:34 | disposition home or self-care (01) ==
LOC: ED 19:43
PROVIDERS: Physician Assistant
DX: R10.31 Right lower quadrant pain (principal); Z90.49 Acquired absence of other specified parts of digestive tract; Z90.711 Acquired absence of uterus with remaining cervical stump; Z98.51 Tubal ligation status; Z79.899 Other long term (current) drug therapy; Z79.82 Long term (current) use of aspirin; Z95.5 Presence of coronary angioplasty implant and graft; F17.200 Nicotine dependence, unspecified, uncomplicated

== ENCOUNTER → 2021-07-16 | Outpatient (CLI) | payer OTHER ==
[2021-07-16 12:11] LABS: BUN 8 mg/dl (7-24); CHLORIDE 109 mmol/L (98-107); POTASSIUM 3.4 mmol/L (3.5-5.1); SODIUM 141 mmol/L (136-145)
== END ==
LOC: LAB 10:29
PROVIDERS: ATTEND Nurse Practitioner Family
DX: E87.6 Hypokalemia (principal)

== ENCOUNTER 2021-07-17 12:37 | Emergency (ER) | payer OTHER ==
[~2021-07-17] VITALS: Wt 121.6 kg
[2021-07-17 12:43] VITALS: BP 164/95
[2021-07-17 13:34] LABS: BASO % 0.4 % (0.0-1.0); EOS # 0.1 10*3/uL (0.0-0.4); EOS % 0.8 % (1.0-4.0); HEMATOCRIT 39.6 % (37.0-47.0); LYMPH # 2.3 10*3/uL (1.3-4.4); LYMPH % 30.4 % (27.0-41.0); MEAN CELL VOLUME 87.8 fl (81.0-99.0); MEAN CORPUSCULAR HGB 27.9 pg (27.0-31.0); MEAN CORPUSCULAR HGB CONC 31.8 g/dl (33.0-37.0); MEAN PLATELET VOLUME 9.6 fl (9.6-12.3); MONO # 0.6 10*3/uL (0.1-1.0); MONO % 7.5 % (3.0-9.0); NEUT # 4.5 10*3/uL (2.3-7.9); NEUT % 60.5 % (47.0-73.0); PLATELET COUNT AUTOMATED 354 10*3/uL (130-400); RED BLOOD COUNT 4.51 10*6/uL (4.10-5.10); RED CELL DISTRI WIDTH 13.7 % (0-14.5); WHITE BLOOD COUNT 7.5 10*3/uL (4.8-10.8)
[2021-07-17 13:56] LABS: ALBUMIN 3.2 gm/dl (3.1-4.5); ALKALINE PHOSPHATASE 64 U/L (45-117); BUN 11 mg/dl (7-24); CHLORIDE 110 mmol/L (98-107); CREATININE 0.88 mg/dL (0.55-1.02); LIPASE 186 U/L (73-393); POTASSIUM 3.9 mmol/L (3.5-5.1); SGOT/AST 17 IU/L (3-35); SGPT/ALT 28 U/L (12-78); SODIUM 141 mmol/L (136-145)
[2021-07-17 16:07] LABS: BILIRUBIN Negative (Negative); BLOOD Negative (Negative); CLARITY Clear (Clear); COLOR Yellow (Yellow); GLUCOSE Negative (Negative); KETONE Negative (Negative); LEUKO ESTERASE Negative (Negative); NITRITE Negative (Negative); SPECIFIC GRAVITY 1.015 (1.001-1.030); UROBILINOGEN 0.2 E.U./dl (0.0-1.0)
[2021-07-17 16:47] LABS: EPITHELIAL CELLS 41-50; WBC 0-2 wbc/hpf (0-5)
[2021-07-17 16:48] LABS: BACTERIA 2+
== END 2021-07-17 17:36 | disposition home or self-care (01) ==
LOC: ED 12:37
PROVIDERS: Physician Assistant
DX: N23 Unspecified renal colic (principal); Z79.899 Other long term (current) drug therapy; Z79.82 Long term (current) use of aspirin

== ENCOUNTER → 2021-07-20 | Outpatient (CLI) | payer OTHER | LOC: COVID19 15:35 | PROVIDERS: ATTEND Internal Medicine | DX: U07.1 COVID-19 (principal) ==

== ENCOUNTER 2021-09-14 07:36 | Emergency (ER) | payer OTHER ==
[~2021-09-14] VITALS: Wt 117.9 kg
[2021-09-14 07:42] VITALS: BP 140/98
[2021-09-14 08:12] LABS: BILIRUBIN Negative (Negative); BLOOD Negative (Negative); CLARITY Turbid (Clear); COLOR Yellow (Yellow); GLUCOSE Negative (Negative); KETONE 1+ (Negative); LEUKO ESTERASE Trace (Negative); NITRITE Negative (Negative); SPECIFIC GRAVITY 1.025 (1.001-1.030)
[2021-09-14 08:21] LABS: BASO % 0.2 % (0.0-1.0); EOS % 0.6 % (1.0-4.0); HEMATOCRIT 39.2 % (37.0-47.0); LYMPH # 1.1 10*3/uL (1.3-4.4); LYMPH % 20.8 % (27.0-41.0); MEAN CELL VOLUME 85.2 fl (81.0-99.0); MEAN CORPUSCULAR HGB 28.5 pg (27.0-31.0); MEAN CORPUSCULAR HGB CONC 33.4 g/dl (33.0-37.0); MEAN PLATELET VOLUME 9.3 fl (9.6-12.3); MONO # 0.5 10*3/uL (0.1-1.0); NEUT # 3.6 10*3/uL (2.3-7.9); PLATELET COUNT AUTOMATED 272 10*3/uL (130-400); RED CELL DISTRI WIDTH 13.7 % (0-14.5); WHITE BLOOD COUNT 5.2 10*3/uL (4.8-10.8)
[2021-09-14 08:22] LABS: BACTERIA 3+; EPITHELIAL CELLS 16-20
[2021-09-14 08:36] LABS: ALKALINE PHOSPHATASE 78 U/L (45-117); BUN 13 mg/dl (7-24); CHLORIDE 103 mmol/L (98-107); CREATININE 0.72 mg/dL (0.55-1.02); LIPASE 149 U/L (73-393); POTASSIUM 3.2 mmol/L (3.5-5.1); SGOT/AST 28 IU/L (3-35); SGPT/ALT 34 U/L (12-78); SODIUM 136 mmol/L (136-145); TOTAL PROTEIN 7.4 gm/dL (6.4-8.2)
[2021-09-14] MEDS ORDERED: TYLENOL325 M1 PO (10:37)
[2021-09-14] MEDS ORDERED: NAPROXEN250 MG PO (10:37)
[2021-09-14] MEDS ORDERED: CYCLOBENZAPRINE10 MG PO (10:37)
== END 2021-09-14 10:55 | disposition home or self-care (01) ==
LOC: ED 07:36
PROVIDERS: Emergency Medicine
DX: M54.50 Low back pain, unspecified (principal); K21.9 Gastro-esophageal reflux disease without esophagitis; E66.01 Morbid (severe) obesity due to excess calories; E11.9 Type 2 diabetes mellitus without complications; I10 Essential (primary) hypertension; I25.10 Atherosclerotic heart disease of native coronary artery without angina pectoris; Z90.49 Acquired absence of other specified parts of digestive tract; Z87.442 Personal history of urinary calculi; Z90.710 Acquired absence of both cervix and uterus; Z79.899 Other long term (current) drug therapy; Z79.82 Long term (current) use of aspirin; Z98.51 Tubal ligation status; Z98.890 Other specified postprocedural states

== ENCOUNTER 2022-01-16 09:44 | Emergency (ER) | payer OTHER ==
[~2022-01-16] VITALS: Wt 117.9 kg
[~2022-01-16 09:44] MED LIST changes: +CYCLOBENZAPRINE10 MG PO; +NAPROXEN250 MG PO; +TYLENOL325 M1 PO
[2022-01-16 09:52] VITALS: BP 134/45
[2022-01-16] MEDS ORDERED: CLEOCIN HCL300 MG PO (12:04)
== END 2022-01-16 12:25 | disposition home or self-care (01) ==
LOC: ED 09:44
DX: L60.0 Ingrowing nail (principal); Z79.899 Other long term (current) drug therapy; Z90.710 Acquired absence of both cervix and uterus; Z90.49 Acquired absence of other specified parts of digestive tract; Z98.51 Tubal ligation status; Z98.890 Other specified postprocedural states; Z87.891 Personal history of nicotine dependence

== ENCOUNTER → 2022-06-14 | Outpatient (CLI) | payer OTHER ==
[~2022-06-14] MED LIST changes: +CLEOCIN HCL300 MG PO
== END | disposition home or self-care (01) ==
LOC: MRI 00:29
PROVIDERS: ATTEND Podiatrist
DX: M72.2 Plantar fascial fibromatosis (principal); M89.372 Hypertrophy of bone, left ankle and foot; S93.492D Sprain of other ligament of left ankle, subsequent encounter; M19.072 Primary osteoarthritis, left ankle and foot; R60.0 Localized edema; M25.572 Pain in left ankle and joints of left foot; M65.872 Other synovitis and tenosynovitis, left ankle and foot; X58.XXXD Exposure to other specified factors, subsequent encounter

== ENCOUNTER 2022-07-13 18:39 | Emergency (ER) | payer OTHER ==
[~2022-07-13] VITALS: Ht 154.9 cm; Wt 122.5 kg
[2022-07-13 20:50] LABS: BASO % 0.2 % (0.0-1.0); EOS # 0.1 10*3/uL (0.0-0.4); HEMATOCRIT 36.7 % (37.0-47.0); LYMPH # 2.3 10*3/uL (1.3-4.4); LYMPH % 38.4 % (27.0-41.0); MEAN CELL VOLUME 85.9 fl (81.0-99.0); MEAN CORPUSCULAR HGB 28.6 pg (27.0-31.0); MEAN CORPUSCULAR HGB CONC 33.2 g/dl (33.0-37.0); MEAN PLATELET VOLUME 9.3 fl (9.6-12.3); MONO # 0.5 10*3/uL (0.1-1.0); NEUT # 3.1 10*3/uL (2.3-7.9); NEUT % 52.1 % (47.0-73.0); PLATELET COUNT AUTOMATED 285 10*3/uL (130-400); RED BLOOD COUNT 4.27 10*6/uL (4.10-5.10); RED CELL DISTRI WIDTH 13.6 % (0-14.5)
[2022-07-13 21:21] LABS: ALKALINE PHOSPHATASE 81 U/L (46-116); BUN 8 mg/dl (9-23); CHLORIDE 108 mmol/L (98-107); CREATININE 0.77 mg/dL (0.55-1.02); POTASSIUM 3.2 mmol/L (3.4-5.1); SGPT/ALT 21 U/L (10-49); TOTAL PROTEIN 6.7 gm/dL (6.0-8.0)
[2022-07-13 21:22] VITALS: BP 130/68
== END 2022-07-13 22:50 | disposition home or self-care (01) ==
LOC: ED 18:39
PROVIDERS: Internal Medicine
DX: R07.89 Other chest pain (principal); E87.6 Hypokalemia; Z79.899 Other long term (current) drug therapy; Z79.82 Long term (current) use of aspirin; Z98.890 Other specified postprocedural states; Z90.49 Acquired absence of other specified parts of digestive tract; Z98.51 Tubal ligation status; Z90.710 Acquired absence of both cervix and uterus; Z87.891 Personal history of nicotine dependence

== ENCOUNTER → 2022-08-31 | Outpatient (CLI) | payer OTHER ==
[2022-08-31 09:22] LABS: BASO % 0.5 % (0.0-1.0); EOS # 0.1 10*3/uL (0.0-0.4); HEMATOCRIT 43.4 % (37.0-47.0); LYMPH # 2.2 10*3/uL (1.3-4.4); LYMPH % 36.1 % (27.0-41.0); MEAN CELL VOLUME 86.6 fl (81.0-99.0); MEAN CORPUSCULAR HGB 28.1 pg (27.0-31.0); MEAN CORPUSCULAR HGB CONC 32.5 g/dl (33.0-37.0); MEAN PLATELET VOLUME 9.5 fl (9.6-12.3); MONO # 0.4 10*3/uL (0.1-1.0); MONO % 7.3 % (3.0-9.0); NEUT # 3.3 10*3/uL (2.3-7.9); NEUT % 54.8 % (47.0-73.0); PLATELET COUNT AUTOMATED 335 10*3/uL (130-400); RED BLOOD COUNT 5.01 10*6/uL (4.10-5.10); RED CELL DISTRI WIDTH 13.2 % (0-14.5)
[2022-08-31 10:43] LABS: ALKALINE PHOSPHATASE 80 U/L (46-116); BUN 12 mg/dl (9-23); CHLORIDE 103 mmol/L (98-107); CHOLESTEROL 137 mg/dL (<200); POTASSIUM 4.1 mmol/L (3.4-5.1); SGPT/ALT 24 U/L (10-49); TOTAL PROTEIN 7.6 gm/dL (6.0-8.0); TRIGLYCERIDES 224 mg/dl (<150)
== END | disposition home or self-care (01) ==
LOC: LAB 08:59
PROVIDERS: ATTEND Student in an Organized Health Care Education/Training Program
DX: E55.9 Vitamin D deficiency, unspecified (principal); E44.1 Mild protein-calorie malnutrition; E66.01 Morbid (severe) obesity due to excess calories

== ENCOUNTER 2023-05-02 13:18 | Emergency (ER) | payer OTHER ==
[~2023-05-02] VITALS: Ht 157.4 cm; Wt 105.7 kg
[2023-05-02 13:29] VITALS: BP 145/94
[2023-05-02] MEDS ORDERED: HYDROXYZINE PAM25 M1 PO (13:30)
[2023-05-02] MEDS ORDERED: EFFEXOR XR75 M1 PO (13:31)
[2023-05-02] MEDS ORDERED: ATORVASTATIN CA40 M1 PO (13:31)
[2023-05-02] MEDS ORDERED: FAMOTIDINE40 MG PO (13:31)
[2023-05-02 14:58] LABS: BASO % 0.4 % (0.0-1.0); EOS # 0.1 10*3/uL (0.0-0.4); EOS % 0.9 % (1.0-4.0); HEMATOCRIT 40.7 % (37.0-47.0); LYMPH # 2.2 10*3/uL (1.3-4.4); LYMPH % 32.7 % (27.0-41.0); MEAN CELL VOLUME 88.9 fl (81.0-99.0); MEAN CORPUSCULAR HGB 30.1 pg (27.0-31.0); MEAN CORPUSCULAR HGB CONC 33.9 g/dl (33.0-37.0); MEAN PLATELET VOLUME 9.7 fl (9.6-12.3); MONO # 0.4 10*3/uL (0.1-1.0); NEUT # 4.1 10*3/uL (2.3-7.9); NEUT % 59.7 % (47.0-73.0); PLATELET COUNT AUTOMATED 251 10*3/uL (130-400); RED BLOOD COUNT 4.58 10*6/uL (4.10-5.10); RED CELL DISTRI WIDTH 13.3 % (0-14.5); WHITE BLOOD COUNT 6.8 10*3/uL (4.8-10.8)
[2023-05-02 15:02] LABS: BILIRUBIN Negative (Negative); BLOOD Negative (Negative); CLARITY Clear (Clear); COLOR Yellow (Yellow); GLUCOSE Negative (Negative); KETONE Trace (Negative); LEUKO ESTERASE 1+ (Negative); NITRITE Negative (Negative); PH 6.5 (4.5-8.0); SPECIFIC GRAVITY 1.025 (1.001-1.030)
[2023-05-02 15:16] LABS: BUN 13 mg/dl (9-23); CHLORIDE 107 mmol/L (98-107)
[2023-05-02 15:27] LABS: BACTERIA 2+; RBC 0-2 rbc/hpf (0-2)
[2023-05-02] MEDS ORDERED: SEPTDS PO (16:06)
== END 2023-05-02 16:35 | disposition home or self-care (01) ==
LOC: ED 13:18
PROVIDERS: Physician Assistant Medical
DX: N39.0 Urinary tract infection, site not specified (principal); N20.0 Calculus of kidney; F41.9 Anxiety disorder, unspecified; I10 Essential (primary) hypertension; K21.9 Gastro-esophageal reflux disease without esophagitis; F32.A Depression, unspecified; I25.10 Atherosclerotic heart disease of native coronary artery without angina pectoris; M19.90 Unspecified osteoarthritis, unspecified site; Z98.890 Other specified postprocedural states; Z90.710 Acquired absence of both cervix and uterus; Z95.5 Presence of coronary angioplasty implant and graft; Z90.49 Acquired absence of other specified parts of digestive tract; Z98.51 Tubal ligation status; Z72.0 Tobacco use

== ENCOUNTER 2023-05-05 18:52 | Emergency (ER) | payer OTHER ==
[~2023-05-05] VITALS: Ht 157.4 cm; Wt 104.3 kg
[~2023-05-05 18:52] MED LIST changes: +ATORVASTATIN CA40 M1 PO; +FAMOTIDINE40 MG PO; +HYDROXYZINE PAM25 M1 PO
[2023-05-05 19:21] LABS: BASO % 0.3 % (0.0-1.0); EOS % 0.4 % (1.0-4.0); HEMATOCRIT 42.1 % (37.0-47.0); LYMPH # 2.6 10*3/uL (1.3-4.4); LYMPH % 23.8 % (27.0-41.0); MEAN CORPUSCULAR HGB 30.8 pg (27.0-31.0); MEAN CORPUSCULAR HGB CONC 34.2 g/dl (33.0-37.0); MEAN PLATELET VOLUME 9.9 fl (9.6-12.3); MONO # 0.5 10*3/uL (0.1-1.0); NEUT # 7.6 10*3/uL (2.3-7.9); PLATELET COUNT AUTOMATED 331 10*3/uL (130-400); RED BLOOD COUNT 4.68 10*6/uL (4.10-5.10); RED CELL DISTRI WIDTH 13.6 % (0-14.5); WHITE BLOOD COUNT 10.8 10*3/uL (4.8-10.8)
[2023-05-05 19:40] LABS: POTASSIUM 3.8 mmol/L (3.4-5.1); TOTAL PROTEIN 7.5 gm/dL (6.0-8.0)
[2023-05-05] MEDS ORDERED: NEO-SYNEPHRINE1516 NAS (20:32)
[2023-05-05 22:26] VITALS: BP 124/88
== END 2023-05-05 22:14 | disposition home or self-care (01) ==
LOC: ED 18:52
PROVIDERS: Emergency Medicine
DX: R07.89 Other chest pain (principal); M54.9 Dorsalgia, unspecified; R00.2 Palpitations; F41.9 Anxiety disorder, unspecified; I10 Essential (primary) hypertension; K21.9 Gastro-esophageal reflux disease without esophagitis; F32.A Depression, unspecified; I25.10 Atherosclerotic heart disease of native coronary artery without angina pectoris; M19.90 Unspecified osteoarthritis, unspecified site; E11.9 Type 2 diabetes mellitus without complications; Z98.890 Other specified postprocedural states; Z90.49 Acquired absence of other specified parts of digestive tract; Z98.51 Tubal ligation status; Z90.710 Acquired absence of both cervix and uterus; Z95.5 Presence of coronary angioplasty implant and graft; Z72.0 Tobacco use

== ENCOUNTER 2023-07-22 21:19 | Emergency (ER) | payer OTHER ==
[~2023-07-22] VITALS: Ht 157.4 cm; Wt 101.2 kg
[~2023-07-22 21:19] MED LIST changes: +NEO-SYNEPHRINE1516 NAS
[2023-07-22 21:33] VITALS: BP 107/53
[2023-07-22 21:39] LABS: BASO % 0.3 % (0.0-1.0); EOS # 0.1 10*3/uL (0.0-0.4); EOS % 0.8 % (1.0-4.0); HEMATOCRIT 40.3 % (37.0-47.0); LYMPH # 3.2 10*3/uL (1.3-4.4); LYMPH % 35.9 % (27.0-41.0); MEAN CELL VOLUME 91.4 fl (81.0-99.0); MEAN CORPUSCULAR HGB 29.5 pg (27.0-31.0); MEAN CORPUSCULAR HGB CONC 32.3 g/dl (33.0-37.0); MEAN PLATELET VOLUME 9.8 fl (9.6-12.3); MONO # 0.6 10*3/uL (0.1-1.0); MONO % 6.3 % (3.0-9.0); NEUT % 56.5 % (47.0-73.0); PLATELET COUNT AUTOMATED 265 10*3/uL (130-400); RED BLOOD COUNT 4.41 10*6/uL (4.10-5.10); RED CELL DISTRI WIDTH 12.4 % (0-14.5); WHITE BLOOD COUNT 8.8 10*3/uL (4.8-10.8)
[2023-07-22 21:50] LABS: ACT PARTIAL THROMBO TIME 27.4 SECONDS (20.0-32.1)
[2023-07-22 22:03] LABS: ALKALINE PHOSPHATASE 90 U/L (46-116); BUN 14 mg/dl (9-23); CHLORIDE 110 mmol/L (98-107); LIPASE 57 U/L (12-53); POTASSIUM 3.6 mmol/L (3.4-5.1); SGPT/ALT 24 U/L (5-49); TOTAL PROTEIN 7.2 gm/dL (6.0-8.0)
[2023-07-23 00:09] LABS: BILIRUBIN Negative (Negative); BLOOD Negative (Negative); CLARITY Cloudy (Clear); COLOR Yellow (Yellow); GLUCOSE Negative (Negative); KETONE Trace (Negative); LEUKO ESTERASE 1+ (Negative); NITRITE Negative (Negative); SPECIFIC GRAVITY >= 1.030 (1.001-1.030); UROBILINOGEN 0.2 E.U./dl (0.0-1.0)
[2023-07-23 00:50] LABS: EPITHELIAL CELLS 16-20
[2023-07-23 00:51] LABS: CALCIUM OXALATE CRYSTALS 1+
[2023-07-23] MEDS ORDERED: CYCLOBENZAPRINE10 MG PO (01:03)
== END 2023-07-23 01:09 | disposition home or self-care (01) ==
LOC: ED 21:19
PROVIDERS: Internal Medicine
DX: R07.89 Other chest pain (principal); R11.0 Nausea; F17.200 Nicotine dependence, unspecified, uncomplicated; Z79.82 Long term (current) use of aspirin; Z79.899 Other long term (current) drug therapy; Z95.5 Presence of coronary angioplasty implant and graft; Z90.711 Acquired absence of uterus with remaining cervical stump; Z90.49 Acquired absence of other specified parts of digestive tract; Z98.51 Tubal ligation status

== ENCOUNTER 2023-10-25 11:31 | Emergency (ER) | payer OTHER ==
[~2023-10-25] VITALS: Ht 157.4 cm; Wt 97.5 kg
[2023-10-25 11:40] VITALS: BP 154/73
[2023-10-25] MEDS ORDERED: Ketorolac Tromethamine 15 MG/ML VIAL IV ONE (11:50)
[2023-10-25] MEDS ORDERED: MORPHINE Sulfate 2 MG/ML SYR IV ONE (11:50)
[2023-10-25] MEDS ORDERED: SODIUM CHLORIDE 0.9% 1,000 ML IV ONE (11:50)
[2023-10-25 12:00] LABS: BASO % 0.4 % (0.0-1.0); EOS % 0.7 % (1.0-4.0); HEMATOCRIT 42.1 % (37.0-47.0); LYMPH # 2.1 10*3/uL (1.3-4.4); LYMPH % 38.8 % (27.0-41.0); MEAN CELL VOLUME 90.1 fl (81.0-99.0); MEAN CORPUSCULAR HGB 28.9 pg (27.0-31.0); MEAN CORPUSCULAR HGB CONC 32.1 g/dl (33.0-37.0); MEAN PLATELET VOLUME 9.3 fl (9.6-12.3); MONO # 0.3 10*3/uL (0.1-1.0); MONO % 5.1 % (3.0-9.0); NEUT % 54.8 % (47.0-73.0); PLATELET COUNT AUTOMATED 268 10*3/uL (130-400); RED BLOOD COUNT 4.67 10*6/uL (4.10-5.10); RED CELL DISTRI WIDTH 12.8 % (0-14.5); WHITE BLOOD COUNT 5.5 10*3/uL (4.8-10.8)
[2023-10-25 12:23] LABS: ALKALINE PHOSPHATASE 78 U/L (46-116); BUN 8 mg/dl (9-23); CHLORIDE 107 mmol/L (98-107); LIPASE 53 U/L (12-53); POTASSIUM 4.1 mmol/L (3.4-5.1); SGPT/ALT 23 U/L (5-49); TOTAL PROTEIN 7.1 gm/dL (6.0-8.0)
[2023-10-25 12:42] LABS: BILIRUBIN Negative (Negative); BLOOD Negative (Negative); CLARITY Cloudy (Clear); COLOR Yellow (Yellow); GLUCOSE Negative (Negative); KETONE Negative (Negative); LEUKO ESTERASE 2+ (Negative); NITRITE Negative (Negative); SPECIFIC GRAVITY 1.015 (1.001-1.030); UROBILINOGEN 0.2 E.U./dl (0.0-1.0)
[2023-10-25 13:11] LABS: BACTERIA 3+; EPITHELIAL CELLS 16-20; WBC 16-20 wbc/hpf (0-5)
[2023-10-25] MEDS ORDERED: SEPTDS PO (13:52)
[2023-10-25] MEDS ORDERED: MELOXICAM15 MG PO (13:52)
== END 2023-10-25 14:05 | disposition home or self-care (01) ==
LOC: ED 11:31
PROVIDERS: Emergency Medicine
DX: N39.0 Urinary tract infection, site not specified (principal); Z98.890 Other specified postprocedural states; Z90.710 Acquired absence of both cervix and uterus; Z95.5 Presence of coronary angioplasty implant and graft; Z98.51 Tubal ligation status; Z72.0 Tobacco use

== ENCOUNTER 2023-12-21 09:00 | Emergency (ER) | payer OTHER ==
[~2023-12-21] VITALS: Ht 157.4 cm; Wt 94.3 kg
[~2023-12-21 09:00] MED LIST changes: +MELOXICAM15 MG PO
[2023-12-21 09:10] VITALS: BP 154/62
[2023-12-21] MEDS ORDERED: Lactated Ringer's Solution 1,000 ML IV SCH (09:30)
[2023-12-21] MEDS ORDERED: Ondansetron Hydrochloride 4 MG/2 ML VIAL IV ONE (09:30)
[2023-12-21] MEDS ORDERED: MORPHINE Sulfate 2 MG/ML SYR IV ONE (09:30)
[2023-12-21 09:59] LABS: BASO % 0.3 % (0.0-1.0); EOS # 0.1 10*3/uL (0.0-0.4); EOS % 0.9 % (1.0-4.0); LYMPH # 2.1 10*3/uL (1.3-4.4); MEAN CELL VOLUME 91.1 fl (81.0-99.0); MEAN CORPUSCULAR HGB 30.6 pg (27.0-31.0); MEAN CORPUSCULAR HGB CONC 33.6 g/dl (33.0-37.0); MEAN PLATELET VOLUME 9.6 fl (9.6-12.3); MONO # 0.3 10*3/uL (0.1-1.0); MONO % 5.4 % (3.0-9.0); NEUT # 3.3 10*3/uL (2.3-7.9); NEUT % 57.2 % (47.0-73.0); PLATELET COUNT AUTOMATED 254 10*3/uL (130-400); RED BLOOD COUNT 4.28 10*6/uL (4.10-5.10); RED CELL DISTRI WIDTH 13.3 % (0-14.5); WHITE BLOOD COUNT 5.7 10*3/uL (4.8-10.8)
[2023-12-21 09:59] LABS: BILIRUBIN Negative (Negative); BLOOD Negative (Negative); CLARITY Cloudy (Clear); COLOR Yellow (Yellow); GLUCOSE Negative (Negative); KETONE Negative (Negative); LEUKO ESTERASE 2+ (Negative); NITRITE Negative (Negative); PH 6.5 (4.5-8.0); UROBILINOGEN 0.2 E.U./dl (0.0-1.0)
[2023-12-21 10:16] LABS: BACTERIA 1+; WBC 16-20 wbc/hpf (0-5)
[2023-12-21 10:20] LABS: ALKALINE PHOSPHATASE 65 U/L (46-116); BUN 12 mg/dl (9-23); CHLORIDE 110 mmol/L (98-107); LIPASE 49 U/L (12-53); POTASSIUM 3.7 mmol/L (3.4-5.1); SGPT/ALT 17 U/L (5-49); TOTAL PROTEIN 6.7 gm/dL (6.0-8.0)
[2023-12-21] MEDS ORDERED: MACROBID100 M1 PO (11:37)
== END 2023-12-21 11:37 | disposition home or self-care (01) ==
LOC: ED 09:00
PROVIDERS: Emergency Medicine
DX: N39.0 Urinary tract infection, site not specified (principal); F41.9 Anxiety disorder, unspecified; K21.9 Gastro-esophageal reflux disease without esophagitis; E83.41 Hypermagnesemia; E87.6 Hypokalemia; I10 Essential (primary) hypertension; F32.A Depression, unspecified; I25.10 Atherosclerotic heart disease of native coronary artery without angina pectoris; M19.90 Unspecified osteoarthritis, unspecified site; E11.65 Type 2 diabetes mellitus with hyperglycemia; Z72.0 Tobacco use; Z98.890 Other specified postprocedural states; Z90.710 Acquired absence of both cervix and uterus; Z95.5 Presence of coronary angioplasty implant and graft; Z98.51 Tubal ligation status

== ENCOUNTER 2023-12-24 19:46 | Emergency (ER) | payer OTHER ==
[~2023-12-24] VITALS: Ht 152.4 cm
[~2023-12-24 19:46] MED LIST changes: +MACROBID100 M1 PO
[2023-12-24 20:04] VITALS: BP 142/80
[2023-12-24] MEDS ORDERED: CEPHALEXIN500 M1 PO (20:11)
[2023-12-24] MEDS ORDERED: CEPHALEXIN 500 MG CAP PO ONE (20:15)
== END 2023-12-24 20:47 | disposition home or self-care (01) ==
LOC: ED 19:46
DX: L03.012 Cellulitis of left finger (principal); F41.9 Anxiety disorder, unspecified; I10 Essential (primary) hypertension; K21.9 Gastro-esophageal reflux disease without esophagitis; F32.A Depression, unspecified; I25.10 Atherosclerotic heart disease of native coronary artery without angina pectoris; M19.90 Unspecified osteoarthritis, unspecified site; E11.9 Type 2 diabetes mellitus without complications; Z72.0 Tobacco use; Z98.890 Other specified postprocedural states; Z95.5 Presence of coronary angioplasty implant and graft; Z98.51 Tubal ligation status; Z90.710 Acquired absence of both cervix and uterus

== ENCOUNTER → 2024-01-17 | Outpatient (CLI) | payer OTHER ==
[2024-01-17 10:47] LABS: BASO % 0.4 % (0.0-1.0); EOS % 0.7 % (1.0-4.0); HEMATOCRIT 41.3 % (37.0-47.0); LYMPH % 35.1 % (27.0-41.0); MEAN CORPUSCULAR HGB 29.3 pg (27.0-31.0); MEAN CORPUSCULAR HGB CONC 32.9 g/dl (33.0-37.0); MEAN PLATELET VOLUME 9.6 fl (9.6-12.3); MONO # 0.3 10*3/uL (0.1-1.0); MONO % 5.4 % (3.0-9.0); NEUT # 3.2 10*3/uL (2.3-7.9); NEUT % 58.2 % (47.0-73.0); PLATELET COUNT AUTOMATED 254 10*3/uL (130-400); RED BLOOD COUNT 4.64 10*6/uL (4.10-5.10); RED CELL DISTRI WIDTH 12.5 % (0-14.5); WHITE BLOOD COUNT 5.6 10*3/uL (4.8-10.8)
[2024-01-17 11:17] LABS: ALKALINE PHOSPHATASE 80 U/L (46-116); BUN 11 mg/dl (9-23); CHLORIDE 107 mmol/L (98-107); CHOLESTEROL 108 mg/dL (<200); POTASSIUM 4.1 mmol/L (3.4-5.1); SGPT/ALT 24 U/L (5-49); TRIGLYCERIDES 155 mg/dl (<150)
== END | disposition home or self-care (01) ==
LOC: LAB 10:19
PROVIDERS: ATTEND Student in an Organized Health Care Education/Training Program
DX: K91.2 Postsurgical malabsorption, not elsewhere classified (principal)

== ENCOUNTER 2024-03-25 12:37 | Emergency (ER) | payer OTHER ==
[~2024-03-25] VITALS: Ht 157.4 cm; Wt 97.5 kg
[2024-03-25 13:47] LABS: BILIRUBIN Negative (Negative); BLOOD Negative (Negative); CLARITY Clear (Clear); COLOR Yellow (Yellow); GLUCOSE Negative (Negative); KETONE Negative (Negative); LEUKO ESTERASE 2+ (Negative); NITRITE Negative (Negative); PH 5.5 (4.5-8.0); SPECIFIC GRAVITY 1.015 (1.001-1.030); UROBILINOGEN 0.2 E.U./dl (0.0-1.0)
[2024-03-25 14:01] LABS: BACTERIA TRACE; WBC 21-30 wbc/hpf (0-5)
[2024-03-25] MEDS ORDERED: SODIUM CHLORIDE 0.9% 1,000 ML IV ONE (14:10)
[2024-03-25] MEDS ORDERED: HYDROmorphONE Hydrochloride 0.5 MG/0.5 ML SYRINGE IV ONE (14:10)
[2024-03-25] MEDS ORDERED: Ondansetron Hydrochloride 4 MG/2 ML VIAL IV ONE (14:10)
[2024-03-25] MEDS ORDERED: Ceftriaxone Sodium 1 GM/10 ML SYR IV ONE (14:10)
[2024-03-25 14:18] LABS: BASO % 0.4 % (0.0-1.0); EOS # 0.1 10*3/uL (0.0-0.4); EOS % 0.8 % (1.0-4.0); HEMATOCRIT 42.4 % (37.0-47.0); LYMPH # 2.3 10*3/uL (1.3-4.4); LYMPH % 31.3 % (27.0-41.0); MEAN CELL VOLUME 89.5 fl (81.0-99.0); MEAN CORPUSCULAR HGB 28.7 pg (27.0-31.0); MEAN CORPUSCULAR HGB CONC 32.1 g/dl (33.0-37.0); MEAN PLATELET VOLUME 9.7 fl (9.6-12.3); MONO # 0.5 10*3/uL (0.1-1.0); MONO % 6.5 % (3.0-9.0); NEUT # 4.5 10*3/uL (2.3-7.9); NEUT % 60.6 % (47.0-73.0); PLATELET COUNT AUTOMATED 289 10*3/uL (130-400); RED BLOOD COUNT 4.74 10*6/uL (4.10-5.10); RED CELL DISTRI WIDTH 12.9 % (0-14.5); WHITE BLOOD COUNT 7.4 10*3/uL (4.8-10.8)
[2024-03-25 14:45] LABS: ALKALINE PHOSPHATASE 95 U/L (46-116); BUN 13 mg/dl (9-23); CHLORIDE 107 mmol/L (98-107); LIPASE 50 U/L (12-53); POTASSIUM 4.4 mmol/L (3.4-5.1); SGPT/ALT 22 U/L (5-49); TOTAL PROTEIN 7.3 gm/dL (6.0-8.0)
[2024-03-25] MEDS ORDERED: CIPRO500 MG PO (16:01)
[2024-03-25] MEDS ORDERED: Ketorolac Tromethamine 30 MG/ML VIAL IV ONE (16:05)
== END 2024-03-25 16:27 | disposition home or self-care (01) ==
LOC: ED 12:37
PROVIDERS: Emergency Medicine
DX: N39.0 Urinary tract infection, site not specified (principal); F41.9 Anxiety disorder, unspecified; I10 Essential (primary) hypertension; K21.9 Gastro-esophageal reflux disease without esophagitis; E11.65 Type 2 diabetes mellitus with hyperglycemia; E83.41 Hypermagnesemia; E87.6 Hypokalemia; I25.10 Atherosclerotic heart disease of native coronary artery without angina pectoris; M19.90 Unspecified osteoarthritis, unspecified site; F17.200 Nicotine dependence, unspecified, uncomplicated; Z98.890 Other specified postprocedural states; Z90.49 Acquired absence of other specified parts of digestive tract; Z98.51 Tubal ligation status; Z90.711 Acquired absence of uterus with remaining cervical stump

== ENCOUNTER 2024-08-28 16:08 | Emergency (ER) | payer OTHER ==
[~2024-08-28] VITALS: Wt 83.5 kg
[2024-08-28 16:47] VITALS: BP 141/87
[2024-08-28] MEDS ORDERED: Acetaminophen/Oxycodone 5 MG/325 MG TABLET PO ONE (17:30)
== END 2024-08-28 18:54 | disposition home or self-care (01) ==
LOC: ED 16:08
DX: S00.83XA Contusion of other part of head, initial encounter (principal); S09.8XXA Other specified injuries of head, initial encounter; F41.9 Anxiety disorder, unspecified; I10 Essential (primary) hypertension; K21.9 Gastro-esophageal reflux disease without esophagitis; F32.A Depression, unspecified; I25.10 Atherosclerotic heart disease of native coronary artery without angina pectoris; M19.90 Unspecified osteoarthritis, unspecified site; E11.9 Type 2 diabetes mellitus without complications; Z90.710 Acquired absence of both cervix and uterus; Z90.49 Acquired absence of other specified parts of digestive tract; Z98.890 Other specified postprocedural states; Z95.5 Presence of coronary angioplasty implant and graft; Z72.0 Tobacco use; W01.10XA Fall on same level from slipping, tripping and stumbling with subsequent striking against unspecified object, initial encounter; Y93.89 Activity, other specified; Y92.89 Other specified places as the place of occurrence of the external cause; Y99.8 Other external cause status

== ENCOUNTER 2024-09-30 23:19 | Emergency (ER) | payer OTHER ==
[~2024-09-30] VITALS: Ht 157.4 cm; Wt 82.1 kg
[2024-09-30 23:30] VITALS: BP 155/79
[2024-10-01 00:12] LABS: BILIRUBIN Negative (Negative); BLOOD Negative (Negative); CLARITY Clear (Clear); COLOR Yellow (Yellow); GLUCOSE Negative (Negative); KETONE 1+ (Negative); LEUKO ESTERASE 1+ (Negative); NITRITE Negative (Negative); PH 7.5 (4.5-8.0); SPECIFIC GRAVITY 1.025 (1.001-1.030)
[2024-10-01 00:18] LABS: BACTERIA 2+; MUCOUS 2+; RBC 0-2 rbc/hpf (0-2)
[2024-10-01] MEDS ORDERED: Ciprofloxacin Hydrochloride 500 MG TAB PO ONE (00:25)
[2024-10-01] MEDS ORDERED: Ketorolac Tromethamine 30 MG/ML VIAL IM ONE (00:25)
[2024-10-01] MEDS ORDERED: CIPRO500 MG PO (00:40)
== END 2024-10-01 00:46 | disposition home or self-care (01) ==
LOC: ED 23:19
PROVIDERS: Internal Medicine
DX: N39.0 Urinary tract infection, site not specified (principal); R42 Dizziness and giddiness; F41.9 Anxiety disorder, unspecified; I10 Essential (primary) hypertension; K21.9 Gastro-esophageal reflux disease without esophagitis; F32.A Depression, unspecified; I25.10 Atherosclerotic heart disease of native coronary artery without angina pectoris; E11.9 Type 2 diabetes mellitus without complications; Z72.0 Tobacco use; Z95.5 Presence of coronary angioplasty implant and graft; Z98.890 Other specified postprocedural states; Z90.710 Acquired absence of both cervix and uterus; Z90.49 Acquired absence of other specified parts of digestive tract

== ENCOUNTER 2025-04-22 10:46 | Emergency (ER) | payer OTHER ==
[~2025-04-22] VITALS: Wt 71.2 kg
[2025-04-22 10:53] VITALS: BP 129/78
[2025-04-22 11:05] LABS: BILIRUBIN 1+ (Negative); BLOOD 3+ (Negative); CLARITY Turbid (Clear); COLOR Dark Yellow (Yellow); KETONE Trace (Negative); LEUKO ESTERASE 2+ (Negative); NITRITE Negative (Negative); PH 6.0 (4.5-8.0); SPECIFIC GRAVITY 1.020 (1.001-1.030); UROBILINOGEN 1.0 E.U./dl (0.0-1.0)
[2025-04-22 11:10] LABS: CALCIUM OXALATE CRYSTALS 3+; RBC TNTC rbc/hpf (0-2)
[2025-04-22] MEDS ORDERED: SODIUM CHLORIDE 0.9% 500 ML IV ONE (11:10)
[2025-04-22] MEDS ORDERED: Ondansetron Hydrochloride 4 MG/2 ML VIAL IV ONE (11:10)
[2025-04-22 11:11] LABS: BACTERIA TRACE
[2025-04-22 11:21] LABS: BASO # 0.0 10*3/uL (0.0-0.1); BASO % 0.3 % (0.0-1.0); EOS # 0.1 10*3/uL (0.0-0.4); EOS % 0.8 % (1.0-4.0); MEAN CELL VOLUME 92.6 fl (81.0-99.0); MEAN CORPUSCULAR HGB 29.6 pg (27.0-31.0); MEAN PLATELET VOLUME 9.5 fl (9.6-12.3); MONO # 0.3 10*3/uL (0.1-1.0); MONO % 4.8 % (3.0-9.0); NEUT # 3.7 10*3/uL (2.3-7.9); NEUT % 59.4 % (47.0-73.0); NUCLEATED RED BLOOD CELL 0.0 % (0.0-0.0); NUCLEATED RED BLOOD CELL 0.0 10*3/uL (0.0-0.0); PLATELET COUNT AUTOMATED 220 10*3/uL (130-400); RED CELL DISTRI WIDTH 12.4 % (0-14.5)
[2025-04-22 11:42] LABS: BUN 9 mg/dl (9-23); SGPT/ALT 43 U/L (5-49)
[2025-04-22] MEDS ORDERED: REGLAN10 M1 PO (12:26)
[2025-04-22] MEDS ORDERED: Ondansetron4 MG PO (12:26)
== END 2025-04-22 12:36 | disposition home or self-care (01) ==
LOC: ED 10:46
PROVIDERS: Emergency Medicine
DX: N20.0 Calculus of kidney (principal); R10.84 Generalized abdominal pain; R31.9 Hematuria, unspecified; B34.9 Viral infection, unspecified; F41.9 Anxiety disorder, unspecified; I10 Essential (primary) hypertension; K21.9 Gastro-esophageal reflux disease without esophagitis; F32.A Depression, unspecified; I25.10 Atherosclerotic heart disease of native coronary artery without angina pectoris; M17.12 Unilateral primary osteoarthritis, left knee; E11.9 Type 2 diabetes mellitus without complications; Z90.710 Acquired absence of both cervix and uterus; Z90.49 Acquired absence of other specified parts of digestive tract; Z98.890 Other specified postprocedural states

== ENCOUNTER 2025-05-02 17:34 | Inpatient (IN) | payer OTHER ==
[~2025-05-02] VITALS: Wt 71.2 kg
[~2025-05-02 17:34] MED LIST changes: +Ondansetron4 MG PO; +REGLAN10 M1 PO
[2025-05-02 17:45] VITALS: BP 138/81
[2025-05-02] MEDS ORDERED: IOHEXOL 300 MG/ML 100 ML VIAL IV ONE (18:15)
[2025-05-02 18:19] LABS: BASO # 0.0 10*3/uL (0.0-0.1); BASO % 0.2 % (0.0-1.0); EOS # 0.0 10*3/uL (0.0-0.4); EOS % 0.0 % (1.0-4.0); MEAN CELL VOLUME 91.6 fl (81.0-99.0); MEAN CORPUSCULAR HGB 30.3 pg (27.0-31.0); MEAN PLATELET VOLUME 10.3 fl (9.6-12.3); MONO # 0.1 10*3/uL (0.1-1.0); MONO % 1.3 % (3.0-9.0); NEUT # 5.4 10*3/uL (2.3-7.9); NEUT % 87.8 % (47.0-73.0); NUCLEATED RED BLOOD CELL 0.0 % (0.0-0.0); NUCLEATED RED BLOOD CELL 0.0 10*3/uL (0.0-0.0); PLATELET COUNT AUTOMATED 231 10*3/uL (130-400); RED CELL DISTRI WIDTH 12.8 % (0-14.5)
[2025-05-02 18:29] LABS: BILIRUBIN Negative (Negative); BLOOD Negative (Negative); CLARITY Clear (Clear); COLOR Yellow (Yellow); KETONE Trace (Negative); LEUKO ESTERASE 1+ (Negative); NITRITE Negative (Negative); PH 7.5 (4.5-8.0); SPECIFIC GRAVITY 1.025 (1.001-1.030); UROBILINOGEN 1.0 E.U./dl (0.0-1.0)
[2025-05-02 18:37] LABS: BACTERIA 1+; MUCOUS 2+; WBC 16-20 wbc/hpf (0-5)
[2025-05-02 18:40] LABS: BUN 8 mg/dl (9-23); SGPT/ALT 39 U/L (5-49)
[2025-05-02] MEDS ORDERED: HYDROmorphONE Hydrochloride 0.5 MG/0.5 ML SYRINGE IV ONE (18:50)
[2025-05-02] MEDS ORDERED: SODIUM CHLORIDE 0.9% 1,000 ML IV ONE ×2 (18:50→23:45)
[2025-05-02] MEDS ORDERED: Ondansetron Hydrochloride 4 MG/2 ML VIAL IV ONE (18:50)
[2025-05-02] MEDS ORDERED: MG-AL HYDROXIDE/SIMETICONE 30 ML UDC PO STA (21:12)
[2025-05-02] MEDS ORDERED: Dicyclomine Hydrochloride 20 MG/10 ML OSYR PO STA (21:12)
[2025-05-02] MEDS ORDERED: TRAZODONE50 MG PO (21:56)
[2025-05-02 21:57] VITALS: BP 159/93
[2025-05-02] MEDS ORDERED: BISACODYL 10 MG SUPP R PRN (23:45)
[2025-05-02] MEDS ORDERED: ACETAMINOPHEN 325 MG TAB PO PRN (23:45)
[2025-05-02] MEDS ORDERED: Acetaminophen/Hydrocodone 5 MG/325 MG TABLET PO PRN (23:45)
[2025-05-02] MEDS ORDERED: BISACODYL 5 MG TAB PO PRN (23:45)
[2025-05-02] MEDS ORDERED: Ondansetron Hydrochloride 4 MG/2 ML VIAL IV PRN (23:45)
[2025-05-02] MEDS ORDERED: ACETAMINOPHEN 650 MG SUPP R PRN (23:45)
[2025-05-03 02:21] VITALS: BP 142/78
[2025-05-03 06:13] VITALS: BP 139/84
[2025-05-03 06:15] LABS: BASO # 0.0 10*3/uL (0.0-0.1); BASO % 0.1 % (0.0-1.0); EOS # 0.0 10*3/uL (0.0-0.4); EOS % 0.0 % (1.0-4.0); MEAN CELL VOLUME 91.9 fl (81.0-99.0); MEAN CORPUSCULAR HGB 29.8 pg (27.0-31.0); MEAN PLATELET VOLUME 10.7 fl (9.6-12.3); MONO # 0.3 10*3/uL (0.1-1.0); MONO % 5.1 % (3.0-9.0); NEUT # 5.1 10*3/uL (2.3-7.9); NEUT % 77.0 % (47.0-73.0); NUCLEATED RED BLOOD CELL 0.0 % (0.0-0.0); NUCLEATED RED BLOOD CELL 0.0 10*3/uL (0.0-0.0); PLATELET COUNT AUTOMATED 239 10*3/uL (130-400); RED CELL DISTRI WIDTH 12.9 % (0-14.5)
[2025-05-03 06:36] LABS: ACT PARTIAL THROMBO TIME 25.8 SECONDS (20.0-32.1)
[2025-05-03 06:43] LABS: BUN 6 mg/dl (9-23); FREE T4 1.21 ng/dl (0.89-1.76); LDL CHOLESTEROL 40 mg/dL (9-159); SGPT/ALT 35 U/L (5-49)
[2025-05-03 07:10] LABS: VITAMIN D, 25-HYDROXY 53.3 ng/mL (30-100)
[2025-05-03 07:37] VITALS: BP 160/78
[2025-05-03] MEDS ORDERED: SODIUM CHLORIDE 0.9% 1,000 ML IV ONE (09:00)
[2025-05-03] MEDS ORDERED: HYDROmorphONE Hydrochloride 0.5 MG/0.5 ML SYRINGE IV PRN (09:00)
[2025-05-03] MEDS ORDERED: Venlafaxine Hydrochloride 75 MG CAP PO SCH (10:00)
[2025-05-03] MEDS ORDERED: LISINOPRIL 20 MG TAB PO SCH (10:00)
[2025-05-03] MEDS ORDERED: ASPIRIN ENTERIC COATED 81 MG TAB PO SCH (10:00)
[2025-05-03] MEDS ORDERED: ATORVASTATIN CALCIUM 40 MG TABLET PO SCH (22:00)
== END 2025-05-03 09:18 | disposition short-term general hospital (02) | DRG 254 ==
LOC: ED 17:34 → EDHOLD 21:50
PROVIDERS: Nurse Practitioner Family; Student in an Organized Health Care Education/Training Program; ADMIT Student in an Organized Health Care Education/Training Program; ATTEND Student in an Organized Health Care Education/Training Program
DX: T18.128A Food in esophagus causing other injury, initial encounter (principal); I10 Essential (primary) hypertension; E78.5 Hyperlipidemia, unspecified; N30.00 Acute cystitis without hematuria; F41.9 Anxiety disorder, unspecified; I25.10 Atherosclerotic heart disease of native coronary artery without angina pectoris; K31.84 Gastroparesis; K21.9 Gastro-esophageal reflux disease without esophagitis; E11.43 Type 2 diabetes mellitus with diabetic autonomic (poly)neuropathy; E11.65 Type 2 diabetes mellitus with hyperglycemia; F17.210 Nicotine dependence, cigarettes, uncomplicated; E55.9 Vitamin D deficiency, unspecified; E53.8 Deficiency of other specified B group vitamins; Z95.5 Presence of coronary angioplasty implant and graft; Z90.710 Acquired absence of both cervix and uterus; Z90.721 Acquired absence of ovaries, unilateral; Z90.49 Acquired absence of other specified parts of digestive tract; Z71.6 Tobacco abuse counseling; Z98.51 Tubal ligation status; Z83.1 Family history of other infectious and parasitic diseases; Z83.3 Family history of diabetes mellitus; Z82.49 Family history of ischemic heart disease and other diseases of the circulatory system; Z82.3 Family history of stroke; Z98.84 Bariatric surgery status; Y93.89 Activity, other specified; Y92.89 Other specified places as the place of occurrence of the external cause; Y99.8 Other external cause status; W44.F3XA Food entering into or through a natural orifice, initial encounter

== ENCOUNTER 2025-05-20 20:14 | Emergency (ER) | payer OTHER ==
[~2025-05-20] VITALS: Wt 71.2 kg
[~2025-05-20 20:14] MED LIST changes: +TRAZODONE50 MG PO
[2025-05-20 20:23] VITALS: BP 139/100
[2025-05-20] MEDS ORDERED: SODIUM CHLORIDE 0.9% 1,000 ML IV ONE (21:25)
[2025-05-20] MEDS ORDERED: Ondansetron Hydrochloride 4 MG/2 ML VIAL IV ONE (21:25)
[2025-05-20 21:30] LABS: BILIRUBIN Negative (Negative); BLOOD Negative (Negative); CLARITY Cloudy (Clear); COLOR Yellow (Yellow); KETONE Trace (Negative); LEUKO ESTERASE 1+ (Negative); NITRITE Negative (Negative); PH 5.5 (4.5-8.0); SPECIFIC GRAVITY >= 1.030 (1.001-1.030); UROBILINOGEN 1.0 E.U./dl (0.0-1.0)
[2025-05-20 21:36] LABS: BASO # 0.0 10*3/uL (0.0-0.1); BASO % 0.4 % (0.0-1.0); EOS # 0.1 10*3/uL (0.0-0.4); EOS % 0.7 % (1.0-4.0); MEAN CELL VOLUME 92.2 fl (81.0-99.0); MEAN CORPUSCULAR HGB 30.2 pg (27.0-31.0); MEAN PLATELET VOLUME 9.6 fl (9.6-12.3); MONO # 0.5 10*3/uL (0.1-1.0); MONO % 5.6 % (3.0-9.0); NEUT # 4.3 10*3/uL (2.3-7.9); NEUT % 53.0 % (47.0-73.0); NUCLEATED RED BLOOD CELL 0.0 % (0.0-0.0); NUCLEATED RED BLOOD CELL 0.0 10*3/uL (0.0-0.0); PLATELET COUNT AUTOMATED 254 10*3/uL (130-400); RED CELL DISTRI WIDTH 12.1 % (0-14.5)
[2025-05-20 21:49] LABS: BACTERIA 1+; CALCIUM OXALATE CRYSTALS 1+; EPITHELIAL CELLS 31-40; MUCOUS 1+; RBC 0-2 rbc/hpf (0-2); WBC 16-20 wbc/hpf (0-5)
[2025-05-20 21:55] LABS: BUN 14 mg/dl (9-23)
[2025-05-20] MEDS ORDERED: CIPRO500 MG PO (22:34)
== END 2025-05-20 22:43 | disposition home or self-care (01) ==
LOC: ED 20:14
PROVIDERS: Internal Medicine
DX: N39.0 Urinary tract infection, site not specified (principal); F41.9 Anxiety disorder, unspecified; I10 Essential (primary) hypertension; K21.9 Gastro-esophageal reflux disease without esophagitis; F32.A Depression, unspecified; I25.10 Atherosclerotic heart disease of native coronary artery without angina pectoris; F17.210 Nicotine dependence, cigarettes, uncomplicated; Z90.49 Acquired absence of other specified parts of digestive tract; Z90.710 Acquired absence of both cervix and uterus

== ENCOUNTER 2025-06-08 20:19 | Emergency (ER) | payer OTHER ==
[~2025-06-08] VITALS: Ht 160 cm; Wt 71.7 kg
[2025-06-08 20:43] VITALS: BP 167/85
[2025-06-08] MEDS ORDERED: SODIUM CHLORIDE 0.9% 1,000 ML IV ONE (20:55)
[2025-06-08] MEDS ORDERED: Ondansetron Hydrochloride 4 MG/2 ML VIAL IV ONE (20:55)
[2025-06-08] MEDS ORDERED: HYDROmorphONE Hydrochloride 0.5 MG/0.5 ML SYRINGE IV ONE (20:55)
[2025-06-08 21:06] LABS: BASO # 0.0 10*3/uL (0.0-0.1); BASO % 0.4 % (0.0-1.0); EOS # 0.1 10*3/uL (0.0-0.4); EOS % 1.4 % (1.0-4.0); MEAN CELL VOLUME 93.1 fl (81.0-99.0); MEAN CORPUSCULAR HGB 30.1 pg (27.0-31.0); MEAN PLATELET VOLUME 9.9 fl (9.6-12.3); MONO # 0.5 10*3/uL (0.1-1.0); MONO % 5.9 % (3.0-9.0); NEUT # 4.0 10*3/uL (2.3-7.9); NEUT % 52.8 % (47.0-73.0); NUCLEATED RED BLOOD CELL 0.0 % (0.0-0.0); NUCLEATED RED BLOOD CELL 0.0 10*3/uL (0.0-0.0); PLATELET COUNT AUTOMATED 222 10*3/uL (130-400); RED CELL DISTRI WIDTH 12.8 % (0-14.5)
[2025-06-08 21:23] LABS: BUN 14 mg/dl (9-23)
[2025-06-08 22:46] LABS: BILIRUBIN Negative (Negative); CLARITY Cloudy (Clear); COLOR Yellow (Yellow); KETONE Negative (Negative); LEUKO ESTERASE 1+ (Negative); SPECIFIC GRAVITY 1.020 (1.001-1.030)
[2025-06-08 22:47] LABS: BLOOD Negative (Negative); NITRITE Negative (Negative); PH 6.0 (4.5-8.0); UROBILINOGEN 0.2 E.U./dl (0.0-1.0)
[2025-06-08 22:54] LABS: BACTERIA 1+; MUCOUS TRACE
[2025-06-08 23:00] LABS: RBC 0-2 rbc/hpf (0-2); WBC 16-20 wbc/hpf (0-5)
== END 2025-06-08 23:13 | disposition home or self-care (01) ==
LOC: ED 20:19
PROVIDERS: Nurse Practitioner Family
DX: R10.30 Lower abdominal pain, unspecified (principal); K21.9 Gastro-esophageal reflux disease without esophagitis; F41.9 Anxiety disorder, unspecified; E11.9 Type 2 diabetes mellitus without complications; E66.9 Obesity, unspecified; I10 Essential (primary) hypertension; I25.10 Atherosclerotic heart disease of native coronary artery without angina pectoris; M17.12 Unilateral primary osteoarthritis, left knee; F17.290 Nicotine dependence, other tobacco product, uncomplicated; Z90.49 Acquired absence of other specified parts of digestive tract; Z98.890 Other specified postprocedural states; Z90.710 Acquired absence of both cervix and uterus; Z87.440 Personal history of urinary (tract) infections

== ENCOUNTER 2025-06-20 11:35 | Emergency (ER) | payer OTHER ==
[~2025-06-20] VITALS: Wt 71.7 kg
[2025-06-20] MEDS ORDERED: ASPIRIN, CHEWABLE 81 MG TAB PO ONE (12:05)
[2025-06-20 12:22] LABS: BASO # 0.0 10*3/uL (0.0-0.1); BASO % 0.4 % (0.0-1.0); EOS # 0.1 10*3/uL (0.0-0.4); EOS % 0.9 % (1.0-4.0); MEAN CELL VOLUME 89.2 fl (81.0-99.0); MEAN CORPUSCULAR HGB 29.6 pg (27.0-31.0); MEAN PLATELET VOLUME 9.7 fl (9.6-12.3); MONO # 0.4 10*3/uL (0.1-1.0); MONO % 6.0 % (3.0-9.0); NEUT # 4.1 10*3/uL (2.3-7.9); NEUT % 61.5 % (47.0-73.0); NUCLEATED RED BLOOD CELL 0.0 % (0.0-0.0); NUCLEATED RED BLOOD CELL 0.0 10*3/uL (0.0-0.0); PLATELET COUNT AUTOMATED 228 10*3/uL (130-400); RED CELL DISTRI WIDTH 12.6 % (0-14.5)
[2025-06-20 12:43] LABS: BUN 12 mg/dl (9-23)
[2025-06-20 13:49] VITALS: BP 122/76
== END 2025-06-20 15:06 | disposition home or self-care (01) ==
LOC: ED 11:35
PROVIDERS: Nurse Practitioner Family
DX: R07.89 Other chest pain (principal); I10 Essential (primary) hypertension; I25.2 Old myocardial infarction; F41.9 Anxiety disorder, unspecified; K21.9 Gastro-esophageal reflux disease without esophagitis; I25.10 Atherosclerotic heart disease of native coronary artery without angina pectoris; F32.A Depression, unspecified; M17.12 Unilateral primary osteoarthritis, left knee; E11.9 Type 2 diabetes mellitus without complications; Z98.890 Other specified postprocedural states; Z90.49 Acquired absence of other specified parts of digestive tract; Z90.710 Acquired absence of both cervix and uterus